=== PATIENT | male | born 1945 | race Caucasian/White ===

== ENCOUNTER 2017-09-02 09:46 | Inpatient (IN) | payer OTHER, MEDICARE ==
[~2017-09-02] VITALS: Ht 185.4 cm; Wt 111.5 kg
[~2017-09-02 09:46] MED LIST: ATEN25 PO; BACL10 PO; CHOL10002 PO; CIPR500 PO; CYAN500 PO; DABI150C PO; DABI75 PO; DILT180 PO; DILT240ER PO; FISH OIL 500 M1 EAC1 PO; FURO20 PO; GABA300 PO; HYDACE10B PO; IRBHYD300 PO; METF500 PO; METO50 PO; METR500 PO; MULTI-DAY PLUS1 EAC1 PO; PIOG15 PO; POTCHL20ER PO; PRAV20 PO; SERT50 PO; TAMS.4ER PO; TEMA7.5 PO; WARF5 PO; WARF7.5 PO
[2017-09-09 04:19] LABS: BASOPHILS PERCENT AUTO 0 % (0-2); EOSINOPHILS PERCENT AUTO 0 % (0-6); Hematocrit 36.4 % (37.0-53.0); Hemoglobin 12.1 g/dL (13.5-17.5); IMMATURE GRAN ABSOLUTE AUTO 0.04 K/mm3 (0.00-0.10); IMMATURE GRAN PERCENT AUTO 0 % (0-1); LYMPHOCYTES ABSOLUTE AUTO 1.69 K/mm3 (0.84-5.20); LYMPHOCYTES PERCENT AUTO 13 % (21-46); MONOCYTES ABSOLUTE AUTO 1.23 K/mm3 (0.16-1.47); MONOCYTES PERCENT AUTO 10 % (4-13); Mean Corpuscular HGB 28.9 pg (26.0-34.0); Mean Corpuscular HGB Conc 33.2 g/dL (31.5-36.5); Mean Corpuscular Volume 87 fL (80-100); Mean Platelet Volume 11.1 fL (9.1-12.4); NEUTROPHILS ABSOLUTE AUTO 9.88 K/mm3 (1.96-9.15); NEUTROPHILS PERCENT AUTO 77 % (41-73); Platelet Count 183 K/mm3 (150-400); RDW Coefficient Variation 14.8 % (11.7-14.2); RDW Standard Deviation 46.8 fL (35.1-46.3); Red Blood Cell Count 4.18 M/mm3 (4.30-5.90); White Blood Cell Count 12.84 K/mm3 (4.00-11.30)
[2017-09-09 06:41] LABS: Chloride, Blood 104 mmol/L (98-108); Potassium, Blood 4.5 mmol/L (3.5-5.5); Sodium, Blood 139 mmol/L (136-145)
[2017-09-09 06:58] LABS: Anion Gap 11 mmol/L (6-16); Blood Urea Nitrogen 17 mg/dL (8-24); Bun/Creatinine Ratio 17.1 (12.0-20.0); CO2, Blood 24 mmol/L (21-32); Calcium, Blood 9.3 mg/dL (8.5-10.1); Creatinine, Blood 0.99 mg/dL (0.60-1.20); Glomerular Filtration Rate >60 (60-); Glucose, Blood 175 mg/dL (70-99)
== END 2017-09-18 11:46 | DRG 470 ==
LOC: SURS 09-08 08:18 → PRE IP 09-08 10:05 → SURS 09-08 13:15
PROVIDERS: Orthopaedic Surgery
PROC: 0SRD0J9 Replacement of Left Knee Joint with Synthetic Substitute, Cemented, Open Approach (ICD-10-PCS; principal; 2017-09-08 10:05)
DX: M17.12 Unilateral primary osteoarthritis, left knee (principal); I48.91 Unspecified atrial fibrillation; E11.9 Type 2 diabetes mellitus without complications; G47.33 Obstructive sleep apnea (adult) (pediatric); E78.00 Pure hypercholesterolemia, unspecified; I10 Essential (primary) hypertension; F32.9 Major depressive disorder, single episode, unspecified; Z87.891 Personal history of nicotine dependence; Z91.81 History of falling; Z96.651 Presence of right artificial knee joint; Z79.01 Long term (current) use of anticoagulants; Z79.891 Long term (current) use of opiate analgesic; Z79.899 Other long term (current) drug therapy; Z79.84 Long term (current) use of oral hypoglycemic drugs
CPT/HCPCS: 36415; 73560-LT; 80048; 82947; 85025; 86850; 86900; 86901; 88300; 94640; 94760; 97110; 97116; 97162; 97165; 97530; 97535; C1776; G8978; G8979; G8987; G8988; J0171; J0690; J0735; J1100; J1885; J2250; J2405; J2795; J7120; Q0163

== ENCOUNTER 2018-10-05 19:57 | Inpatient (IN) | payer OTHER, MEDICARE ==
[~2018-10-05] VITALS: Ht 185.4 cm; Wt 121.3 kg
[~2018-10-05 19:57] MED LIST changes: -HYDACE10B PO; +Norco 10-325 T1 EACH PO
[2018-10-05] MEDS ORDERED: GLIP5 PO (20:30)
[2018-10-05] MEDS ORDERED: NITR100CA PO (20:32)
[2018-10-05 20:34] LABS: BASOPHILS ABSOLUTE AUTO 0.04 K/mm3 (0.00-0.23); BASOPHILS PERCENT AUTO 0 % (0-2); EOSINOPHILS ABSOLUTE AUTO 0.23 K/mm3 (0.00-0.68); EOSINOPHILS PERCENT AUTO 2 % (0-6); Hematocrit 39.9 % (37.0-53.0); Hemoglobin 12.8 g/dL (13.5-17.5); IMMATURE GRAN ABSOLUTE AUTO 0.05 K/mm3 (0.00-0.10); IMMATURE GRAN PERCENT AUTO 0 % (0-1); LYMPHOCYTES ABSOLUTE AUTO 4.53 K/mm3 (0.84-5.20); LYMPHOCYTES PERCENT AUTO 33 % (21-46); MONOCYTES ABSOLUTE AUTO 0.95 K/mm3 (0.16-1.47); MONOCYTES PERCENT AUTO 7 % (4-13); Mean Corpuscular HGB 29.6 pg (26.0-34.0); Mean Corpuscular HGB Conc 32.1 g/dL (31.5-36.5); Mean Corpuscular Volume 92 fL (80-100); Mean Platelet Volume 11.6 fL (9.1-12.4); NEUTROPHILS ABSOLUTE AUTO 8.05 K/mm3 (1.96-9.15); NEUTROPHILS PERCENT AUTO 58 % (41-73); Platelet Count 195 K/mm3 (150-400); RDW Coefficient Variation 13.7 % (11.7-14.2); RDW Standard Deviation 46.7 fL (35.1-46.3); Red Blood Cell Count 4.32 M/mm3 (4.30-5.90); White Blood Cell Count 13.85 K/mm3 (4.00-11.30)
[2018-10-05 20:48] LABS: Alanine Aminotransfer (ALT/SGP 24 U/L (12-78); Albumin, Blood 3.1 g/dL (3.4-5.0); Albumin/Globulin Ratio 0.8 (0.8-1.8); Alk Phos 98 U/L (50-136); Anion Gap 6 mmol/L (6-16); Aspartate Aminotrans (AST/SGOT 21 U/L (12-37); Bilirubin, Total 0.5 mg/dL (0.1-1.0); Blood Urea Nitrogen 14 mg/dL (8-24); Bun/Creatinine Ratio 13.3 (12.0-20.0); CO2, Blood 28 mmol/L (21-32); Calcium, Blood 8.4 mg/dL (8.5-10.1); Chloride, Blood 105 mmol/L (98-108); Creatinine, Blood 1.05 mg/dL (0.60-1.20); Globulin, Blood 3.7 g/dL (2.2-4.0); Glomerular Filtration Rate >60 (60-); Glucose, Blood 179 mg/dL (70-99); Sodium, Blood 139 mmol/L (136-145); Total Protein, Blood 6.8 g/dL (6.4-8.2)
[2018-10-05 23:20] LABS: Troponin I 0.423 ng/mL (0.000-0.040)
[2018-10-06 04:08] LABS: International Normalized Ratio 1.03; Prothrombin Time Results 10.9 Sec (9.7-11.5)
[2018-10-06 07:11] LABS: Hematocrit 40.3 % (37.0-53.0); Hemoglobin 13.2 g/dL (13.5-17.5); Mean Corpuscular HGB 29.6 pg (26.0-34.0); Mean Corpuscular HGB Conc 32.8 g/dL (31.5-36.5); Mean Corpuscular Volume 90 fL (80-100); Mean Platelet Volume 11.6 fL (9.1-12.4); Platelet Count 187 K/mm3 (150-400); RDW Coefficient Variation 13.8 % (11.7-14.2); RDW Standard Deviation 45.3 fL (35.1-46.3); Red Blood Cell Count 4.46 M/mm3 (4.30-5.90); White Blood Cell Count 14.71 K/mm3 (4.00-11.30)
[2018-10-06 07:31] LABS: Alanine Aminotransfer (ALT/SGP 28 U/L (12-78); Albumin, Blood 3.2 g/dL (3.4-5.0); Albumin/Globulin Ratio 0.8 (0.8-1.8); Alk Phos 101 U/L (50-136); Anion Gap 9 mmol/L (6-16); Aspartate Aminotrans (AST/SGOT 66 U/L (12-37); Bilirubin, Total 0.6 mg/dL (0.1-1.0); Blood Urea Nitrogen 14 mg/dL (8-24); Bun/Creatinine Ratio 15.7 (12.0-20.0); CO2, Blood 28 mmol/L (21-32); Calcium, Blood 8.8 mg/dL (8.5-10.1); Chloride, Blood 101 mmol/L (98-108); Creatinine, Blood 0.89 mg/dL (0.60-1.20); Globulin, Blood 3.8 g/dL (2.2-4.0); Glomerular Filtration Rate >60 (60-); Glucose, Blood 153 mg/dL (70-99); Potassium, Blood 3.8 mmol/L (3.5-5.5); Sodium, Blood 138 mmol/L (136-145)
[2018-10-06 07:46] LABS: Troponin I 5.52 ng/mL (0.000-0.040)
[2018-10-06 18:13] LABS: Source, Urine Catheter
[2018-10-06 18:18] LABS: Bilirubin, Urine Neg (Neg); Blood, Urine 5+ (Neg); Glucose Qualitative, Urine Neg (Neg); Ketones, Urine Neg (Neg); Leukocyte Esterase, Urine 3+ (Neg); Nitrite, Urine Neg (Neg); Protein, Urine 3+ (Neg); Urobilinogen, Urine NORM (Normal)
--- NOTE | 2018-10-06 19:18 | NUR ---
END OF SHIFT PT HAS HAD NO CHANGES TO THE ASSSESSMENT, VSS, PLAN RIGHT NOW IS TO MEDICALLY MANAGE THE CHEST PAIN
[2018-10-06 19:44] LABS: Appearance, Urine Bloody (Clear); Color, Urine Red (P-Yellow)
[2018-10-06 19:46] LABS: Bacteria Mod /hpf; Red Blood Cells, Urine TNTC /hpf (0-2); Squamous Epithelial Cells Not Seen /hpf (Few)
--- NOTE | 2018-10-06 23:03 | NUR ---
PM NOTE. ASSUMED CARE OF PT APROX 1900. PT IS A&Ox4 PLEASENT AND COOPERATIVE WITH CARE. PT WAS ADMITTED DUE TO CHEST PAIN WITH ELEVATED TROPONINS. PT IS CURRENTLY ON A HEPARIN GTT AT 15 U/KG/HR DOSING WT 97 KG AND RATE IS 29.1 MLS/HR. TELE INTACT, AFIB IN THE 90'S PER ADVERTISING TRAFFIC MANAGER. PT'S BP 154/105, 1+ EDEMA NOTED TO THE PT'S BLE AND BUE W/TRACE EDEMA TO HIS ABD AREA. L/S CLEAR T/O W/FINE CRACKELS IN THE RIGHT LOWER BASE. PT IS ON RA, RESPERATIONS ARE EVEN AND UNLABORED. BT PRESENT AND HYPERACTIVE, ABD IS SOFT AND NONTENDER TO PALP. PT HAS CHRONIC PICHARDO DUE TO PROSTATE ISSUES, PICHARDO IS PATENT AND DRAINING TO GRAVITY. CALL LIGHT IN REACH, BED IS LOCKED AND LOW WILL CONTINUE TO MONITOR.
--- NOTE | 2018-10-07 05:50 | NUR ---
SHIFT SUMMARY. NO ACUTE CHANGES NOTED THIS SHIFT. PT DENIES ANY CHEST PAIN/PRESSURE, N/V OR SOB. PT'S VS HAVE BEEN STABLE T/O SHIFT. PT HAS BEEN MEDICATED PER EMAR FOR BACK AND GENERALIZED PAIN. PT'S PICHARDO IS PATENT AND DRAINING TO GRAVITY. HEPARIN GTT IS CURRENTLY 15 U/KG/HR WITH A DOSE WT OF 97 KG RUNNING AT 29.1 MLS/HR. INDEPENDENT VERIFY BY SARKIS DAVIS. CALL LIGHT IN REACH, BED IS LOCKED AND LOW WILL CONTINUE TO MONITOR UNTIL REPORT IS GIVEN TO ONCOMING RN.
[2018-10-07 06:09] LABS: Hematocrit 40.2 % (37.0-53.0); Mean Corpuscular HGB 29.7 pg (26.0-34.0); Mean Corpuscular HGB Conc 32.3 g/dL (31.5-36.5); Mean Corpuscular Volume 92 fL (80-100); Mean Platelet Volume 11.1 fL (9.1-12.4); Platelet Count 167 K/mm3 (150-400); RDW Coefficient Variation 13.7 % (11.7-14.2); RDW Standard Deviation 46.5 fL (35.1-46.3); Red Blood Cell Count 4.37 M/mm3 (4.30-5.90); White Blood Cell Count 11.31 K/mm3 (4.00-11.30)
[2018-10-07 06:30] LABS: Anion Gap 8 mmol/L (6-16); Blood Urea Nitrogen 16 mg/dL (8-24); CHOL/HDL RATIO 3.9; CO2, Blood 28 mmol/L (21-32); Calcium, Blood 8.4 mg/dL (8.5-10.1); Chloride, Blood 103 mmol/L (98-108); Cholesterol 135 mg/dL (50-200); Glomerular Filtration Rate >60 (60-); Glucose, Blood 159 mg/dL (70-99); HDL Cholesterol 35 mg/dL (>39); LDL/HDL RATIO 1.7; Low Density Lipoprotein Chol 59 mg/dL (0-110); Magnesium, Blood 2.2 mg/dL (1.6-2.4); Phosphorus, Blood 3.7 mg/dL (2.5-4.9); Potassium, Blood 3.8 mmol/L (3.5-5.5); Sodium, Blood 139 mmol/L (136-145); Triglycerides 205 mg/dL (30-160); Very Low Density Lipoprot Chol 41 mg/dL (6-32)
--- NOTE | 2018-10-07 16:01 | NUR ---
Initial palliative care consult: Cheng is a 73 year old with a-fib, DM, hyperlipidemia, BEBA, chronic indwelling valdez. He states that he has had bladder issues and a catheter for the past 5 months. He also reports that he had received radiation for a lung cancer and that he doesn't require any further treatments for the lung cancer. He has been attempting to go to the [facility] for a urologist to see him. He is currently awaiting a cardiac catheterization, however he reports that the cold storage superintendent didn't give him a time of when that would happen. Cheng lives alone and receives 9 hours/week of caregiver hours that is funded through the [facility]. He is seen through the [facility]. 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 He is looking forward to getting out of the hospital and back into his usual routine. He has no local family. He has a brother in the [place] area and sons in [place]. He denies any current symptoms except that he has a dry itchy rash on his face which he reports he has had for some time. He reports he has taken many different antibiotics over the past few months and nothing seems to have taken care of the UTI that he has. He reports that he is very careful with catheter care at home. He is currently waiting the urine culture results to see what antibiotic he needs to be on to irradicate his UTI. He feels that he has enough help at home if he returns to his baseline prior to discharge. Will await urine culture results and cardiac cath. Will continue to follow for symptom management and [facility].
--- NOTE | 2018-10-07 17:25 | NUR ---
END OF SHIFT; PT REMAINS ON HEPARIN DRIP AT 16UNITS/KG/HR. HE IS ON BEDREST ONLY GETTING UP TO USE BATHROOM. HE HAS PLEASANT AFFECT DURING DAY AND IS COOPERATIVE WITH CARE. PT SAYS THAT HE HAS NOT HAD A BM FOR A FEW DAYS AN WOULD LIKE SOMETHING TO HELP THIS ALONG. TO ORDER BOWEL CARE. HE DENIES ANY CP OR PRESSURE. VITAL SIGNS ARE STABLE CHARTED. HE REMAINS IN AFIB AT 81BEATS PER MINUTE. HE IS AO X 4. UNDERGROUND MINING SECTION FOREMAN MET WITH PATIENT TODAY AND ARE INVOLDVED IN HIS CARE. WILL CONTINUE TOMONITOR THIS PATIENT CLOSELY UNTIL REPORT AND HAND OFF TO NOC SHIFT RN.
--- NOTE | 2018-10-07 19:45 | NUR ---
PM NOTE. ASSUMED CARE OF PT APROX 1900. PT IS A&Ox4 PLEASENT AND COOPERATIVE WITH CARE. PT WAS ADMITTED DUE TO CHEST PAIN WITH ELEVATED TROPONINS. PT IS BEING MEDICALLY MANAGED AT THIS TIME DUE TO CHRONIC PICHARDO, PROVIDER IS WAITING FOR BLOOD CULTURES AND URINE CULTURES TO RETURN. TELE INTACT, AFIB IN THE 70'S-80'S PER SCAFFOLDER. PT'S BP 110/75, TRACE EDEMA NOTED TO THE PT'S BLE AND BUE. L/S CLEAR T/O PT IS ON RA WITH STATS >90%. BT PRESENT AND HYPOACTIVE, ABD IS SOFT AND NONTENDER TO PALP. PT STATES HE FEELS "PLUGGED UP" AND THAT HE NEEEDS TO HAVE A BM. BOWEL CARE STARTED. WILL CONTINUE TO MONITOR.
[2018-10-08 05:31] LABS: Mean Platelet Volume 11.9 fL (9.1-12.4); Platelet Count 170 K/mm3 (150-400)
--- NOTE | 2018-10-08 05:33 | NUR ---
SHIFT SUMMARY. NO ACUTE CHANGES NOTED THIS SHIFT. PT'S VS HAVE BEEN STABLE, PT DENIES ANY CHEST PAIN/PRESSURE, N/V OR SOB. HEPARIN GTT IS AT 17 U/K/HR WITH A RATE OF 33MLS/HR. PICHARDO IS PATENT AND DRAINING TO GRAVITY. PT HAD A SMALL HARD BM THIS SHFIT. CALL LIGHT IN REACH, BED IS LOCKED AND LOW WILL CONTINUE TO MONITOR UNTIL REPORT IS GIVEN TO ONCOMING RN.
--- NOTE | 2018-10-08 05:59 | NUR ---
PT UPDATE... PT WAS UP TO THE BATHROOM, THIS RN NOTICED THE PT'S FEET WERE VERY RED AND HAD 2+ EDEMA. PT ALSO NOTICED THIS AND MENTIONED THEY WERE STARTING TO HURT. PT STATED THAT A HOME HE TAKES LASIX AND K+ PILLS AND WOULD LIKE TO START TAKING THEM AGAIN.
--- NOTE | 2018-10-08 18:16 | NUR ---
END OF SHIFT; PT IS TO HAVE ANGIO IN THE AM WITH . CONSENT IS SIGNED AND WITNESSED. HEPARIN DRIP TO BE STOPPED AT 0500 IN THE AM. PT IS TO BE NPO AFTER MIDNIGHT. WILL CONTINUE TO MONITOR THIS PATIENT UNTIL REPORT AND HANDOFF TO NOC SHIFT RN.
--- NOTE | 2018-10-08 21:55 | NUR ---
ASSUMED CARE OF PATIENT AT APPROXIMATELY 1910 FROM KIARRA Contreras RN. PATIENT ALERT AND ORIENTED X4. PATIENT DENIES PAIN BUT REPORTS NUMBNESS AND TINGLING TO FEET OCCASIONALLY. PATIENT DENIES DIZZINESS OR NAUSEA. REPORTS HAS NOT HAD A BM IN A FEW DAYS; SENNA AND COLACE GIVEN SCHEDULED; PATIENT WILL CALL IF HE NEEDS TO AMBULATE. PATIENT EXPRESSES CONCERN OVER PROCEDURE TOMORROW. AFIB ON TELE W/ PVC'S; OXYGEN SATURATION ABOVE 90% ON ROOM AIR. PATIENT HAS CHRONIC CATH AND REPORTS HE WILL HAVE SUPRAPUBIC CATH PLACED IN FUTURE. HEPARIN INFUSING PER ORDER; WILL STOP AT 0500 FOR ANGIO AT 1000. NPO AT MIDNIGHT. PATIENT SBA W/ WALKER TO BATHROOM; HAS NO AMBULATED SINCE START OF SHIFT. PATIENT CURRENTLY RESTING IN BED; CALL LIGHT IN REACH; BED IN LOWEST POSISTION; BED ALARM ON; WILL CONTINUE TO MONITOR AND ASSESS UNTIL END OF SHIFT.
[2018-10-09 04:26] LABS: International Normalized Ratio 0.97; Prothrombin Time Results 10.3 Sec (9.7-11.5)
--- NOTE | 2018-10-09 06:40 | NUR ---
NO ACUTE CHANGES TO REPORT. PATIENT AMBULATED ONCE TO HAVE A BOWEL MOVEMENT WITH NO RESULTS. HEPARIN GTT TURNED OFF AT 0500; PHARMACIST NOTIFIED. VSS. WILL CONTINUE TO MONITOR AND ASSESS UNTIL END OF SHIFT.
--- NOTE | 2018-10-09 10:07 | NUR ---
HEART CENTER HEART CENTER STAFF TOOK PT TO HEART CENTER VIA BED APPROX 0950. NO S/SX OF ACUTE DISTRESS UPON DEPARTING UNIT.
--- NOTE | 2018-10-09 16:12 | NUR ---
RETURN TO UNIT PT RETURNED FROM UNIT APPROX. 1100 FROM HEART CENTER. PT A&OX4, VITAL SIGNS STABLE. PT HAS RIGHT RADIAL SITE WITH TR BAND IN PLACE WITH 11CC OF AIR IN IT. ARMBOARD ALSO IN PLACE. NO S/SX OF BLEEDING, HEMATOMA.GOOD PULSE AND CIRCULATION IN FINGERS DISTANCE TO SITE. BEGAN MONITORING VITAL SIGNS PER POST ANGIO PROTOCOL. WILL CONTINUE TO MONITOR.
--- NOTE | 2018-10-09 19:12 | NUR ---
SHIFT SUMMARY PT PLEASANT, COOPERATIVE AND USES CALL LIGHT APPROPRIATELY. PT REMAINS A&OX4. VITAL SIGNS REMAIN STABLE. RELEASED AIR OUT OF TR BAND PER PROTOCOL. ALL AIR RELEASED AND TR BAND REMOVED. ARM BOARD REMAINS IN PLACE. NO S/SX OF BLEEDING OR HEMATOMA. PT ABLE TO AMBULATE TO BATHROOM NEEDED. PICHARDO REMAINS IN PLACE, PATENT AND DRAINING. BED IN LOW POSITION, CALL LIGHT IN REACH AND PT DENIES ANY NEEDS AT THIS TIME. WILL CONTINUE TO MONITOR UNTIL HANDOFF TO NIGHTSHIFT RN.
--- NOTE | 2018-10-09 22:27 | NUR ---
ASSUMED CARE OF PATIENT AT APPROXIMATELY 1910 FROM CHARLENE Fallon RN. PATIENT ALERT AND ORIENTED X4. PATIENT DENIES PAIN BUT REPORTS NUMBNESS AND TINGLING TO FEET AND TWO DIGITS ON RIGHT HAND OCCASIONALLY. PATIENT DENIES DIZZINESS OR NAUSEA. PATIENT IS SBA TO ONE ASSIST W/ FWW TO BATHROOM. S/P ANGIO TODAY; TR BAND REMOVED DURING BEDSIDE REPORT BY TRANG RN AND TEGADERM PLACED; PATIENT INSTRUCTED ON POST ANGIO RESTRICTIONS; SMALL AMOUNT OF DRIED BLOOD NOTED TO TEDADERM; DENIES TENDERNESS; SOFT TO TOUCH; NO S/S OF HEMATOMA NOTED. AFIB ON TELE W/ PVC'S; OXYGEN SATURATION ABOVE 90% ON ROOM AIR. PATIENT HAS CHRONIC CATH AND REPORTS HE WILL HAVE SUPRAPUBIC CATH PLACED IN FUTURE. PATIENT HAD BM TODAY. PATIENT CURRENTLY RESTING IN BED; CALL LIGHT IN REACH; BED IN LOWEST POSISTION; BED ALARM ON; WILL CONTINUE TO MONITOR AND ASSESS UNTIL END OF SHIFT.
[2018-10-10 05:24] LABS: Mean Platelet Volume 11.6 fL (9.1-12.4); Platelet Count 180 K/mm3 (150-400)
--- NOTE | 2018-10-10 06:38 | NUR ---
NO ACUTE CHANGES TO REPORT FROM PREVIOUS NURSING NOTE. EKG DONE. DR. KAM IN TO SEE PATIENT THIS MORNING. WILL CONTINUE TO MONITOR AND ASSESS UNTIL END OF SHIFT.
[2018-10-10 10:01] LABS: Anion Gap 7 mmol/L (6-16); Blood Urea Nitrogen 19 mg/dL (8-24); Bun/Creatinine Ratio 22.6 (12.0-20.0); CO2, Blood 26 mmol/L (21-32); Calcium, Blood 8.6 mg/dL (8.5-10.1); Chloride, Blood 105 mmol/L (98-108); Creatinine, Blood 0.84 mg/dL (0.60-1.20); Glomerular Filtration Rate >60 (60-); Glucose, Blood 203 mg/dL (70-99); Potassium, Blood 3.9 mmol/L (3.5-5.5); Sodium, Blood 138 mmol/L (136-145)
[2018-10-10] MEDS ORDERED: ASPI81CH PO (13:09)
[2018-10-10] MEDS ORDERED: DOCU100 PO (13:10)
[2018-10-10] MEDS ORDERED: NITR.4SL SL (13:11)
[2018-10-10] MEDS ORDERED: XARELTO20 MG PO (13:12)
[2018-10-10] MEDS ORDERED: ACIDOPHILUS LA1 EACH PO (13:13)
--- NOTE | 2018-10-10 19:25 | NUR ---
DISCHARGE Pt discharged from unit at 1545. Pt left via taxi. No changes to right transradial site. Telemetry removed. Medication orders sent to [facility]. Pt stated he would be going to the via immediately after discharge to obtain medications.
== END 2018-10-10 15:54 | disposition home or self-care (01) | DRG 282 ==
LOC: ER 19:57 → ERHOLD 22:29 → PCU 10-06 12:59 → ERHOLD 10-06 12:59 → PCU 10-06 15:01
PROVIDERS: Emergency Medicine; Internal Medicine; Internal Medicine Cardiovascular Disease; ADMIT Internal Medicine
PROC: B2111ZZ Fluoroscopy of Multiple Coronary Arteries using Low Osmolar Contrast (ICD-10-PCS; principal; 2018-10-09)
PROC: 4A023N7 Measurement of Cardiac Sampling and Pressure, Left Heart, Percutaneous Approach (ICD-10-PCS; 2018-10-09)
DX: I21.4 Non-ST elevation (NSTEMI) myocardial infarction (principal); M19.90 Unspecified osteoarthritis, unspecified site; E78.5 Hyperlipidemia, unspecified; E11.9 Type 2 diabetes mellitus without complications; Z79.84 Long term (current) use of oral hypoglycemic drugs; G47.33 Obstructive sleep apnea (adult) (pediatric); E66.9 Obesity, unspecified; Z68.34 Body mass index [BMI] 34.0-34.9, adult; Z79.82 Long term (current) use of aspirin; Z79.02 Long term (current) use of antithrombotics/antiplatelets; E78.00 Pure hypercholesterolemia, unspecified; I48.0 Paroxysmal atrial fibrillation; I25.10 Atherosclerotic heart disease of native coronary artery without angina pectoris; Z85.118 Personal history of other malignant neoplasm of bronchus and lung; Z92.3 Personal history of irradiation; J44.9 Chronic obstructive pulmonary disease, unspecified; I71.2 Thoracic aortic aneurysm, without rupture; T83.511D Infection and inflammatory reaction due to indwelling urethral catheter, subsequent encounter; Z87.891 Personal history of nicotine dependence
CPT/HCPCS: 36415; 51702; 71045; 80048; 80053; 80061; 80069; 81001; 82550; 82947; 83036; 83690; 83735; 84484; 85025; 85027; 85049; 85610; 85730; 86850; 86900; 86901; 87040; 87086; 87106; 93005; 93010; 93306; 93458; 96365; 96366; 96375; 99152; 99285-25; C1769; C1894; J1644; J2250; J2405; J3010; J7030; Q9967

== ENCOUNTER 2019-06-03 10:32 | Inpatient (IN) | payer OTHER, MEDICARE ==
[~2019-06-03] VITALS: Ht 182.9 cm; Wt 121.4 kg
[~2019-06-03 10:32] MED LIST changes: +ACIDOPHILUS LA1 EACH PO; +Aspirin EC81 MG PO; +DOCU100 PO; +GLIP5 PO; +NITR.4SL SL; +NITR100CA PO; +XARELTO20 MG PO
[2019-06-03 11:23] LABS: Hematocrit 40.2 % (37.0-53.0); Hemoglobin 13.1 g/dL (13.5-17.5); Mean Corpuscular HGB 28.9 pg (26.0-34.0); Mean Corpuscular HGB Conc 32.6 g/dL (31.5-36.5); Mean Corpuscular Volume 89 fL (80-100); Mean Platelet Volume 11.6 fL (9.1-12.4); Platelet Count 190 K/mm3 (150-400); RDW Coefficient Variation 13.2 % (11.7-14.2); RDW Standard Deviation 42.5 fL (35.1-46.3); Red Blood Cell Count 4.54 M/mm3 (4.30-5.90); White Blood Cell Count 18.23 K/mm3 (4.00-11.30)
[2019-06-03 11:35] LABS: Alanine Aminotransfer (ALT/SGP 18 U/L (12-78); Albumin/Globulin Ratio 0.8 (0.8-1.8); Alk Phos 113 U/L (50-136); Anion Gap 6 mmol/L (6-16); Aspartate Aminotrans (AST/SGOT 19 U/L (12-37); Bilirubin, Total 0.4 mg/dL (0.1-1.0); Blood Urea Nitrogen 18 mg/dL (8-24); Bun/Creatinine Ratio 19.9 (12.0-20.0); CO2, Blood 29 mmol/L (21-32); Calcium, Blood 8.9 mg/dL (8.5-10.1); Chloride, Blood 103 mmol/L (98-108); Globulin, Blood 3.8 g/dL (2.2-4.0); Glomerular Filtration Rate >60 (60-); Glucose, Blood 287 mg/dL (70-99); Potassium, Blood 4.1 mmol/L (3.5-5.5); Sodium, Blood 138 mmol/L (136-145); Total Protein, Blood 6.8 g/dL (6.4-8.2)
[2019-06-03 12:03] LABS: BASOPHILS PERCENT MAN 0 % (0-2); EOSINOPHILS ABSOLUTE MAN 0.36 K/mm3 (0.00-0.68); EOSINOPHILS PERCENT MAN 2 % (0-6); LYMPHOCYTES ABSOLUTE MAN 8.75 K/mm3 (0.84-5.20); LYMPHOCYTES PERCENT MAN 48 % (21-46); MONOCYTES ABSOLUTE MAN 1.27 K/mm3 (0.16-1.47); MONOCYTES PERCENT MAN 7 % (4-13); NEUTROPHILS ABSOLUTE MAN 7.83 K/mm3 (1.96-9.15); SEG NEUTROPHILS PERCENT MAN 43 % (41-73); TOTAL CELLS COUNTED 100
[2019-06-03 12:07] LABS: Source, Urine Voided
[2019-06-03 12:12] LABS: Bilirubin, Urine Neg (Neg); Blood, Urine 4+ (Neg); Glucose Qualitative, Urine 4+ (Neg); Ketones, Urine 1+ (Neg); Leukocyte Esterase, Urine 3+ (Neg); Nitrite, Urine Pos (Neg); Protein, Urine 2+ (Neg); Urobilinogen, Urine 2+ (Normal); pH, Urine 6.5 (5.0-8.0)
[2019-06-03 12:25] LABS: Appearance, Urine Cloudy (Clear); Color, Urine Yellow (P-Yellow)
[2019-06-03 12:39] LABS: Red Blood Cells, Urine TNTC /hpf (0-2); White Blood Cells, Urine TNTC /hpf (0-5)
[2019-06-03 12:40] LABS: Bacteria Many /hpf; Squamous Epithelial Cells Few /hpf (Few)
[2019-06-03] MEDS ORDERED: ALBU90OI INH (13:46)
[2019-06-03] MEDS ORDERED: Triple Antibio1 EACH TOP ×2 (13:47→13:48)
[2019-06-03] MEDS ORDERED: BETA.05TCA TOP (13:48)
[2019-06-03] MEDS ORDERED: LANOXIN125 MCG PO (13:49)
[2019-06-03] MEDS ORDERED: THERA-D2000 UNIT PO (13:49)
[2019-06-03] MEDS ORDERED: DOCU100 PO (13:49)
[2019-06-03] MEDS ORDERED: Cymbalta20 MG PO (13:50)
[2019-06-03] MEDS ORDERED: FURO20 PO (13:51)
[2019-06-03] MEDS ORDERED: LIDO700A20 TOP (13:52)
[2019-06-03] MEDS ORDERED: NIZORAL A-D125 ML TOP (13:52)
[2019-06-03] MEDS ORDERED: LIDO5TO TOP (13:53)
[2019-06-03] MEDS ORDERED: TOPROL XL200 MG PO (13:53)
[2019-06-03] MEDS ORDERED: LISI20 PO (13:53)
[2019-06-03] MEDS ORDERED: NITR.4SL SL (13:54)
[2019-06-03] MEDS ORDERED: OMEPRAZOLE20 MG PO (13:54)
[2019-06-03] MEDS ORDERED: THERA1 EACH PO (13:54)
[2019-06-03] MEDS ORDERED: POTA10T PO (13:55)
[2019-06-03] MEDS ORDERED: XARELTO15 MG PO (13:55)
[2019-06-03] MEDS ORDERED: SENN187 PO (13:56)
[2019-06-03 15:31] LABS: Digoxin (Lanoxin) 0.89 ug/mL (0.80-2.00)
--- NOTE | 2019-06-03 18:06 | NUR ---
PT SETTLED TO ROOM ADMIT DONE EXCEPT HISTORY. DENIES PAIN. FOLLOWS COMMANDS. PRESENTS A/O. WATCHING FOOTBALL. SUPRA PUBIC CATH NOT CHANGED PER NOTE BY DR. LEARY. NO OTHER CONCERNS AT THIS TIME. BED IN LOW POSITOIN, CALL LITE IN REACH, BED ALARM ON FOR SAFETY
[2019-06-04 05:14] LABS: BASOPHILS ABSOLUTE AUTO 0.06 K/mm3 (0.00-0.23); BASOPHILS PERCENT AUTO 0 % (0-2); EOSINOPHILS ABSOLUTE AUTO 0.25 K/mm3 (0.00-0.68); EOSINOPHILS PERCENT AUTO 2 % (0-6); Hematocrit 40.9 % (37.0-53.0); Hemoglobin 13.1 g/dL (13.5-17.5); Mean Corpuscular HGB 29.4 pg (26.0-34.0); Mean Platelet Volume 11.2 fL (9.1-12.4); Platelet Count 166 K/mm3 (150-400); RDW Coefficient Variation 13.2 % (11.7-14.2); RDW Standard Deviation 44.3 fL (35.1-46.3); Red Blood Cell Count 4.45 M/mm3 (4.30-5.90); White Blood Cell Count 15.54 K/mm3 (4.00-11.30)
[2019-06-04 05:20] LABS: IMMATURE GRAN ABSOLUTE AUTO 0.07 K/mm3 (0.00-0.10); IMMATURE GRAN PERCENT AUTO 1 % (0-1); LYMPHOCYTES ABSOLUTE AUTO 7.86 K/mm3 (0.84-5.20); LYMPHOCYTES PERCENT AUTO 51 % (21-46); MONOCYTES ABSOLUTE AUTO 1.04 K/mm3 (0.16-1.47); MONOCYTES PERCENT AUTO 7 % (4-13); Mean Corpuscular Volume 92 fL (80-100); NEUTROPHILS ABSOLUTE AUTO 6.26 K/mm3 (1.96-9.15); NEUTROPHILS PERCENT AUTO 40 % (41-73)
--- NOTE | 2019-06-04 05:24 | NUR ---
SHIFT SUMMARY INTERMITTENT CONFUSION THROUGHOUT THE NIGHT. LS CLEAR, DENIES SOB. DENIES NAUSEA. PAIN RATED 6/10 IN BACK, CHRONIC PAIN, TYLENOL GIVEN @ 0515. TELE REPORTS AFIB WITH HR IN THE 60'S. CATHETER DRAINING CLEAR YELLOW. L HAND IV IS SL. CT WAS NEGATIVE. TEDS ON. VSS ON RA. UNSURE OF DC PLAN AT THIS TIME.
[2019-06-04 05:26] LABS: International Normalized Ratio 1.08; Prothrombin Time Results 11.4 Sec (9.7-11.5)
[2019-06-04 05:45] LABS: Magnesium, Blood 1.9 mg/dL (1.6-2.4)
[2019-06-04 05:53] LABS: Alanine Aminotransfer (ALT/SGP 18 U/L (12-78); Albumin, Blood 2.8 g/dL (3.4-5.0); Albumin/Globulin Ratio 0.7 (0.8-1.8); Alk Phos 105 U/L (50-136); Anion Gap 6 mmol/L (6-16); Aspartate Aminotrans (AST/SGOT 16 U/L (12-37); Bilirubin, Total 0.4 mg/dL (0.1-1.0); Blood Urea Nitrogen 16 mg/dL (8-24); Bun/Creatinine Ratio 16.5 (12.0-20.0); CO2, Blood 28 mmol/L (21-32); Calcium, Blood 8.9 mg/dL (8.5-10.1); Chloride, Blood 103 mmol/L (98-108); Creatinine, Blood 0.97 mg/dL (0.60-1.20); Globulin, Blood 3.8 g/dL (2.2-4.0); Glomerular Filtration Rate >60 (60-); Glucose, Blood 223 mg/dL (70-99); Potassium, Blood 3.9 mmol/L (3.5-5.5); Sodium, Blood 137 mmol/L (136-145); Total Protein, Blood 6.6 g/dL (6.4-8.2)
--- NOTE | 2019-06-04 09:00 | NUR ---
PT PLEASANT COOP A/O. SOME CONFUSION. DENIES PIAN. CONCERNS ABOUT HIS DREAMS AT NIGHT. WONDERS IF THIS WHY ADMITTED TO HOSP. ADVISED HERE FOR UTI. H/R IRREG, NO MURMER NOTED. PER TELE: AFIB AT 70. LUNGS CLEAR, RESP EASY, UNLABORED. ON R.A. BT X4 LAST BM YEST. VOIDS SUPRAPUBIC CATH. CLOUDY, YELLOW FLUID IN BAG. PT IS 1 SSST TO BATHROOM. BED I NLOW POSITION, CALL LITE IN REACH, CALLS APPROP. BED ALARM ON FOR SAFETY
--- NOTE | 2019-06-04 18:31 | NUR ---
PT PLEASANT TODAY. OCCATIONAL OUT OF PLACE STATEMENTS TODAY. DID PLACE ON GOWN/GLOVE SPLASH PRECAUTIONS. MRSA URINE. ADJUSTED MEDICATIONS. NO OTHER CONCERNS AT THIS TIME .BED IN LOW POSITION, CALL LITE IN REACH, CALLS APPROP. BED ALARM ON FOR SAFETY
[2019-06-05 04:50] LABS: BASOPHILS ABSOLUTE AUTO 0.05 K/mm3 (0.00-0.23); BASOPHILS PERCENT AUTO 0 % (0-2); EOSINOPHILS ABSOLUTE AUTO 0.26 K/mm3 (0.00-0.68); EOSINOPHILS PERCENT AUTO 2 % (0-6); Hematocrit 37.8 % (37.0-53.0); Hemoglobin 12.2 g/dL (13.5-17.5); IMMATURE GRAN ABSOLUTE AUTO 0.05 K/mm3 (0.00-0.10); IMMATURE GRAN PERCENT AUTO 0 % (0-1); LYMPHOCYTES ABSOLUTE AUTO 6.05 K/mm3 (0.84-5.20); LYMPHOCYTES PERCENT AUTO 42 % (21-46); MONOCYTES ABSOLUTE AUTO 1.21 K/mm3 (0.16-1.47); MONOCYTES PERCENT AUTO 9 % (4-13); Mean Corpuscular HGB 29.3 pg (26.0-34.0); Mean Corpuscular HGB Conc 32.3 g/dL (31.5-36.5); Mean Corpuscular Volume 91 fL (80-100); Mean Platelet Volume 11.4 fL (9.1-12.4); NEUTROPHILS ABSOLUTE AUTO 6.68 K/mm3 (1.96-9.15); NEUTROPHILS PERCENT AUTO 47 % (41-73); Platelet Count 166 K/mm3 (150-400); RDW Coefficient Variation 13.1 % (11.7-14.2); RDW Standard Deviation 43.4 fL (35.1-46.3); Red Blood Cell Count 4.16 M/mm3 (4.30-5.90)
[2019-06-05 05:12] LABS: Anion Gap 4 mmol/L (6-16); Blood Urea Nitrogen 19 mg/dL (8-24); Bun/Creatinine Ratio 17.8 (12.0-20.0); CO2, Blood 30 mmol/L (21-32); Calcium, Blood 8.5 mg/dL (8.5-10.1); Chloride, Blood 103 mmol/L (98-108); Creatinine, Blood 1.07 mg/dL (0.60-1.20); Glomerular Filtration Rate >60 (60-); Glucose, Blood 331 mg/dL (70-99); Sodium, Blood 137 mmol/L (136-145)
--- NOTE | 2019-06-05 05:32 | NUR ---
SHIFT SUMMARY AOX4. LS CLEAR, DENIES SOB. NO C/O NAUSEA. PAIN RATED 6/10 IN LOWER BACK. TYLENOL GIVEN @ 2029. NO RELIEF, CHRONIC BACK PAIN. TEDS ON. SUPRAPUBIC CATH DRAINING CLEAR YELLOW. CONT PULSE OX. PT IS ON RA. TELE SHOWS AFIB WITH PVC'S. L HAND IV IS SL. MOLES ON BACK AND SCARS ON KNEES FROM PREVIOUS TKA. PT IN CONTACT PRECAUTIONS FOR MRSA IN URINE. VSS. UNSURE OF DC PLAN. [facility] PT.
[2019-06-05 16:44] LABS: Vancomycin, Trough 17.2 ug/mL (5.0-10.0)
--- NOTE | 2019-06-05 17:17 | NUR ---
SHIFT SUMMARY: PT IS A/O X 4 THIS SHIFT HE IS PLEASANT AND COOPERATIVE WITH CARE. SUPRAPUBIC PICHARDO IS PATENT AND THE INSERTION SITE WAS CLEANSED AND A SPLIT GAUZE PLACED PER ORDERS FROM DR RAMIREZ. EDUCATION WAS COMPLETED WITH PT ON HOW TO CARE FOR THE SITE WHEN HE RETURNS HOME. PT HAS SLEPT MOST OF THE DAY AND DECLINED GETTING UP FOR A SHOWER STATING HE WAS TOO COLD. PT USES CALL LIGHT FOR EHLP WHEN NEEDED.
[2019-06-06 05:37] LABS: BASOPHILS ABSOLUTE AUTO 0.06 K/mm3 (0.00-0.23); BASOPHILS PERCENT AUTO 1 % (0-2); EOSINOPHILS ABSOLUTE AUTO 0.22 K/mm3 (0.00-0.68); EOSINOPHILS PERCENT AUTO 2 % (0-6); Hematocrit 38.7 % (37.0-53.0); Hemoglobin 12.6 g/dL (13.5-17.5); IMMATURE GRAN ABSOLUTE AUTO 0.07 K/mm3 (0.00-0.10); IMMATURE GRAN PERCENT AUTO 1 % (0-1); LYMPHOCYTES ABSOLUTE AUTO 5.21 K/mm3 (0.84-5.20); LYMPHOCYTES PERCENT AUTO 41 % (21-46); MONOCYTES ABSOLUTE AUTO 0.81 K/mm3 (0.16-1.47); MONOCYTES PERCENT AUTO 6 % (4-13); Mean Corpuscular HGB 28.9 pg (26.0-34.0); Mean Corpuscular HGB Conc 32.6 g/dL (31.5-36.5); Mean Corpuscular Volume 89 fL (80-100); Mean Platelet Volume 11.9 fL (9.1-12.4); NEUTROPHILS ABSOLUTE AUTO 6.26 K/mm3 (1.96-9.15); NEUTROPHILS PERCENT AUTO 50 % (41-73); Platelet Count 167 K/mm3 (150-400); RDW Coefficient Variation 13.1 % (11.7-14.2); RDW Standard Deviation 42.4 fL (35.1-46.3); Red Blood Cell Count 4.36 M/mm3 (4.30-5.90); White Blood Cell Count 12.63 K/mm3 (4.00-11.30)
[2019-06-06 05:59] LABS: Anion Gap 4 mmol/L (6-16); Blood Urea Nitrogen 18 mg/dL (8-24); Bun/Creatinine Ratio 18.8 (12.0-20.0); CO2, Blood 30 mmol/L (21-32); Calcium, Blood 8.4 mg/dL (8.5-10.1); Chloride, Blood 102 mmol/L (98-108); Creatinine, Blood 0.96 mg/dL (0.60-1.20); Glomerular Filtration Rate >60 (60-); Glucose, Blood 297 mg/dL (70-99); Potassium, Blood 3.8 mmol/L (3.5-5.5); Sodium, Blood 136 mmol/L (136-145)
--- NOTE | 2019-06-06 06:24 | NUR ---
SHIFT SUMMARY NO ASSESSMENT CHANGES. TYLENOL @ 0020. DRESSING OVER SUPRAPUBIC CATH INSERTION SITE C/D/I. VSS ON RA.
[2019-06-06] MEDS ORDERED: FURO20 PO (11:35)
[2019-06-06] MEDS ORDERED: OMEPRAZOLE20 MG PO (11:36)
[2019-06-06] MEDS ORDERED: BACI500TO TOP (11:37)
[2019-06-06] MEDS ORDERED: BASAGLAR K100 UNIT/1 SC (11:38)
[2019-06-06] MEDS ORDERED: Humalog100 UNIT/1 SC (11:39)
[2019-06-06] MEDS ORDERED: Vsl#3 Capsule1 EACH PO (11:40)
[2019-06-06] MEDS ORDERED: Pravachol40 MG PO (11:40)
[2019-06-06] MEDS ORDERED: CIPR500 PO (11:41)
[2019-06-06] MEDS ORDERED: POTA10T PO (11:41)
--- NOTE | 2019-06-06 14:09 | NUR ---
PT DCD HOME WITH FRIENDS. ALL RX AND INSTRUCTIONS REVIEWED WITH PT. [facility] F/U WAS SCHEDULED BY CASE MANAGEMENT AND PT STATES HE WILL BE ABLE TO ATTEND HIS HOSPITAL F/U. IV DCD WITH NO ISSUES. RX FAXED TO [facility] PER PT REQUEST. PT HAS A WALLET IN THE SECURITY OFFICE SAFE, SECURITY WAS NOTIFIED OF PT DC AND PT IS STOPPING BY THE SECURITY OFFICE ON HIS WAY OUT WITH THE RECEIPT. PT TOOK ALL PERSONAL BELONGINGS. PT STABLE UPON DC.
== END 2019-06-06 14:17 | disposition home or self-care (01) | DRG 698 ==
LOC: ER 10:32 → MEDS 14:26
PROVIDERS: Emergency Medicine; Internal Medicine; Nurse Practitioner Acute Care; ADMIT Hospitalist
DX: T83.511A Infection and inflammatory reaction due to indwelling urethral catheter, initial encounter (principal); G92 Toxic encephalopathy; C91.10 Chronic lymphocytic leukemia of B-cell type not having achieved remission; N39.0 Urinary tract infection, site not specified; B95.62 Methicillin resistant Staphylococcus aureus infection as the cause of diseases classified elsewhere; E11.9 Type 2 diabetes mellitus without complications; I48.2 Chronic atrial fibrillation; I11.0 Hypertensive heart disease with heart failure; E66.01 Morbid (severe) obesity due to excess calories; I25.10 Atherosclerotic heart disease of native coronary artery without angina pectoris; G47.33 Obstructive sleep apnea (adult) (pediatric); N40.0 Benign prostatic hyperplasia without lower urinary tract symptoms; Z68.36 Body mass index [BMI] 36.0-36.9, adult; I25.2 Old myocardial infarction; Z88.5 Allergy status to narcotic agent; Z88.8 Allergy status to other drugs, medicaments and biological substances; Z79.84 Long term (current) use of oral hypoglycemic drugs; Z79.82 Long term (current) use of aspirin; Z79.899 Other long term (current) drug therapy; Z87.891 Personal history of nicotine dependence
CPT/HCPCS: 36415; 70450; 71046; 80048; 80053; 80162; 80202; 81001; 82947; 83036; 83735; 83880; 84484; 85025; 85610; 87040; 87077; 87086; 87147; 87186; 93005; 93010; 94762; 96365; 97110; 97116; 97161; 99285-25; A9270; J0696; J3370; J7030; J7050

== ENCOUNTER 2019-07-23 14:48 | Emergency (ER) | payer OTHER, MEDICARE ==
[~2019-07-23] VITALS: Ht 182.9 cm; Wt 125.6 kg
[~2019-07-23 14:48] MED LIST changes: +ALBU90OI INH; +BASAGLAR K100 UNIT/1 SC; +BETA.05TCA TOP; +Cymbalta20 MG PO; +Hair, Skin & N1 EACH PO; +LANOXIN125 MCG PO; +LIDO5TO TOP; +LIDO700A20 TOP; +LISI20 PO; +NEOPOLBACB BOTHEYES; +NIZORAL A-D125 ML TOP; +NOVOLOG FL100 UNIT/1 SC; +OMEPRAZOLE20 MG PO; +POTA10T PO; +Pravachol40 MG PO; +SENN187 PO; +THERA-D2000 UNIT PO; +TOPROL XL200 MG PO; +Triple Antibio1 EACH TOP; +Vsl#3 Capsule1 EACH PO
[2019-07-23 15:47] LABS: Hematocrit 43.4 % (37.0-53.0); Hemoglobin 13.7 g/dL (13.5-17.5); Mean Corpuscular HGB 28.8 pg (26.0-34.0); Mean Corpuscular HGB Conc 31.6 g/dL (31.5-36.5); Mean Corpuscular Volume 91 fL (80-100); Mean Platelet Volume 11.5 fL (9.1-12.4); Platelet Count 246 K/mm3 (150-400); RDW Coefficient Variation 13.8 % (11.7-14.2); RDW Standard Deviation 46.3 fL (35.1-46.3); Red Blood Cell Count 4.75 M/mm3 (4.30-5.90); White Blood Cell Count 24.06 K/mm3 (4.00-11.30)
[2019-07-23 16:04] LABS: Alanine Aminotransfer (ALT/SGP 14 U/L (12-78); Albumin, Blood 3.2 g/dL (3.4-5.0); Albumin/Globulin Ratio 0.8 (0.8-1.8); Alk Phos 108 U/L (50-136); Anion Gap 6 mmol/L (6-16); Aspartate Aminotrans (AST/SGOT 11 U/L (12-37); Bilirubin, Total 0.5 mg/dL (0.1-1.0); Blood Urea Nitrogen 14 mg/dL (8-24); Bun/Creatinine Ratio 14.1 (12.0-20.0); CO2, Blood 28 mmol/L (21-32); Calcium, Blood 8.8 mg/dL (8.5-10.1); Chloride, Blood 110 mmol/L (98-108); Creatinine, Blood 0.99 mg/dL (0.60-1.20); Globulin, Blood 4.1 g/dL (2.2-4.0); Glomerular Filtration Rate >60 (60-); Glucose, Blood 123 mg/dL (70-99); Potassium, Blood 4.1 mmol/L (3.5-5.5); Sodium, Blood 144 mmol/L (136-145); Total Protein, Blood 7.3 g/dL (6.4-8.2)
[2019-07-23 16:46] LABS: BASOPHILS PERCENT MAN 0 % (0-2); EOSINOPHILS ABSOLUTE MAN 0.24 K/mm3 (0.00-0.68); EOSINOPHILS PERCENT MAN 1 % (0-6); LYMPHOCYTES ABSOLUTE MAN 12.99 K/mm3 (0.84-5.20); LYMPHOCYTES PERCENT MAN 54 % (21-46); MONOCYTES PERCENT MAN 5 % (4-13); NEUTROPHILS ABSOLUTE MAN 9.62 K/mm3 (1.96-9.15); SEG NEUTROPHILS PERCENT MAN 40 % (41-73); TOTAL CELLS COUNTED 100
[2019-07-23 17:11] LABS: Source, Urine Catheter
[2019-07-23 17:14] LABS: Appearance, Urine Cloudy (Clear); Blood, Urine 3+ (Neg); Color, Urine Yellow (P-Yellow); Glucose Qualitative, Urine 1+ (Neg); Ketones, Urine 1+ (Neg); Leukocyte Esterase, Urine 3+ (Neg); Nitrite, Urine Pos (Neg); Protein, Urine 3+ (Neg); Specific Gravity, Urine 1.025 (1.003-1.022); Urobilinogen, Urine 2+ (Normal)
[2019-07-23 17:34] LABS: Bilirubin, Urine 1+ (Neg)
[2019-07-23 17:36] LABS: Red Blood Cells, Urine 50-100 /hpf (0-2); White Blood Cells, Urine TNTC /hpf (0-5)
[2019-07-23 17:37] LABS: Bacteria Many /hpf; Squamous Epithelial Cells Few /hpf (Few)
[2019-07-23] MEDS ORDERED: Bactrim Ds Tab1 EACH PO (17:42)
[2019-07-23] MEDS ORDERED: Keflex500 MG PO (17:42)
== END 2019-07-23 18:00 | disposition home or self-care (01) ==
LOC: ER 14:48
PROVIDERS: Physician Assistant
DX: T83.83XA Hemorrhage due to genitourinary prosthetic devices, implants and grafts, initial encounter (principal); N49.8 Inflammatory disorders of other specified male genital organs; D72.829 Elevated white blood cell count, unspecified; Z87.891 Personal history of nicotine dependence; Z88.8 Allergy status to other drugs, medicaments and biological substances; Z88.5 Allergy status to narcotic agent; Z79.899 Other long term (current) drug therapy; Z79.82 Long term (current) use of aspirin; Z79.4 Long term (current) use of insulin; Z79.01 Long term (current) use of anticoagulants
CPT/HCPCS: 36415; 80053; 81001; 85025; 87077; 87086; 87147; 87186; 99283; A9270-GY

== ENCOUNTER 2019-09-20 00:47 | Inpatient (IN) | payer OTHER, MEDICARE ==
[~2019-09-20] VITALS: Ht 182.9 cm; Wt 119.8 kg
[~2019-09-20 00:47] MED LIST changes: +Bactrim Ds Tab1 EACH PO; +Keflex500 MG PO
[2019-09-20 01:43] LABS: BASOPHILS ABSOLUTE AUTO 0.06 K/mm3 (0.00-0.23); BASOPHILS PERCENT AUTO 0 % (0-2); EOSINOPHILS ABSOLUTE AUTO 0.13 K/mm3 (0.00-0.68); EOSINOPHILS PERCENT AUTO 1 % (0-6); Hematocrit 37.6 % (37.0-53.0); IMMATURE GRAN ABSOLUTE AUTO 0.13 K/mm3 (0.00-0.10); IMMATURE GRAN PERCENT AUTO 1 % (0-1); LYMPHOCYTES ABSOLUTE AUTO 12.36 K/mm3 (0.84-5.20); LYMPHOCYTES PERCENT AUTO 48 % (21-46); MONOCYTES ABSOLUTE AUTO 1.61 K/mm3 (0.16-1.47); MONOCYTES PERCENT AUTO 6 % (4-13); Mean Corpuscular HGB 28.8 pg (26.0-34.0); Mean Corpuscular HGB Conc 31.9 g/dL (31.5-36.5); Mean Corpuscular Volume 90 fL (80-100); Mean Platelet Volume 11.7 fL (9.1-12.4); NEUTROPHILS ABSOLUTE AUTO 11.37 K/mm3 (1.96-9.15); NEUTROPHILS PERCENT AUTO 44 % (41-73); Platelet Count 180 K/mm3 (150-400); RDW Coefficient Variation 13.7 % (11.7-14.2); RDW Standard Deviation 45.2 fL (35.1-46.3); Red Blood Cell Count 4.17 M/mm3 (4.30-5.90); White Blood Cell Count 25.66 K/mm3 (4.00-11.30)
[2019-09-20 01:56] LABS: Alanine Aminotransfer (ALT/SGP 15 U/L (12-78); Albumin, Blood 3.1 g/dL (3.4-5.0); Albumin/Globulin Ratio 0.8 (0.8-1.8); Alk Phos 79 U/L (50-136); Anion Gap 5 mmol/L (6-16); Aspartate Aminotrans (AST/SGOT 12 U/L (12-37); Bilirubin, Total 0.7 mg/dL (0.1-1.0); Blood Urea Nitrogen 16 mg/dL (8-24); Bun/Creatinine Ratio 19.2 (12.0-20.0); CO2, Blood 26 mmol/L (21-32); Calcium, Blood 8.5 mg/dL (8.5-10.1); Chloride, Blood 108 mmol/L (98-108); Creatinine, Blood 0.83 mg/dL (0.60-1.20); Globulin, Blood 3.8 g/dL (2.2-4.0); Glomerular Filtration Rate >60 (60-); Glucose, Blood 136 mg/dL (70-99); Potassium, Blood 3.9 mmol/L (3.5-5.5); Sodium, Blood 139 mmol/L (136-145); Total Protein, Blood 6.9 g/dL (6.4-8.2)
[2019-09-20 02:00] LABS: Source, Urine Catheter
[2019-09-20 02:04] LABS: Appearance, Urine Cloudy (Clear); Bilirubin, Urine Neg (Neg); Blood, Urine 5+ (Neg); Color, Urine Amber (P-Yellow); Glucose Qualitative, Urine 4+ (Neg); Ketones, Urine 1+ (Neg); Leukocyte Esterase, Urine 3+ (Neg); Nitrite, Urine Neg (Neg); Protein, Urine 3+ (Neg); Urobilinogen, Urine NORM (Normal)
[2019-09-20 02:11] LABS: Bacteria Many /hpf; Mucus Light (0-Heavy); Red Blood Cells, Urine TNTC /hpf (0-2); Squamous Epithelial Cells Not Seen /hpf (Few); Uric Acid Crystals Many /hpf; White Blood Cells, Urine 25-50 /hpf (0-5)
[2019-09-20] MEDS ORDERED: METF500 PO (02:51)
[2019-09-20 05:30] LABS: Hematocrit 38.4 % (37.0-53.0); Hemoglobin 12.2 g/dL (13.5-17.5); Mean Corpuscular HGB Conc 31.8 g/dL (31.5-36.5); Mean Corpuscular Volume 91 fL (80-100); Mean Platelet Volume 11.2 fL (9.1-12.4); Platelet Count 172 K/mm3 (150-400); RDW Coefficient Variation 13.9 % (11.7-14.2); RDW Standard Deviation 46.3 fL (35.1-46.3); Red Blood Cell Count 4.21 M/mm3 (4.30-5.90); White Blood Cell Count 25.35 K/mm3 (4.00-11.30)
[2019-09-20 05:50] LABS: Alanine Aminotransfer (ALT/SGP 16 U/L (12-78); Albumin, Blood 3.1 g/dL (3.4-5.0); Albumin/Globulin Ratio 0.8 (0.8-1.8); Alk Phos 79 U/L (50-136); Anion Gap 4 mmol/L (6-16); Aspartate Aminotrans (AST/SGOT 11 U/L (12-37); Bilirubin, Total 0.7 mg/dL (0.1-1.0); Blood Urea Nitrogen 15 mg/dL (8-24); Bun/Creatinine Ratio 16.9 (12.0-20.0); CO2, Blood 29 mmol/L (21-32); Calcium, Blood 8.8 mg/dL (8.5-10.1); Chloride, Blood 105 mmol/L (98-108); Creatinine, Blood 0.89 mg/dL (0.60-1.20); Globulin, Blood 3.9 g/dL (2.2-4.0); Glomerular Filtration Rate >60 (60-); Glucose, Blood 139 mg/dL (70-99); Sodium, Blood 138 mmol/L (136-145)
[2019-09-20 10:53] LABS: Influenza A Negative (NEGATIVE); Influenza B Negative (NEGATIVE)
[2019-09-20] MEDS ORDERED: ATOR40TA PO (13:08)
[2019-09-20] MEDS ORDERED: XARELTO15 MG PO (13:27)
--- NOTE | 2019-09-20 15:01 | NUR ---
PT ADMIT PT ADMITED FROM ER, TRANSPORTED BY [facility]. ADMIT HX DONE. PT HAD REDNESS AND CLOTS DRAINGING FROM SUPER PUBIC CATH SITE.
--- NOTE | 2019-09-20 16:59 | NUR ---
PT AXO TRANSFERED FROM ER. PT HAS BLEEDING AROUND CATH SITE, PT STATES THAT "SUPER PUBIC CATH WAS CHANGED YESTERDAY IN DR. GONZALEZ'S OFFICE". PT HAS GENERALIZED WEAKNESS, AMBULATED TO WITH FWW AND NURSE STANDBY. PT HAS AN ABRASION ON LEFT FLANK, BUT DENIES PAIN. PT HAS A DRESSING AROUND SUPER PUBIC CATH SITE. PT HAS A BED ALARM ON AND CALL LIGHT WITH IN REACH WILL COUNTINUE TO MONITOR AND REPORT TO ONCOMING NOC RN.
[2019-09-21 03:12] LABS: Vancomycin, Trough 13.3 ug/mL (5.0-10.0)
[2019-09-21 03:59] LABS: Adenovirus Not Detected (NOT DETECT); Bordetella pertussis Not Detected (NOT DETECT); Chlamydophila pneumoniae Not Detected (NOT DETECT); Coronavirus 229E Not Detected (NOT DETECT); Coronavirus HKU1 Not Detected (NOT DETECT); Coronavirus NL63 Not Detected (NOT DETECT); Coronavirus OC43 Not Detected (NOT DETECT); Human Metapneumovirus Not Detected (NOT DETECT); Human Rhinovirus/Enterovirus Not Detected (NOT DETECT); Influenza A Not Detected (NOT DETECT); Influenza A/2009-H1 Not Detected (NOT DETECT); Influenza A/H1 Not Detected (NOT DETECT); Influenza A/H3 Not Detected (NOT DETECT); Influenza B Not Detected (NOT DETECT); Mycoplasma pneumoniae Not Detected (NOT DETECT); Parainfluenza Virus 1 Not Detected (NOT DETECT); Parainfluenza Virus 2 Not Detected (NOT DETECT); Parainfluenza Virus 3 Not Detected (NOT DETECT); Parainfluenza Virus 4 Not Detected (NOT DETECT); Respiratory Syncytial Virus Not Detected (NOT DETECT)
--- NOTE | 2019-09-21 05:50 | NUR ---
SHIFT SUMMARY ADMITTED FOR SEPSIS. FULL CODE. CONTACT FOR MRSA IN URINE. TELEMETRY IS MONITORING: AFIB @ 110 BPM. RUNS HYPERTENSIVE AND TACHYCARDIC AT BASELINE. SUPRAPUBIC CATHETER REPLACED TWO DAYS AGO, MILD BLOOD OOZING FROM INSERTION SITE. AC CHEMSTICKS. PLAN IS FOR IV ANTIBIOTICS. HX: DM2, AFIB, CAD, APNEA (NONCOMPLIANT W/CPAP), HTN, BPH.
[2019-09-21 10:00] LABS: Hematocrit 37.2 % (37.0-53.0); Hemoglobin 11.9 g/dL (13.5-17.5); Mean Corpuscular HGB 28.9 pg (26.0-34.0); Mean Corpuscular Volume 90 fL (80-100); Mean Platelet Volume 11.2 fL (9.1-12.4); Platelet Count 162 K/mm3 (150-400); RDW Coefficient Variation 13.7 % (11.7-14.2); RDW Standard Deviation 45.3 fL (35.1-46.3); Red Blood Cell Count 4.12 M/mm3 (4.30-5.90); White Blood Cell Count 20.02 K/mm3 (4.00-11.30)
--- NOTE | 2019-09-21 18:11 | NUR ---
SHIFT SUMMARY PT AXO, PLEASANT AND COOPERATIVE WITH CARE. IV PATENT AND INFUSING PER EMAR. AT 1610 PT COMPLAINED OF WHEEZING AND "NOT FEELING GOOD" DR DAY NOTIFIED, BREATHING TREATMENT ORDERED AND LASIX GIVEN PER EMAR. VS STABLE THOUGH HR NOTED. SUPRAPUBIC CATH CHANGED THIS SHIFT BY SERENA COFFMAN RN FROM [facility]. BED IN LOW POSITION, CALL LIGHT WITHIN REACH.
--- NOTE | 2019-09-22 04:55 | NUR ---
SHIFT SUMMARY ADMITTED FOR SEPSIS - SUSPECTED CAUSE IS UTI FROM SUPRAPUBIC CATHETER. FULL CODE. SUPRAPUBIC CATHETER CHANGED 09/21/2019. PLAN IS IV ANTIBIOTICS. TELEMETRY IS MONITORING: AFIB @ 102 BPM. BP'S CONTINUE TO RUN HYPERTENSIVE SINCE ADMIT. RA, A&O X4, 1 ASSIST W/FWW, ADA DIET, LOW SLIDING SCALE HUMALOG, ACHS CHEMSTICKS. HX: DM2, AFIB, CAD, APNEA (NONCOMPLIANT W/CPAP), HTN, BPH. CONTACT PRECAUTIONS FOR MRSA IN URINE.
[2019-09-22 05:05] LABS: Hematocrit 37.9 % (37.0-53.0); Mean Corpuscular HGB 28.5 pg (26.0-34.0); Mean Corpuscular HGB Conc 31.7 g/dL (31.5-36.5); Mean Corpuscular Volume 90 fL (80-100); Mean Platelet Volume 11.5 fL (9.1-12.4); Platelet Count 186 K/mm3 (150-400); RDW Coefficient Variation 13.6 % (11.7-14.2); RDW Standard Deviation 44.6 fL (35.1-46.3); Red Blood Cell Count 4.21 M/mm3 (4.30-5.90); White Blood Cell Count 20.88 K/mm3 (4.00-11.30)
[2019-09-22 05:38] LABS: Anion Gap 6 mmol/L (6-16); Blood Urea Nitrogen 13 mg/dL (8-24); Bun/Creatinine Ratio 15.2 (12.0-20.0); CO2, Blood 26 mmol/L (21-32); Calcium, Blood 8.6 mg/dL (8.5-10.1); Chloride, Blood 108 mmol/L (98-108); Creatinine, Blood 0.86 mg/dL (0.60-1.20); Glomerular Filtration Rate >60 (60-); Glucose, Blood 112 mg/dL (70-99); Potassium, Blood 3.6 mmol/L (3.5-5.5); Sodium, Blood 140 mmol/L (136-145)
[2019-09-22 15:40] LABS: Vancomycin, Trough 17.2 ug/mL (5.0-10.0)
--- NOTE | 2019-09-22 18:01 | NUR ---
PT AOX4 AND COOPERATIVE OF CARE. PT DOING WELL RESTING IN BED. CLEANED SUPRAPUBIC AREA AND PUT NEW DRAIN SPONGE AROUND AREA. SKIN PINK AND CLEAN WITH BLOOD CLOT NOTED BY TUBING.URINE FLOWING WELL AT THIS TIME. PT CALLS APPROPRIATELY AND REPORTED NO PAIN. WILL CONTINUE TO MONITOR.
--- NOTE | 2019-09-23 03:34 | NUR ---
09/23/19 RN CLEANSED AND CHANGED SUPRA-PUBLIC CATH INSERTION SITE DRESSING ON ABDOMEN. SMALL AMOUNT OF OLD BLOOD.
[2019-09-23 05:27] LABS: BASOPHILS ABSOLUTE AUTO 0.05 K/mm3 (0.00-0.23); BASOPHILS PERCENT AUTO 0 % (0-2); EOSINOPHILS PERCENT AUTO 1 % (0-6); Hematocrit 37.3 % (37.0-53.0); Hemoglobin 11.9 g/dL (13.5-17.5); IMMATURE GRAN ABSOLUTE AUTO 0.05 K/mm3 (0.00-0.10); IMMATURE GRAN PERCENT AUTO 0 % (0-1); LYMPHOCYTES ABSOLUTE AUTO 11.69 K/mm3 (0.84-5.20); LYMPHOCYTES PERCENT AUTO 61 % (21-46); MONOCYTES ABSOLUTE AUTO 1.18 K/mm3 (0.16-1.47); MONOCYTES PERCENT AUTO 6 % (4-13); Mean Corpuscular HGB 28.5 pg (26.0-34.0); Mean Corpuscular HGB Conc 31.9 g/dL (31.5-36.5); Mean Corpuscular Volume 89 fL (80-100); Mean Platelet Volume 11.3 fL (9.1-12.4); NEUTROPHILS ABSOLUTE AUTO 6.04 K/mm3 (1.96-9.15); NEUTROPHILS PERCENT AUTO 31 % (41-73); Platelet Count 201 K/mm3 (150-400); RDW Coefficient Variation 13.6 % (11.7-14.2); RDW Standard Deviation 44.4 fL (35.1-46.3); Red Blood Cell Count 4.18 M/mm3 (4.30-5.90); White Blood Cell Count 19.21 K/mm3 (4.00-11.30)
[2019-09-23 05:53] LABS: Anion Gap 4 mmol/L (6-16); Blood Urea Nitrogen 16 mg/dL (8-24); Bun/Creatinine Ratio 18.5 (12.0-20.0); CO2, Blood 28 mmol/L (21-32); Calcium, Blood 8.5 mg/dL (8.5-10.1); Chloride, Blood 107 mmol/L (98-108); Creatinine, Blood 0.87 mg/dL (0.60-1.20); Glomerular Filtration Rate >60 (60-); Glucose, Blood 112 mg/dL (70-99); Potassium, Blood 3.5 mmol/L (3.5-5.5); Sodium, Blood 139 mmol/L (136-145)
--- NOTE | 2019-09-23 07:46 | NUR ---
09/23/19 0615 PT SLEPT ON AND OFF LAST NIGHT. C/O "EYES HURT". BP WAS UP AT THAT TIME. SEE MAR FOR BP AND PAIN MEDS GIVEN. TAKING ORAL INTAKE WELL. UNEVENTFUL NIGHT.
[2019-09-23] MEDS ORDERED: HUMALOG KW200 UNIT/1 (09:02)
[2019-09-23] MEDS ORDERED: ONDA4ODT MM (09:04)
[2019-09-23] MEDS ORDERED: ACET325 PO (09:04)
[2019-09-23] MEDS ORDERED: Florastor250 MG PO (09:04)
[2019-09-23] MEDS ORDERED: FLUC200 PO (09:05)
--- NOTE | 2019-09-23 15:43 | NUR ---
PT AOX4 AND COOPERATIVE OF CARE. PT DISCHARGED AND WAS TRANSPORTED HOME VIA [facility] WHEELCHAIR. NO DISTRESS NOTED PT ABLE TO AMBULATE WITH STANDBY ASSIST JUST TO MOVE IV OUT OF THE WAY. PT STATES HE WAS FEELING STRONGER ON HIS LEGS TODAY. ALL PAPERWORK REVIEWED AND EDUCATIONAL MATERIAL SENT WITH PT. [facility]. NO DISTRESS NOTED. SUPRAPUBIC DRAIN GAUZED CHANGED AND AREA CLEANED THIS AM. CLOT STILL INTACT AROUND TUBING NO INCREASE IN REDNESS NOTED.
== END 2019-09-23 15:39 | disposition home health service (06) | DRG 698 ==
LOC: ER 00:47 → ERHOLD 03:52 → MEDS 03:52 → ENPENDDIS 09-23 08:30 → MEDS 09-23 15:39
PROVIDERS: Emergency Medicine; Family Medicine; Internal Medicine; ADMIT Internal Medicine
DX: T83.518A Infection and inflammatory reaction due to other urinary catheter, initial encounter (principal); A41.02 Sepsis due to Methicillin resistant Staphylococcus aureus; N39.0 Urinary tract infection, site not specified; I48.91 Unspecified atrial fibrillation; I25.10 Atherosclerotic heart disease of native coronary artery without angina pectoris; I10 Essential (primary) hypertension; Z85.118 Personal history of other malignant neoplasm of bronchus and lung; E11.9 Type 2 diabetes mellitus without complications; G47.30 Sleep apnea, unspecified; N40.1 Benign prostatic hyperplasia with lower urinary tract symptoms; E66.01 Morbid (severe) obesity due to excess calories
CPT/HCPCS: 0099U; 36415; 71045; 80048; 80053; 80202; 81001; 82947; 84484; 85025; 85027; 87070; 87086; 87106; 87205; 87804; 93005; 93010; 94640; 94760; 96365; 96366; 96372-59; 96375; 99285-25; A9270; J0360; J1450; J1650; J1940; J1956; J3010; J3370; J7030; J7050

== ENCOUNTER 2019-10-01 21:14 | Emergency (ER) | payer OTHER, MEDICARE ==
[~2019-10-01] VITALS: Ht 185.4 cm; Wt 120.2 kg
[~2019-10-01 21:14] MED LIST changes: +ACET325 PO; +ATOR40TA PO; +FLUC200 PO; +Florastor250 MG PO; +HUMALOG KW200 UNIT/1; +ONDA4ODT MM; +XARELTO15 MG PO
== END 2019-10-01 22:34 | disposition left against medical advice (07) ==
LOC: ER 21:14
DX: R04.0 Epistaxis (principal); Z53.20 Procedure and treatment not carried out because of patient's decision for unspecified reasons
CPT/HCPCS: 99282

== ENCOUNTER 2019-10-08 11:53 | Emergency (ER) | payer OTHER, MEDICARE ==
[~2019-10-08] VITALS: Ht 182.9 cm; Wt 120.2 kg
[2019-10-08 13:50] LABS: Hematocrit 39.7 % (37.0-53.0); Hemoglobin 12.4 g/dL (13.5-17.5); Mean Corpuscular HGB 28.2 pg (26.0-34.0); Mean Corpuscular HGB Conc 31.2 g/dL (31.5-36.5); Mean Corpuscular Volume 90 fL (80-100); Mean Platelet Volume 10.8 fL (9.1-12.4); Platelet Count 307 K/mm3 (150-400); RDW Coefficient Variation 13.5 % (11.7-14.2); RDW Standard Deviation 44.5 fL (35.1-46.3); White Blood Cell Count 28.81 K/mm3 (4.00-11.30)
[2019-10-08 14:19] LABS: Alanine Aminotransfer (ALT/SGP 15 U/L (12-78); Albumin, Blood 3.2 g/dL (3.4-5.0); Albumin/Globulin Ratio 0.8 (0.8-1.8); Alk Phos 102 U/L (50-136); Anion Gap 6 mmol/L (6-16); Aspartate Aminotrans (AST/SGOT 14 U/L (12-37); Bilirubin, Total 0.5 mg/dL (0.1-1.0); Blood Urea Nitrogen 17 mg/dL (8-24); Bun/Creatinine Ratio 19.5 (12.0-20.0); CO2, Blood 27 mmol/L (21-32); Calcium, Blood 8.9 mg/dL (8.5-10.1); Chloride, Blood 107 mmol/L (98-108); Creatinine, Blood 0.87 mg/dL (0.60-1.20); Globulin, Blood 4.1 g/dL (2.2-4.0); Glomerular Filtration Rate >60 (60-); Glucose, Blood 111 mg/dL (70-99); Potassium, Blood 4.1 mmol/L (3.5-5.5); Sodium, Blood 140 mmol/L (136-145); Total Protein, Blood 7.3 g/dL (6.4-8.2)
[2019-10-08 16:05] LABS: BASOPHILS PERCENT MAN 0 % (0-2); EOSINOPHILS ABSOLUTE MAN 0.28 K/mm3 (0.00-0.68); EOSINOPHILS PERCENT MAN 1 % (0-6); LYMPHOCYTES ABSOLUTE MAN 18.72 K/mm3 (0.84-5.20); LYMPHOCYTES PERCENT MAN 65 % (21-46); MONOCYTES ABSOLUTE MAN 1.72 K/mm3 (0.16-1.47); MONOCYTES PERCENT MAN 6 % (4-13); NEUTROPHILS ABSOLUTE MAN 8.06 K/mm3 (1.96-9.15); SEG NEUTROPHILS PERCENT MAN 28 % (41-73); TOTAL CELLS COUNTED 100
== END 2019-10-08 16:35 | disposition home or self-care (01) ==
LOC: ER 11:53
PROVIDERS: Physician Assistant
DX: I48.91 Unspecified atrial fibrillation (principal); D72.829 Elevated white blood cell count, unspecified; I10 Essential (primary) hypertension; Z88.8 Allergy status to other drugs, medicaments and biological substances; Z88.1 Allergy status to other antibiotic agents; Z88.5 Allergy status to narcotic agent; Z88.2 Allergy status to sulfonamides; Z79.899 Other long term (current) drug therapy; Z79.82 Long term (current) use of aspirin; Z79.4 Long term (current) use of insulin; Z79.84 Long term (current) use of oral hypoglycemic drugs; Z87.891 Personal history of nicotine dependence
CPT/HCPCS: 36415; 80053; 85025; 93005; 93010; 99283-25

== ENCOUNTER 2019-10-15 04:13 | Emergency (ER) | payer OTHER, MEDICARE ==
[~2019-10-15] VITALS: Ht 182.9 cm; Wt 117.0 kg
[2019-10-15 06:21] LABS: Anion Gap 5 mmol/L (6-16); Blood Urea Nitrogen 15 mg/dL (8-24); Bun/Creatinine Ratio 16.4 (12.0-20.0); CO2, Blood 28 mmol/L (21-32); Calcium, Blood 8.6 mg/dL (8.5-10.1); Chloride, Blood 109 mmol/L (98-108); Creatinine, Blood 0.92 mg/dL (0.60-1.20); Glomerular Filtration Rate >60 (60-); Glucose, Blood 84 mg/dL (70-99); Potassium, Blood 3.8 mmol/L (3.5-5.5); Sodium, Blood 142 mmol/L (136-145)
== END 2019-10-15 06:40 | disposition home or self-care (01) ==
LOC: ER 04:13
PROVIDERS: Emergency Medicine
DX: T83.098A Other mechanical complication of other urinary catheter, initial encounter (principal); Z88.8 Allergy status to other drugs, medicaments and biological substances; Z88.2 Allergy status to sulfonamides; Z88.5 Allergy status to narcotic agent; Z79.899 Other long term (current) drug therapy; Z79.82 Long term (current) use of aspirin; Z79.51 Long term (current) use of inhaled steroids; Z79.4 Long term (current) use of insulin; I48.91 Unspecified atrial fibrillation; I25.10 Atherosclerotic heart disease of native coronary artery without angina pectoris; E11.9 Type 2 diabetes mellitus without complications; I10 Essential (primary) hypertension; E78.5 Hyperlipidemia, unspecified; N40.0 Benign prostatic hyperplasia without lower urinary tract symptoms; Z87.891 Personal history of nicotine dependence
CPT/HCPCS: 36415; 51705; 51798; 80048; 99283-25; C2627

== ENCOUNTER 2019-11-08 10:41 | Observation (INO) | payer OTHER, MEDICARE ==
[~2019-11-08] VITALS: Ht 177.8 cm; Wt 124.4 kg
[~2019-11-08 10:41] MED LIST changes: -HUMALOG KW200 UNIT/1; -LISI20 PO; +NOVOLOG100 UNIT/1 SC; +ZESTRIL40 M1 PO
[2019-11-08 11:13] LABS: Hematocrit 36.3 % (37.0-53.0); Hemoglobin 11.1 g/dL (13.5-17.5); Mean Corpuscular HGB 27.7 pg (26.0-34.0); Mean Corpuscular HGB Conc 30.6 g/dL (31.5-36.5); Mean Corpuscular Volume 91 fL (80-100); Mean Platelet Volume 11.7 fL (9.1-12.4); Platelet Count 239 K/mm3 (150-400); RDW Coefficient Variation 14.6 % (11.7-14.2); RDW Standard Deviation 47.5 fL (35.1-46.3); Red Blood Cell Count 4.01 M/mm3 (4.30-5.90); White Blood Cell Count 25.03 K/mm3 (4.00-11.30)
[2019-11-08 11:21] LABS: Albumin, Blood 3.2 g/dL (3.4-5.0); Albumin/Globulin Ratio 0.9 (0.8-1.8); Bilirubin, Total 0.4 mg/dL (0.1-1.0); Calcium, Blood 8.9 mg/dL (8.5-10.1); Creatinine, Blood 1.41 mg/dL (0.60-1.20); Globulin, Blood 3.7 g/dL (2.2-4.0); Potassium, Blood 4.3 mmol/L (3.5-5.5); Total Protein, Blood 6.9 g/dL (6.4-8.2)
[2019-11-08 11:52] LABS: BASOPHILS PERCENT MAN 0 % (0-2); EOSINOPHILS ABSOLUTE MAN 0.25 K/mm3 (0.00-0.68); EOSINOPHILS PERCENT MAN 1 % (0-6); LYMPHOCYTES ABSOLUTE MAN 15.51 K/mm3 (0.84-5.20); LYMPHOCYTES PERCENT MAN 62 % (21-46); MONOCYTES ABSOLUTE MAN 1.75 K/mm3 (0.16-1.47); MONOCYTES PERCENT MAN 7 % (4-13); SEG NEUTROPHILS PERCENT MAN 30 % (41-73); TOTAL CELLS COUNTED 100
[2019-11-08 12:23] LABS: Source, Urine Catheter
[2019-11-08 12:27] LABS: Blood, Urine 5+ (Neg); Glucose Qualitative, Urine Neg (Neg); Ketones, Urine 1+ (Neg); Leukocyte Esterase, Urine 2+ (Neg); Nitrite, Urine Neg (Neg); Protein, Urine 3+ (Neg); Specific Gravity, Urine 1.025 (1.003-1.022); Urobilinogen, Urine NORM (Normal)
[2019-11-08 12:35] LABS: Appearance, Urine Turbid (Clear); Bilirubin, Urine 1+ (Neg); Color, Urine Brown (P-Yellow)
[2019-11-08 12:39] LABS: Red Blood Cells, Urine TNTC /hpf (0-2)
[2019-11-08 12:40] LABS: Amorphous Mod (0-Heavy); Bacteria Many /hpf; Squamous Epithelial Cells Few /hpf (Few)
[2019-11-08] MEDS ORDERED: NITR100CA PO (16:10)
[2019-11-08 22:23] LABS: Adenovirus Not Detected (NOT DETECT); Bordetella pertussis Not Detected (NOT DETECT); Chlamydophila pneumoniae Not Detected (NOT DETECT); Coronavirus 229E Not Detected (NOT DETECT); Coronavirus HKU1 Not Detected (NOT DETECT); Coronavirus NL63 Not Detected (NOT DETECT); Coronavirus OC43 Not Detected (NOT DETECT); Human Metapneumovirus Not Detected (NOT DETECT); Human Rhinovirus/Enterovirus Not Detected (NOT DETECT); Influenza A/2009-H1 Not Detected (NOT DETECT); Influenza A/H1 Not Detected (NOT DETECT); Influenza A/H3 Not Detected (NOT DETECT); Influenza B Not Detected (NOT DETECT); Mycoplasma pneumoniae Not Detected (NOT DETECT); Parainfluenza Virus 1 Not Detected (NOT DETECT); Parainfluenza Virus 2 Not Detected (NOT DETECT); Parainfluenza Virus 3 Not Detected (NOT DETECT); Parainfluenza Virus 4 Not Detected (NOT DETECT); Respiratory Syncytial Virus Not Detected (NOT DETECT)
--- NOTE | 2019-11-09 03:01 | NUR ---
SHIFT SUMMARY ASSUMED CARE OF PT AT 1900. PT IS A/O X3, AND DENIES N/T IN EXTREMITIES. PT IS CONFUSED AT TIMES AND IS ANGRY BECUASE HE FEELS HE IS NOT GETTING THE PROPER CARE HERE BECAUSE HIS KIDNEYS ARE STILL NOT WORKING. THIS NURSE WAS NOT ABLE TO PROPERLY ASSESS THE PT BECAUSE HE WAS UPSET WHEN HIS DID NOT RECEIVE HIS INSULIN THIS PM DUE TO LOW BLOOD SUGARS. HOSPITALIST NOTIFIED OF LOW BLOOD SUGARS AND STATED TO USE NURSING JUDGEMENT ON WHETHER TO HOLD MEDICATION. PT DOES NOT UNDERSTAND REASONING FOR HOLDING MEDICATION EVEN AFTER SEVERAL ATTEMPTS. PT THEN BECAME ANGRY AND STATED "YOU DON'T KNOW WHAT YOU ARE DOING, AND NEITHER DOES THE DOCTOR". LATER IN THE NIGHT THE AIR CARGO SPECIALIST SUPERVISOR FOUND THE PATIENT TRYING TO GET OUT OF BED BECAUSE HE WANTED TO LEAVE, PT WAS ALSO HAVING VISUAL HALLUCINATION THAT THERE WERE CATS IN HIS ROOM AND HE WAS SEEING SHAPES AND COLORS, THE PT STATED THAT HE HAS SEEN THEM FOR THE PAST MONTH, PT IS AN UNRELIABLE HISTORIAN. PT REORIENTED BUT THEN THE PT GOT FUSTRATED AGAIN AND STATED TO THIS NURSE "YOU ARE STUPID AND DONT KNOW ANYTHING BECAUSE YOU HAVE TO TOLD TO SOMEONE HIGHER UP TO ASK FOR ANYTHING". THIS NURSE TOLD THE PT THIS WAS NOT APPROPIATE AND THIS NURSE WOULD COME BACK WHEN THE PT WANTED TO TALK MORE REASONABLY. PT HAS BEEN SLEEPING SINCE. CALL LIGHT IN REACH, BED IN LOWEST POSTION, WILL CONTINUE TO MONITOR UNTIL DAYSHIFT NURSE ARRIVES.
[2019-11-09 04:51] LABS: BASOPHILS ABSOLUTE AUTO 0.05 K/mm3 (0.00-0.23); BASOPHILS PERCENT AUTO 0 % (0-2); EOSINOPHILS ABSOLUTE AUTO 0.25 K/mm3 (0.00-0.68); EOSINOPHILS PERCENT AUTO 1 % (0-6); Hematocrit 34.8 % (37.0-53.0); Hemoglobin 10.8 g/dL (13.5-17.5); Mean Corpuscular HGB 28.1 pg (26.0-34.0); Mean Corpuscular Volume 90 fL (80-100); Mean Platelet Volume 11.8 fL (9.1-12.4); Platelet Count 213 K/mm3 (150-400); RDW Coefficient Variation 14.8 % (11.7-14.2); RDW Standard Deviation 47.9 fL (35.1-46.3); Red Blood Cell Count 3.85 M/mm3 (4.30-5.90); White Blood Cell Count 18.89 K/mm3 (4.00-11.30)
[2019-11-09 05:15] LABS: IMMATURE GRAN ABSOLUTE AUTO 0.05 K/mm3 (0.00-0.10); IMMATURE GRAN PERCENT AUTO 0 % (0-1); LYMPHOCYTES ABSOLUTE AUTO 11.11 K/mm3 (0.84-5.20); LYMPHOCYTES PERCENT AUTO 59 % (21-46); MONOCYTES ABSOLUTE AUTO 1.09 K/mm3 (0.16-1.47); MONOCYTES PERCENT AUTO 6 % (4-13); NEUTROPHILS ABSOLUTE AUTO 6.34 K/mm3 (1.96-9.15); NEUTROPHILS PERCENT AUTO 34 % (41-73)
[2019-11-09 05:17] LABS: Alanine Aminotransfer (ALT/SGP 12 U/L (12-78); Albumin, Blood 2.9 g/dL (3.4-5.0); Albumin/Globulin Ratio 0.9 (0.8-1.8); Alk Phos 88 U/L (50-136); Anion Gap 3 mmol/L (6-16); Aspartate Aminotrans (AST/SGOT 14 U/L (12-37); Bilirubin, Total 0.4 mg/dL (0.1-1.0); Blood Urea Nitrogen 26 mg/dL (8-24); Bun/Creatinine Ratio 26.2 (12.0-20.0); CO2, Blood 30 mmol/L (21-32); Calcium, Blood 8.7 mg/dL (8.5-10.1); Chloride, Blood 110 mmol/L (98-108); Creatinine, Blood 0.99 mg/dL (0.60-1.20); Globulin, Blood 3.4 g/dL (2.2-4.0); Glomerular Filtration Rate >60 (60-); Glucose, Blood 123 mg/dL (70-99); Potassium, Blood 3.9 mmol/L (3.5-5.5); Sodium, Blood 143 mmol/L (136-145); Total Protein, Blood 6.3 g/dL (6.4-8.2)
[2019-11-09 06:51] LABS: BASOPHILS PERCENT MAN 0 % (0-2); EOSINOPHILS ABSOLUTE MAN 0.37 K/mm3 (0.00-0.68); EOSINOPHILS PERCENT MAN 2 % (0-6); LYMPHOCYTES ABSOLUTE MAN 10.95 K/mm3 (0.84-5.20); LYMPHOCYTES PERCENT MAN 58 % (21-46); MONOCYTES ABSOLUTE MAN 0.37 K/mm3 (0.16-1.47); MONOCYTES PERCENT MAN 2 % (4-13); NEUTROPHILS ABSOLUTE MAN 4.91 K/mm3 (1.96-9.15); SEG NEUTROPHILS PERCENT MAN 26 % (41-73); TOTAL CELLS COUNTED 100
[2019-11-09 06:52] LABS: OTHER CELL PERCENT MAN 12 % (0-0)
--- NOTE | 2019-11-09 09:30 | NUR ---
PT REPORTS FEELING VERY ANXIOUS AND HAVING A HARD TIME BREATHING. LUNGS CLEAR AND VS STABLE. ENCOURAGE DEEP BREATHING. P.T. IN TO SEE PT AND PT REPORTED TO HIM THAT HE WANTED TO SEE HIS [place] MENTAL HEALTH COUNSELOR. SPOKE WITH MD AND ORDERS PLACED FOR PSYCH CONSULT PRIOR TO DISCHARGE. DOES SKIP AROUND IN THE CONVERSATION MAKING IT DIFFICULT TO FOLLOW. CALLED AT ONE POINT AND SAID HE COULD TAKE A CAB RIDE HOME. EXPLAINED TO PT HE IS STAYING FOR THE DAY AND DISCHARGING TOMORROW.
--- NOTE | 2019-11-09 19:30 | NUR ---
SHIFT SUMMARY PT HAS BEEN IN AND OUT OF ORIENTATION TODAY. APPEARED TO BE MORE COMFORTABLE AFTER TRAZODONE GIVEN THIS AFTERNOON. HAD CALLED THE [facility] AND SPOKE WITH SOMEONE HE IS FAMILIAR BY THE NAME OF PRESLEY. PRESLEY REPORTED HE IS DEFINITELY MORE CONFUSED THAN HIS BASELINE. REMINDED PT HE ISN'T GOING HOME TODAY AND POSSIBLY HE WILL BE ABLE TO GO TO [facility] AT DC TOMORROW. REPORTS HE DOESN'T REMEMBER ANYTHING FROM THIS MORNING. DURING SHIFT REPORT PT STATED HE WAS BEGINNING TO FEEL ANXIOUS AGAIN.
--- NOTE | 2019-11-10 04:24 | NUR ---
SHIFT SUMMARY ASSUMED CARE OF PT AT 1900. PT IS ALERT AND MORE ORIENTED THAN LAST NIGHT. HEART SOUNDS IRREGULAR, TELE SHOWS AFIB @ 90. LUNG SOUNDS CLEAR, PT DENIES CP/SOB AT THIS TIME. PT WAS SLIGHTLY ANXIOUS AT THE BEGINNING OF THE SHIFT BUT PT SLEPT T/O THE NIGHT AFTER RECEIVING NIGHTLY MEDICATIONS AND PRN ANXIETY MEDICATIONS. CATHETER DRAINING TO GRAVITY. CALL LIGHT IN REACH, BED IN LOWEST POSTION, WILL CONTINUE TO MONITOR UNTIL DAYSHIFT NURSE ARRIVES.
[2019-11-10 05:40] LABS: Hematocrit 36.3 % (37.0-53.0); Hemoglobin 11.2 g/dL (13.5-17.5); Mean Corpuscular HGB 27.6 pg (26.0-34.0); Mean Corpuscular HGB Conc 30.9 g/dL (31.5-36.5); Mean Corpuscular Volume 89 fL (80-100); Mean Platelet Volume 11.7 fL (9.1-12.4); Platelet Count 204 K/mm3 (150-400); RDW Coefficient Variation 14.6 % (11.7-14.2); RDW Standard Deviation 47.2 fL (35.1-46.3); Red Blood Cell Count 4.06 M/mm3 (4.30-5.90); White Blood Cell Count 18.62 K/mm3 (4.00-11.30)
[2019-11-10 06:09] LABS: Anion Gap 4 mmol/L (6-16); Blood Urea Nitrogen 17 mg/dL (8-24); Bun/Creatinine Ratio 18.9 (12.0-20.0); CO2, Blood 30 mmol/L (21-32); Calcium, Blood 9.2 mg/dL (8.5-10.1); Chloride, Blood 106 mmol/L (98-108); Glomerular Filtration Rate >60 (60-); Glucose, Blood 110 mg/dL (70-99); Potassium, Blood 3.5 mmol/L (3.5-5.5); Sodium, Blood 140 mmol/L (136-145)
[2019-11-10 06:16] LABS: BASOPHILS PERCENT MAN 0 % (0-2); EOSINOPHILS ABSOLUTE MAN 0.74 K/mm3 (0.00-0.68); EOSINOPHILS PERCENT MAN 4 % (0-6); LYMPHOCYTES ABSOLUTE MAN 13.22 K/mm3 (0.84-5.20); LYMPHOCYTES PERCENT MAN 71 % (21-46); MONOCYTES ABSOLUTE MAN 0.37 K/mm3 (0.16-1.47); MONOCYTES PERCENT MAN 2 % (4-13); NEUTROPHILS ABSOLUTE MAN 4.28 K/mm3 (1.96-9.15); SEG NEUTROPHILS PERCENT MAN 23 % (41-73); TOTAL CELLS COUNTED 100
[2019-11-10] MEDS ORDERED: TRAZ50 PO (14:02)
--- NOTE | 2019-11-10 16:30 | NUR ---
DISCHARGE INSTRUCTIONS COMPLETED AND DISCUSSED WITH PT EXPRESSING UNDERSTANDING. SCRIPT FAXED TO [facility]. SPOKE WITH PTS CAREGIVER ABOUT SURGERY ON November AND SHE, SHAR, REPORTS SHE IS PLANNING ON TAKING PT TO [facility] FOR SURGERY. TO [facility] VIA W/C.
== END 2019-11-10 16:41 | disposition home health service (06) ==
LOC: ER 10:41 → MEDS 10:42 → ERHOLD 10:42 → MEDS 10:43 → ERHOLD 15:33 → ER 15:33 → MEDS 15:33 → ERHOLD 18:35 → MEDS 18:35
PROVIDERS: Emergency Medicine; Nurse Practitioner Acute Care; ADMIT Internal Medicine
DX: G92 Toxic encephalopathy (principal); I71.4 Abdominal aortic aneurysm, without rupture; C91.10 Chronic lymphocytic leukemia of B-cell type not having achieved remission; N17.9 Acute kidney failure, unspecified; I48.20 Chronic atrial fibrillation, unspecified; I25.10 Atherosclerotic heart disease of native coronary artery without angina pectoris; E11.9 Type 2 diabetes mellitus without complications; Z66 Do not resuscitate; I11.0 Hypertensive heart disease with heart failure; I50.32 Chronic diastolic (congestive) heart failure; E86.0 Dehydration; E78.5 Hyperlipidemia, unspecified; F43.10 Post-traumatic stress disorder, unspecified; F41.9 Anxiety disorder, unspecified; G47.33 Obstructive sleep apnea (adult) (pediatric); N40.1 Benign prostatic hyperplasia with lower urinary tract symptoms; R33.8 Other retention of urine; K21.9 Gastro-esophageal reflux disease without esophagitis; E66.01 Morbid (severe) obesity due to excess calories; Z68.35 Body mass index [BMI] 35.0-35.9, adult; Z93.6 Other artificial openings of urinary tract status; Z88.1 Allergy status to other antibiotic agents; Z88.2 Allergy status to sulfonamides; Z88.5 Allergy status to narcotic agent; Z88.8 Allergy status to other drugs, medicaments and biological substances; Z79.01 Long term (current) use of anticoagulants; Z79.4 Long term (current) use of insulin; Z79.82 Long term (current) use of aspirin; Z79.899 Other long term (current) drug therapy; Z87.891 Personal history of nicotine dependence
CPT/HCPCS: 0099U; 36415; 71046; 74176; 80048; 80053; 81001; 82550; 82947; 83605; 83735; 83880; 84100; 85025; 87077; 87086; 87186; 93005; 93010; 96361; 96365; 96366; 97110; 97116; 97162; 97166; 97535; 99285-25; A9270-GY; J0696; J1630; J7030; J7120

== ENCOUNTER 2019-11-12 07:46 | Emergency (ER) | payer OTHER, MEDICARE ==
[~2019-11-12] VITALS: Ht 182.9 cm; Wt 118.8 kg
[~2019-11-12 07:46] MED LIST changes: +TRAZ50 PO
== END 2019-11-12 11:54 | disposition home or self-care (01) ==
LOC: ER 07:46
DX: F41.9 Anxiety disorder, unspecified (principal); I10 Essential (primary) hypertension; Z88.8 Allergy status to other drugs, medicaments and biological substances; Z88.2 Allergy status to sulfonamides; Z88.5 Allergy status to narcotic agent; Z88.1 Allergy status to other antibiotic agents; Z79.899 Other long term (current) drug therapy; Z79.82 Long term (current) use of aspirin; Z79.4 Long term (current) use of insulin; I48.91 Unspecified atrial fibrillation; E11.9 Type 2 diabetes mellitus without complications; I25.10 Atherosclerotic heart disease of native coronary artery without angina pectoris; G47.30 Sleep apnea, unspecified; E78.5 Hyperlipidemia, unspecified; Z87.891 Personal history of nicotine dependence
CPT/HCPCS: 82947; 93005; 93010; 99284-25

== ENCOUNTER 2019-11-13 01:18 | Observation (INO) | payer OTHER, MEDICARE ==
[~2019-11-13] VITALS: Ht 182.9 cm; Wt 124.8 kg
[2019-11-13 03:03] LABS: Alanine Aminotransfer (ALT/SGP 15 U/L (12-78); Albumin, Blood 3.2 g/dL (3.4-5.0); Albumin/Globulin Ratio 0.8 (0.8-1.8); Alk Phos 93 U/L (50-136); Anion Gap 6 mmol/L (6-16); Aspartate Aminotrans (AST/SGOT 16 U/L (12-37); Bilirubin, Total 0.4 mg/dL (0.1-1.0); Blood Urea Nitrogen 20 mg/dL (8-24); Bun/Creatinine Ratio 21.5 (12.0-20.0); CO2, Blood 28 mmol/L (21-32); Calcium, Blood 8.4 mg/dL (8.5-10.1); Chloride, Blood 107 mmol/L (98-108); Creatinine, Blood 0.93 mg/dL (0.60-1.20); Globulin, Blood 3.9 g/dL (2.2-4.0); Glomerular Filtration Rate >60 (60-); Glucose, Blood 119 mg/dL (70-99); Potassium, Blood 3.9 mmol/L (3.5-5.5); Sodium, Blood 141 mmol/L (136-145); Total Protein, Blood 7.1 g/dL (6.4-8.2)
[2019-11-13 03:05] LABS: BASOPHILS ABSOLUTE AUTO 0.08 K/mm3 (0.00-0.23); BASOPHILS PERCENT AUTO 0 % (0-2); EOSINOPHILS ABSOLUTE AUTO 0.27 K/mm3 (0.00-0.68); EOSINOPHILS PERCENT AUTO 1 % (0-6); Hematocrit 36.2 % (37.0-53.0); Hemoglobin 10.9 g/dL (13.5-17.5); Mean Corpuscular HGB 27.3 pg (26.0-34.0); Mean Corpuscular HGB Conc 30.1 g/dL (31.5-36.5); Mean Corpuscular Volume 91 fL (80-100); Mean Platelet Volume 11.6 fL (9.1-12.4); NRBC ABSOLUTE 0.02 K/mm3 (0.00-0.02); NRBC Auto 0.1 /100 WBC (0.0-0.2); Platelet Count 219 K/mm3 (150-400); RDW Coefficient Variation 14.6 % (11.7-14.2); RDW Standard Deviation 47.5 fL (35.1-46.3); White Blood Cell Count 26.09 K/mm3 (4.00-11.30)
[2019-11-13 03:08] LABS: IMMATURE GRAN PERCENT AUTO 0 % (0-1); LYMPHOCYTES ABSOLUTE AUTO 16.26 K/mm3 (0.84-5.20); LYMPHOCYTES PERCENT AUTO 62 % (21-46); MONOCYTES ABSOLUTE AUTO 2.05 K/mm3 (0.16-1.47); MONOCYTES PERCENT AUTO 8 % (4-13); NEUTROPHILS ABSOLUTE AUTO 7.33 K/mm3 (1.96-9.15); NEUTROPHILS PERCENT AUTO 28 % (41-73)
[2019-11-13 07:05] LABS: International Normalized Ratio 1.44; Prothrombin Time Results 15.1 Sec (9.7-11.5)
--- NOTE | 2019-11-13 11:02 | NUR ---
AM NOTE... PT IS A/O, PLEASANT AND COOPERATIVE. HE DENIES DISTRESS OR PAIN CURRENTLY. PT HEMOPTYSIS HAS STOPPED AND NONE OPSERVED WHILE ON THE FLOOR FROM ED. PT HAS O2 AT 2L AND MILD EXERTIONAL SOB. PT HAS NS AT 75 ML, IS MILDLY CONSTIPATED WITH LARGE FORMED STOOL. IV SITE RAC.
--- NOTE | 2019-11-13 14:20 | NUR ---
PT IS NAPPING/SLEEPING AND IS EASILY AROUSED AND A/O. UO CONT PER SUPRAPUBIC DRAIN AND NS AT 75. O2 UNCHANGED. 02 REMAINS 2L. NO FURTHER HYMOPTYSIS.
--- NOTE | 2019-11-13 16:12 | NUR ---
1600 PT RETURNED TO BED AND SIPPING H20, THEN BEGAN HAVING HYMOPTISIS WITH OLD CLOTS NOTED. POSSIBLE SOME NEW BLEEDING BUT WILL EVALUATE. PT IS ABLE TO COUGH UP WELL AND CLEAR AIRWAY. VSS, SATS NOTED.
--- NOTE | 2019-11-13 18:10 | NUR ---
PT IS SETTING UP AT SIDE OF BED TO EAT. HEMOPTIYSIS HAS STOPPED PT HAS COUGHED UP SOME CLEAR SPUTUM AFTER EARLIER EPISODES CHARTED. PAS ON. PT IS TAKING PO WELL. VSS. URINE OUT PER SUPRAPUBIC CATH NOTED AND YELLOW TO DARK YELLOW. NS REMAINS 75.
[2019-11-14 04:46] LABS: Hematocrit 34.8 % (37.0-53.0); Hemoglobin 10.7 g/dL (13.5-17.5); Mean Corpuscular HGB 27.6 pg (26.0-34.0); Mean Corpuscular HGB Conc 30.7 g/dL (31.5-36.5); Mean Corpuscular Volume 90 fL (80-100); Mean Platelet Volume 11.2 fL (9.1-12.4); Platelet Count 208 K/mm3 (150-400); RDW Coefficient Variation 14.6 % (11.7-14.2); RDW Standard Deviation 47.5 fL (35.1-46.3); Red Blood Cell Count 3.88 M/mm3 (4.30-5.90); White Blood Cell Count 20.49 K/mm3 (4.00-11.30)
[2019-11-14 05:11] LABS: Alanine Aminotransfer (ALT/SGP 14 U/L (12-78); Albumin, Blood 3.1 g/dL (3.4-5.0); Albumin/Globulin Ratio 0.8 (0.8-1.8); Alk Phos 89 U/L (50-136); Anion Gap 3 mmol/L (6-16); Aspartate Aminotrans (AST/SGOT 13 U/L (12-37); Bilirubin, Total 0.8 mg/dL (0.1-1.0); Blood Urea Nitrogen 13 mg/dL (8-24); CO2, Blood 30 mmol/L (21-32); Calcium, Blood 8.8 mg/dL (8.5-10.1); Chloride, Blood 108 mmol/L (98-108); Creatinine, Blood 0.93 mg/dL (0.60-1.20); Globulin, Blood 3.8 g/dL (2.2-4.0); Glomerular Filtration Rate >60 (60-); Glucose, Blood 72 mg/dL (70-99); Potassium, Blood 3.8 mmol/L (3.5-5.5); Sodium, Blood 141 mmol/L (136-145); Total Protein, Blood 6.9 g/dL (6.4-8.2)
--- NOTE | 2019-11-14 06:17 | NUR ---
END OF SHIFT SUMMARY NO ACUTE CHANGES THIS SHIFT. VSS. NO NEW BLOD SPUTUM HAS BEEN XCRETED. LUNG SOUNDS DIM AND SOMEWHAT WHEEZY AT TIMES. PT HAS EXPERIENCED ANXIETY AT TIMES REGARDING BEING SICK, RN TO ROOM TO COMFORT PT AND RELIEVE FEARS. P IS VERY COOEPRATIVE AND NPLEASANT. SUPRAPUBIC CATH IN PLACE, PATENT. PT HAS TO BE REMINDED TO USE CALL LIGHT HE CALLS OUT TO STAFF OFTEN. OTHERWIS HAS BEEN RESTING IN ROM T/O THE SHIFT.
--- NOTE | 2019-11-14 08:30 | NUR ---
ASSUMPTION OF CARE RECEIVED PT AAOX4 RESTING COMFORTABLY IN BED. NO S/S OF DISTRESS. VSS. PT DENIES ANY C/O CHEST PAIN/PRESSURE OR SOB. NO EPISODES OF HEMOPTYSIS SINCE YESTERDAY. PLAN TO CONTINUE W/ CURRENT MEDS & IV ABX FOR PNA. CONTACT ISOLATION PRECAUTIONS IN PLACE FOR MRSA URINE. BED LOCKED & IN LOWEST POSITION, CALL ANDREWS W/ IN REACH. WILL CONTINUE TO MONITOR.
--- NOTE | 2019-11-14 11:32 | NUR ---
Spiritual care visit conducted. Patient is sitting up in bed but resting. Patient immediately shares about his medical issues/history, his family, his 6 yrs in the [place] and his friend/family support system. Patient tells me that he is scheduled for surgery at [facility] tomorrow at 7am and that he is nervous about the transportation issues and the surgery itself. I listen empathically, normalize patient's experience, explore patient's belief system and provide companionship and prayer. Patient responds well and shows signs of reduced stress. I will continue to remain available to patient and family.
[2019-11-14] MEDS ORDERED: GUAI600T33 PO (15:51)
[2019-11-14] MEDS ORDERED: DEXT30SU PO (15:51)
[2019-11-14] MEDS ORDERED: AZIT500 PO (15:52)
--- NOTE | 2019-11-14 16:15 | NUR ---
DISCHARGE SUMMARY NO ACUTE CHANGES THROUGHOUT SHIFT. VSS. PT DENIED ANY C/O CHEST PAIN/PRESSURE OR SOB. NO EPISODES OF HEMOPTYSIS THIS SHIFT. DISCHARGE EDUCATION COMPLETED W/ PT. DISCUSSED MED REC & FOLLOW UP INSTRUCTIONS. PT VERBALIZED UNDERSTANDING & STATED HE WOULD FOLLOW UP INSTRUCTED & TAKE MEDS PRESCRIBED. PT TO PICKUP NEW PRESCRIPTIONS AT HIS HOME PHARMACY; RX CALLED IN TO [facility] IN [place]. IV REMOVED. PT DISCHARGED HOME. TRANSPORTED OFF UNIT VIA WHEELCHAIR IN STABLE CONDITION W/ SUPRAPUBIC CATH IN PLACE. ALL PAPERWORK & BELONGINGS SENT W/ PT.
== END 2019-11-14 16:18 | disposition home or self-care (01) ==
LOC: ER 01:18 → PCU 01:19
PROVIDERS: Emergency Medicine; ADMIT Internal Medicine
DX: J18.9 Pneumonia, unspecified organism (principal); I71.4 Abdominal aortic aneurysm, without rupture; N17.9 Acute kidney failure, unspecified; I48.91 Unspecified atrial fibrillation; I25.10 Atherosclerotic heart disease of native coronary artery without angina pectoris; E11.9 Type 2 diabetes mellitus without complications; D72.829 Elevated white blood cell count, unspecified; N40.0 Benign prostatic hyperplasia without lower urinary tract symptoms; Z96.0 Presence of urogenital implants; Z88.2 Allergy status to sulfonamides; Z88.5 Allergy status to narcotic agent; J43.9 Emphysema, unspecified; Z88.1 Allergy status to other antibiotic agents; Z88.8 Allergy status to other drugs, medicaments and biological substances; Z79.4 Long term (current) use of insulin; Z79.899 Other long term (current) drug therapy; E66.9 Obesity, unspecified; I11.0 Hypertensive heart disease with heart failure; I50.32 Chronic diastolic (congestive) heart failure; Z79.82 Long term (current) use of aspirin; Z79.84 Long term (current) use of oral hypoglycemic drugs; Z79.01 Long term (current) use of anticoagulants; Z87.891 Personal history of nicotine dependence; Z68.35 Body mass index [BMI] 35.0-35.9, adult; J90 Pleural effusion, not elsewhere classified
CPT/HCPCS: 36415; 71045; 71260; 80053; 82947; 83605; 85025; 85027; 85610; 86850; 86900; 86901; 93005; 93010; 94640; 94760; A9270-GY; J0456; J0696; J7030; J7050; Q9967

== ENCOUNTER 2020-01-25 21:00 | Emergency (ER) | payer OTHER, MEDICARE ==
[~2020-01-25] VITALS: Ht 185.4 cm; Wt 118.8 kg
[~2020-01-25 21:00] MED LIST changes: +AZIT500 PO; +DEXT30SU PO; +GUAI600T33 PO
[2020-01-25 21:37] LABS: BASOPHILS ABSOLUTE AUTO 0.07 K/mm3 (0.00-0.23); BASOPHILS PERCENT AUTO 0 % (0-2); EOSINOPHILS ABSOLUTE AUTO 0.28 K/mm3 (0.00-0.68); EOSINOPHILS PERCENT AUTO 1 % (0-6); Hematocrit 43.6 % (37.0-53.0); Hemoglobin 13.4 g/dL (13.5-17.5); IMMATURE GRAN ABSOLUTE AUTO 0.08 K/mm3 (0.00-0.10); IMMATURE GRAN PERCENT AUTO 0 % (0-1); LYMPHOCYTES ABSOLUTE AUTO 13.84 K/mm3 (0.84-5.20); LYMPHOCYTES PERCENT AUTO 56 % (21-46); MONOCYTES ABSOLUTE AUTO 2.24 K/mm3 (0.16-1.47); MONOCYTES PERCENT AUTO 9 % (4-13); Mean Corpuscular HGB Conc 30.7 g/dL (31.5-36.5); Mean Corpuscular Volume 85 fL (80-100); NEUTROPHILS ABSOLUTE AUTO 8.15 K/mm3 (1.96-9.15); NEUTROPHILS PERCENT AUTO 33 % (41-73); Platelet Count 217 K/mm3 (150-400); RDW Coefficient Variation 14.6 % (11.7-14.2); RDW Standard Deviation 45.6 fL (35.1-46.3); Red Blood Cell Count 5.16 M/mm3 (4.30-5.90); White Blood Cell Count 24.66 K/mm3 (4.00-11.30)
[2020-01-25 21:55] LABS: BASOPHILS PERCENT MAN 0 % (0-2); EOSINOPHILS PERCENT MAN 0 % (0-6); LYMPHOCYTES ABSOLUTE MAN 11.83 K/mm3 (0.84-5.20); LYMPHOCYTES PERCENT MAN 48 % (21-46); MONOCYTES ABSOLUTE MAN 0.49 K/mm3 (0.16-1.47); MONOCYTES PERCENT MAN 2 % (4-13); NEUTROPHILS ABSOLUTE MAN 8.87 K/mm3 (1.96-9.15); OTHER CELL PERCENT MAN 14 % (0-0); SEG NEUTROPHILS PERCENT MAN 36 % (41-73); TOTAL CELLS COUNTED 100
[2020-01-25 21:59] LABS: Alanine Aminotransfer (ALT/SGP 14 U/L (12-78); Albumin, Blood 3.5 g/dL (3.4-5.0); Albumin/Globulin Ratio 0.8 (0.8-1.8); Alk Phos 121 U/L (50-136); Anion Gap 8 mmol/L (6-16); Aspartate Aminotrans (AST/SGOT 14 U/L (12-37); Bilirubin, Total 0.2 mg/dL (0.1-1.0); Blood Urea Nitrogen 17 mg/dL (8-24); Bun/Creatinine Ratio 16.7 (12.0-20.0); CO2, Blood 26 mmol/L (21-32); Calcium, Blood 8.7 mg/dL (8.5-10.1); Chloride, Blood 104 mmol/L (98-108); Creatinine, Blood 1.02 mg/dL (0.60-1.20); Globulin, Blood 4.4 g/dL (2.2-4.0); Glomerular Filtration Rate >60 (60-); Glucose, Blood 162 mg/dL (70-99); Potassium, Blood 3.8 mmol/L (3.5-5.5); Sodium, Blood 138 mmol/L (136-145); Total Protein, Blood 7.9 g/dL (6.4-8.2); Troponin I <0.015 ng/mL (0.000-0.040)
[2020-01-25] MEDS ORDERED: [UNRECOGNIZED DRUG - OTHER] PO (22:22)
[2020-01-25 22:23] LABS: Source, Urine Catheter
[2020-01-25] MEDS ORDERED: LANOXIN125 MCG PO (22:23)
[2020-01-25 22:25] LABS: Appearance, Urine Turbid (Clear); Bilirubin, Urine Neg (Neg); Blood, Urine 5+ (Neg); Color, Urine Red (P-Yellow); Glucose Qualitative, Urine Neg (Neg); Ketones, Urine Neg (Neg); Leukocyte Esterase, Urine 2+ (Neg); Nitrite, Urine Neg (Neg); Protein, Urine 3+ (Neg); Urobilinogen, Urine NORM (Normal)
[2020-01-25 22:31] LABS: Bacteria Mod /hpf; Red Blood Cells, Urine TNTC /hpf (0-2); Squamous Epithelial Cells Not Seen /hpf (Few)
[2020-01-25] MEDS ORDERED: Cipro500 MG PO (23:53)
== END 2020-01-26 01:35 | disposition home or self-care (01) ==
LOC: ER 21:00
PROVIDERS: Physician Assistant
DX: N39.0 Urinary tract infection, site not specified (principal); R31.9 Hematuria, unspecified; Z88.5 Allergy status to narcotic agent; Z88.2 Allergy status to sulfonamides; Z88.8 Allergy status to other drugs, medicaments and biological substances; Z79.82 Long term (current) use of aspirin; Z79.899 Other long term (current) drug therapy; Z79.4 Long term (current) use of insulin; Z79.2 Long term (current) use of antibiotics; Z87.891 Personal history of nicotine dependence
CPT/HCPCS: 36415; 51700; 71046; 80053; 81001; 84484; 85025; 93005; 93010; 96365-59; 99284-25; J0744

== ENCOUNTER 2020-07-18 14:23 | Emergency (ER) | payer OTHER, MEDICARE ==
[~2020-07-18] VITALS: Ht 162.6 cm; Wt 112.0 kg
[~2020-07-18 14:23] MED LIST changes: +CEPH500 PO; +Cipro500 MG PO; +DOXY100 PO; +Desowen60 GM TOP; +HYDR1TAB94 PO; +Ketoconazole120 ML TOP; +METF500C PO; +NEOPOLBACB TOP; +NOVOLOG FL100 UNIT/3 SC; +OMEP20ER PO; +Prednisone20 MG PO; +Prinivil10 MG PO; +Vitamin D2000 UNIT PO; +[UNRECOGNIZED DRUG - OTHER] PO
[2020-07-18 15:12] LABS: Hematocrit 41.5 % (37.0-53.0); Hemoglobin 13.1 g/dL (13.5-17.5); Mean Corpuscular HGB 27.6 pg (26.0-34.0); Mean Corpuscular HGB Conc 31.6 g/dL (31.5-36.5); Mean Corpuscular Volume 88 fL (80-100); Mean Platelet Volume 11.3 fL (9.1-12.4); Platelet Count 188 K/mm3 (150-400); RDW Coefficient Variation 14.3 % (11.7-14.2); RDW Standard Deviation 45.7 fL (35.1-46.3); Red Blood Cell Count 4.74 M/mm3 (4.30-5.90); White Blood Cell Count 40.65 K/mm3 (4.00-11.30)
[2020-07-18 15:43] LABS: Anion Gap 4 mmol/L (6-16); Blood Urea Nitrogen 18 mg/dL (8-24); Bun/Creatinine Ratio 16.8 (12.0-20.0); CO2, Blood 30 mmol/L (21-32); Calcium, Blood 9.4 mg/dL (8.5-10.1); Chloride, Blood 110 mmol/L (98-108); Creatinine, Blood 1.07 mg/dL (0.60-1.20); Glomerular Filtration Rate >60 (60-); Glucose, Blood 185 mg/dL (70-99); Potassium, Blood 4.6 mmol/L (3.5-5.5); Sodium, Blood 144 mmol/L (136-145); Troponin I <0.015 ng/mL (0.000-0.040)
[2020-07-18 16:15] LABS: BASOPHILS PERCENT MAN 0 % (0-2); EOSINOPHILS ABSOLUTE MAN 1.21 K/mm3 (0.00-0.68); EOSINOPHILS PERCENT MAN 3 % (0-6); LYMPHOCYTES ABSOLUTE MAN 30.89 K/mm3 (0.84-5.20); LYMPHOCYTES PERCENT MAN 76 % (21-46); MONOCYTES ABSOLUTE MAN 0.81 K/mm3 (0.16-1.47); MONOCYTES PERCENT MAN 2 % (4-13); NEUTROPHILS ABSOLUTE MAN 7.72 K/mm3 (1.96-9.15); SEG NEUTROPHILS PERCENT MAN 19 % (41-73); TOTAL CELLS COUNTED 100
[2020-07-18 17:50] LABS: Albumin, Blood 3.5 g/dL (3.4-5.0); Albumin/Globulin Ratio 0.9 (0.8-1.8); Bilirubin, Direct 0.1 mg/dL (0.0-0.3); Bilirubin, Indirect 0.5 mg/dL (0.1-0.7); Bilirubin, Total 0.6 mg/dL (0.1-1.0); Globulin, Blood 3.8 g/dL (2.2-4.0); Total Protein, Blood 7.3 g/dL (6.4-8.2)
== END 2020-07-18 19:41 | disposition home or self-care (01) ==
LOC: ER 14:23
PROVIDERS: Physician Assistant
DX: R07.9 Chest pain, unspecified (principal); Z79.4 Long term (current) use of insulin; Z79.01 Long term (current) use of anticoagulants; Z79.899 Other long term (current) drug therapy
CPT/HCPCS: 36415; 51102; 71046; 74019; 80048; 80076; 84484; 85025; 93005; 93010; 99285-25

== ENCOUNTER 2020-08-14 16:37 | Observation (INO) | payer OTHER, MEDICARE ==
[~2020-08-14] VITALS: Ht 185.4 cm; Wt 105.0 kg
[2020-08-14 17:54] LABS: Source, Urine Catheter
[2020-08-14 17:56] LABS: Hematocrit 40.2 % (37.0-53.0); Hemoglobin 12.5 g/dL (13.5-17.5); Mean Corpuscular HGB 27.5 pg (26.0-34.0); Mean Corpuscular HGB Conc 31.1 g/dL (31.5-36.5); Mean Corpuscular Volume 89 fL (80-100); Mean Platelet Volume 11.2 fL (9.1-12.4); NRBC ABSOLUTE 0.03 K/mm3 (0.00-0.02); NRBC Auto 0.1 /100 WBC (0.0-0.2); Platelet Count 168 K/mm3 (150-400); RDW Coefficient Variation 14.7 % (11.7-14.2); RDW Standard Deviation 47.8 fL (35.1-46.3); Red Blood Cell Count 4.54 M/mm3 (4.30-5.90); White Blood Cell Count 48.27 K/mm3 (4.00-11.30)
[2020-08-14 18:02] LABS: Appearance, Urine Hazy (Clear); Blood, Urine 2+ (Neg); Color, Urine Amber (P-Yellow); Glucose Qualitative, Urine Neg (Neg); Ketones, Urine 1+ (Neg); Leukocyte Esterase, Urine 2+ (Neg); Nitrite, Urine Pos (Neg); Protein, Urine 4+ (Neg); Specific Gravity, Urine 1.025 (1.003-1.022); Urobilinogen, Urine 1+ (Normal)
[2020-08-14 18:17] LABS: Alanine Aminotransfer (ALT/SGP 14 U/L (12-78); Albumin, Blood 3.3 g/dL (3.4-5.0); Albumin/Globulin Ratio 0.9 (0.8-1.8); Alk Phos 116 U/L (50-136); Anion Gap 9 mmol/L (6-16); Aspartate Aminotrans (AST/SGOT 11 U/L (12-37); Bilirubin, Total 0.4 mg/dL (0.1-1.0); Blood Urea Nitrogen 19 mg/dL (8-24); Bun/Creatinine Ratio 17.3 (12.0-20.0); CO2, Blood 25 mmol/L (21-32); Calcium, Blood 8.9 mg/dL (8.5-10.1); Chloride, Blood 106 mmol/L (98-108); Globulin, Blood 3.6 g/dL (2.2-4.0); Glomerular Filtration Rate >60 (60-); Glucose, Blood 176 mg/dL (70-99); Potassium, Blood 3.6 mmol/L (3.5-5.5); Sodium, Blood 140 mmol/L (136-145); Total Protein, Blood 6.9 g/dL (6.4-8.2)
[2020-08-14 18:25] LABS: Bilirubin, Urine 2+ (Neg)
[2020-08-14 18:27] LABS: Bacteria Few /hpf; Red Blood Cells, Urine 0-2 /hpf (0-2); Squamous Epithelial Cells Not Seen /hpf (Few)
[2020-08-14 19:17] LABS: BASOPHILS PERCENT MAN 0 % (0-2); EOSINOPHILS PERCENT MAN 0 % (0-6); LYMPHOCYTES ABSOLUTE MAN 36.68 K/mm3 (0.84-5.20); LYMPHOCYTES PERCENT MAN 76 % (21-46); MONOCYTES ABSOLUTE MAN 0.48 K/mm3 (0.16-1.47); MONOCYTES PERCENT MAN 1 % (4-13); SEG NEUTROPHILS PERCENT MAN 23 % (41-73); TOTAL CELLS COUNTED 100
[2020-08-14 21:20] LABS: Influenza A, PCR Negative (NEGATIVE); Influenza B, PCR Negative (NEGATIVE); Resp Syncytial Virus, PCR Negative (NEGATIVE); SARS-Cov-2 (COVID-19) PCR, MMC Negative (NEGATIVE)
--- NOTE | 2020-08-15 00:30 | NUR ---
REPORT RECEIVED FROM SUSAN OBREGON. PT TRANSPORTED TO MEDICAL FLOOR VIA GURNEY, TRANSFERRED TO BED. NO S/S ACUTE DISTRESS NOTED. DENIES SOB, DYSPNEA. VS OBTAINED, ORIENTED TO ROOM AND UNIT. DENIES N/V, PAIN AT THIS TIME. CALL LIGHT, POSSESSIONS IN REACH, BED IN LOW POSITION WITH ALARMS ON. TM.
[2020-08-15 01:36] LABS: BASOPHILS ABSOLUTE AUTO 0.07 K/mm3 (0.00-0.23); BASOPHILS PERCENT AUTO 0 % (0-2); EOSINOPHILS ABSOLUTE AUTO 0.14 K/mm3 (0.00-0.68); EOSINOPHILS PERCENT AUTO 0 % (0-6); Hematocrit 37.7 % (37.0-53.0); Hemoglobin 11.7 g/dL (13.5-17.5); IMMATURE GRAN PERCENT AUTO 0 % (0-1); Mean Corpuscular HGB 27.5 pg (26.0-34.0); Mean Corpuscular Volume 89 fL (80-100); Mean Platelet Volume 11.1 fL (9.1-12.4); NEUTROPHILS ABSOLUTE AUTO 6.75 K/mm3 (1.96-9.15); NEUTROPHILS PERCENT AUTO 19 % (41-73); Platelet Count 159 K/mm3 (150-400); RDW Coefficient Variation 14.8 % (11.7-14.2); Red Blood Cell Count 4.26 M/mm3 (4.30-5.90)
[2020-08-15 01:37] LABS: LYMPHOCYTES ABSOLUTE AUTO 26.53 K/mm3 (0.84-5.20); LYMPHOCYTES PERCENT AUTO 75 % (21-46); MONOCYTES ABSOLUTE AUTO 1.71 K/mm3 (0.16-1.47); MONOCYTES PERCENT AUTO 5 % (4-13)
[2020-08-15 01:51] LABS: Anion Gap 4 mmol/L (6-16); Blood Urea Nitrogen 18 mg/dL (8-24); CO2, Blood 31 mmol/L (21-32); Calcium, Blood 8.7 mg/dL (8.5-10.1); Chloride, Blood 109 mmol/L (98-108); Glomerular Filtration Rate >60 (60-); Glucose, Blood 154 mg/dL (70-99); Sodium, Blood 144 mmol/L (136-145)
--- NOTE | 2020-08-15 02:00 | NUR ---
CLARIFIED PT'S IVF ORDERS WITH DR. DAY. NEW ORDERS RECEIVED. CONTINUE TO MONITOR.
[2020-08-15] MEDS ORDERED: AMLO5 PO (05:39)
[2020-08-15] MEDS ORDERED: NEOPOLBACB TOP (05:40)
[2020-08-15] MEDS ORDERED: CYCL10 PO (05:41)
[2020-08-15] MEDS ORDERED: Desowen60 GM TOP (05:42)
[2020-08-15] MEDS ORDERED: HYDROCODONE-AC1 EA10 PO (05:44)
[2020-08-15] MEDS ORDERED: LIDO700A20 TOP (05:46)
[2020-08-15] MEDS ORDERED: TRIA15CR3 TOP (05:48)
[2020-08-15] MEDS ORDERED: ZINC OXIDE57 GM TOP (05:49)
--- NOTE | 2020-08-15 07:46 | NUR ---
SHIFT SUMMARY PT RESTING, NO S/S ACUTE DISTRESS NOTED, RESPS E/U. DENIES SOB, O2 SATS STABLE ON RA. VS REVIEWED, WNL. NO BM'S THIS SHIFT, AWAITING STOOL SAMPLE. S/P CATH PATENT AND DRAINING KENZIE YELLOW URINE, TUBING FREE OF KINKS. PT TOLERATED ADA DIET WELL, NO EPISODES OF EMESIS, DENIES N/V/D AT THIS TIME. DENIES NEEDS. CALL LIGHT, POSSESSIONS IN REACH, BED IN LOW POSITION WITH ALARMS ON. REPORT GIVEN TO [facility].
--- NOTE | 2020-08-15 18:35 | NUR ---
SHIFT SUMMARY PT IS AO TO SELF, PERSON, AND PLACE. PT EXHIBITS ALTERED MENTAL STATUS WITH HALLUCINATIONS AT TIMES. PHYSICIAN AWARE OF PT'S MENTAL STATE PER AM ROUNDING. PT DENIES PAIN, N/V, SOB. PT HAS NOT ATTEMPTED TO AMBULATE MUCH THIS SHIFT. GI PANEL UNABLE TO BE OBTAINED DUE TO PT HAVING NO BM'S THIS SHIFT. PT HAD GOOD APPETITE THIS SHIFT. PT IS IN BED, CALL LIGHT IN REACH, BED IN LOW POSITION.
--- NOTE | 2020-08-15 20:52 | NUR ---
75 Y/O MALE RESTING COMFORTABLY; ALERT AND ORIENTED X 2, ABLE TO FOLLOW SIMPLE VERBAL COMMANDS; THIS NURSE APPLIED DRAIN SPONGE TO SUPRAPUBIC CATHETER INSERTION SITE (SITE SLIGHT RED AT INSERTION SITE WITH BAG SECURED LEFT THIGH); BED ALARM APPLIED FOR SAFETY.
--- NOTE | 2020-08-16 04:26 | NUR ---
SHIFT SUMMARY: 75 Y/O MALE RESTED COMFORTABLY ALL SHIFT; DENIES PAIN OR NAUSEA; SUPRAPUBIC CATHETER INSERTION SITE SLIGTHLY RED WITH CLEAR YELLOW FLUID NOTED; NO CBG; ALERT AND ORIENTED X 2, ABLE TO FOLLOW SIMPLE VERBAL COMMANDS; BED ALARM APPLIED FOR SAFETY, BED LOW POSITION WITH CALL LIGHT AT SIDE.
[2020-08-16 05:03] LABS: Hematocrit 36.3 % (37.0-53.0); Hemoglobin 11.2 g/dL (13.5-17.5); Mean Corpuscular HGB 27.3 pg (26.0-34.0); Mean Corpuscular HGB Conc 30.9 g/dL (31.5-36.5); Mean Corpuscular Volume 88 fL (80-100); Mean Platelet Volume 11.2 fL (9.1-12.4); Platelet Count 148 K/mm3 (150-400); RDW Coefficient Variation 14.9 % (11.7-14.2); RDW Standard Deviation 47.2 fL (35.1-46.3); Red Blood Cell Count 4.11 M/mm3 (4.30-5.90); White Blood Cell Count 29.03 K/mm3 (4.00-11.30)
[2020-08-16 05:34] LABS: Anion Gap 4 mmol/L (6-16); Blood Urea Nitrogen 15 mg/dL (8-24); Bun/Creatinine Ratio 15.1 (12.0-20.0); CO2, Blood 32 mmol/L (21-32); Calcium, Blood 8.6 mg/dL (8.5-10.1); Chloride, Blood 108 mmol/L (98-108); Creatinine, Blood 0.99 mg/dL (0.60-1.20); Glomerular Filtration Rate >60 (60-); Glucose, Blood 146 mg/dL (70-99); Potassium, Blood 3.6 mmol/L (3.5-5.5); Sodium, Blood 144 mmol/L (136-145)
[2020-08-16 05:55] LABS: BASOPHILS ABSOLUTE MAN 0.29 K/mm3 (0.00-0.23); BASOPHILS PERCENT MAN 1 % (0-2); EOSINOPHILS PERCENT MAN 0 % (0-6); LYMPHOCYTES PERCENT MAN 72 % (21-46); MONOCYTES ABSOLUTE MAN 1.45 K/mm3 (0.16-1.47); MONOCYTES PERCENT MAN 5 % (4-13); NEUTROPHILS ABSOLUTE MAN 6.38 K/mm3 (1.96-9.15); SEG NEUTROPHILS PERCENT MAN 22 % (41-73); TOTAL CELLS COUNTED 100
[2020-08-16] MEDS ORDERED: Prinivil10 MG PO (15:23)
[2020-08-16] MEDS ORDERED: VISBIOME PROBIOTIC PO (15:24)
--- NOTE | 2020-08-16 16:56 | NUR ---
PT DISCHARGED FROM THE UNIT. IV REMOVED. MEDICATIONS FAXED. FOLLOW UP APTS REVIEWED. PT LEFT WITH FRIEND VIA WHEEL CHAIR AT [id number]
== END 2020-08-16 16:55 | disposition home or self-care (01) ==
LOC: ER 16:37 → MEDS 16:39 → ER 08-15 00:17 → MEDS 08-15 00:17
PROVIDERS: Emergency Medicine; Internal Medicine; Nurse Practitioner Acute Care; ADMIT Internal Medicine
DX: K52.9 Noninfective gastroenteritis and colitis, unspecified (principal); G92 Toxic encephalopathy; E87.2 Acidosis; T38.3X5A Adverse effect of insulin and oral hypoglycemic [antidiabetic] drugs, initial encounter; I71.4 Abdominal aortic aneurysm, without rupture; I48.20 Chronic atrial fibrillation, unspecified; I25.10 Atherosclerotic heart disease of native coronary artery without angina pectoris; E11.9 Type 2 diabetes mellitus without complications; G47.33 Obstructive sleep apnea (adult) (pediatric); N40.0 Benign prostatic hyperplasia without lower urinary tract symptoms; E78.5 Hyperlipidemia, unspecified; I11.0 Hypertensive heart disease with heart failure; I50.32 Chronic diastolic (congestive) heart failure; K21.9 Gastro-esophageal reflux disease without esophagitis; C91.10 Chronic lymphocytic leukemia of B-cell type not having achieved remission; E66.01 Morbid (severe) obesity due to excess calories; Z68.32 Body mass index [BMI] 32.0-32.9, adult; Z87.891 Personal history of nicotine dependence; Z96.652 Presence of left artificial knee joint; Z66 Do not resuscitate; Z88.5 Allergy status to narcotic agent; Z88.6 Allergy status to analgesic agent; Z79.4 Long term (current) use of insulin; Z79.01 Long term (current) use of anticoagulants; Z79.899 Other long term (current) drug therapy; Z20.828 Contact with and (suspected) exposure to other viral communicable diseases
CPT/HCPCS: 0241U; 36415; 71045; 74177; 80048; 80053; 81001; 82947; 83605; 83690; 83880; 84145; 85025; 87040; 87077; 87086; 87186; 93005; 93010; 94762; 96365-59; 96367; 96375; 99285-25; A9270; A9270-GY; G0378; J0696; J2405; Q9967

== ENCOUNTER 2020-09-15 10:32 | Emergency (ER) | payer OTHER, MEDICARE ==
[~2020-09-15] VITALS: Ht 185.4 cm; Wt 112.0 kg
[~2020-09-15 10:32] MED LIST changes: +AMLO5 PO; +CYCL10 PO; +HYDROCODONE-AC1 EA10 PO; +TRIA15CR3 TOP; +VISBIOME PROBIOTIC PO; +ZINC OXIDE57 GM TOP
[2020-09-15] MEDS ORDERED: Adult Glycerin1 EACH PR (11:09)
[2020-09-15] MEDS ORDERED: BISA5EC PO (11:09)
== END 2020-09-15 11:19 | disposition home or self-care (01) ==
LOC: ER 10:32
DX: K59.00 Constipation, unspecified (principal); I48.20 Chronic atrial fibrillation, unspecified; I25.10 Atherosclerotic heart disease of native coronary artery without angina pectoris; E11.9 Type 2 diabetes mellitus without complications; I11.0 Hypertensive heart disease with heart failure; I50.32 Chronic diastolic (congestive) heart failure; E78.5 Hyperlipidemia, unspecified; K21.9 Gastro-esophageal reflux disease without esophagitis; Z79.899 Other long term (current) drug therapy; Z79.01 Long term (current) use of anticoagulants; Z79.4 Long term (current) use of insulin; Z87.891 Personal history of nicotine dependence
CPT/HCPCS: 99282

== ENCOUNTER 2020-11-30 13:02 | Emergency (ER) | payer OTHER, MEDICARE ==
[~2020-11-30] VITALS: Ht 182.9 cm; Wt 107.5 kg
[~2020-11-30 13:02] MED LIST changes: +Adult Glycerin1 EACH PR; +BISA5EC PO
[2020-11-30 13:45] LABS: Hematocrit 44.2 % (37.0-53.0); Hemoglobin 14.2 g/dL (13.5-17.5); Mean Corpuscular HGB 28.9 pg (26.0-34.0); Mean Corpuscular HGB Conc 32.1 g/dL (31.5-36.5); Mean Corpuscular Volume 90 fL (80-100); Mean Platelet Volume 11.3 fL (9.1-12.4); Platelet Count 227 K/mm3 (150-400); RDW Coefficient Variation 14.4 % (11.7-14.2); RDW Standard Deviation 46.3 fL (35.1-46.3); Red Blood Cell Count 4.92 M/mm3 (4.30-5.90)
[2020-11-30 13:50] LABS: White Blood Cell Count 100.06 K/mm3 (4.00-11.30)
[2020-11-30 14:09] LABS: Alanine Aminotransfer (ALT/SGP 24 U/L (12-78); Albumin, Blood 3.6 g/dL (3.4-5.0); Albumin/Globulin Ratio 0.9 (0.8-1.8); Alk Phos 146 U/L (50-136); Anion Gap 6 mmol/L (6-16); Aspartate Aminotrans (AST/SGOT 19 U/L (12-37); Bilirubin, Total 0.8 mg/dL (0.1-1.0); Blood Urea Nitrogen 16 mg/dL (8-24); CO2, Blood 27 mmol/L (21-32); Calcium, Blood 9.4 mg/dL (8.5-10.1); Chloride, Blood 106 mmol/L (98-108); Creatinine, Blood 1.23 mg/dL (0.60-1.20); Globulin, Blood 4.2 g/dL (2.2-4.0); Glomerular Filtration Rate >60 (60-); Glucose, Blood 127 mg/dL (70-99); Potassium, Blood 4.5 mmol/L (3.5-5.5); Sodium, Blood 139 mmol/L (136-145); Total Protein, Blood 7.8 g/dL (6.4-8.2)
[2020-11-30 14:41] LABS: BASOPHILS PERCENT MAN 0 % (0-2); EOSINOPHILS PERCENT MAN 0 % (0-6); LYMPHOCYTES ABSOLUTE MAN 81.04 K/mm3 (0.84-5.20); LYMPHOCYTES PERCENT MAN 81 % (21-46); MONOCYTES PERCENT MAN 5 % (4-13); SEG NEUTROPHILS PERCENT MAN 14 % (41-73); TOTAL CELLS COUNTED 100
[2020-11-30 15:48] LABS: Source, Urine Clean Catch
[2020-11-30 16:03] LABS: Appearance, Urine Hazy (Clear); Blood, Urine 4+ (Neg); Color, Urine Yellow (P-Yellow); Glucose Qualitative, Urine Neg (Neg); Ketones, Urine 1+ (Neg); Leukocyte Esterase, Urine 3+ (Neg); Nitrite, Urine Pos (Neg); Protein, Urine 3+ (Neg); Urobilinogen, Urine 1+ (Normal)
[2020-11-30 16:13] LABS: Bilirubin, Urine 1+ (Neg)
[2020-11-30 16:16] LABS: Bacteria Many /hpf
[2020-11-30 16:18] LABS: White Blood Cells, Urine 25-50 /hpf (0-5)
[2020-11-30 16:20] LABS: Amorphous Mod (0-Heavy); Squamous Epithelial Cells Few /hpf (Few)
== END 2020-11-30 17:49 | disposition home or self-care (01) ==
LOC: ER 13:02
PROVIDERS: Emergency Medicine
DX: I95.9 Hypotension, unspecified (principal); C91.10 Chronic lymphocytic leukemia of B-cell type not having achieved remission; R10.9 Unspecified abdominal pain; E11.9 Type 2 diabetes mellitus without complications; E78.5 Hyperlipidemia, unspecified; I11.0 Hypertensive heart disease with heart failure; K21.9 Gastro-esophageal reflux disease without esophagitis; I50.32 Chronic diastolic (congestive) heart failure; Z79.4 Long term (current) use of insulin; Z88.5 Allergy status to narcotic agent; Z79.01 Long term (current) use of anticoagulants; Z79.899 Other long term (current) drug therapy; Z87.891 Personal history of nicotine dependence
CPT/HCPCS: 36415; 80053; 81001; 83605; 85025; 87077; 87086; 87186; 93005; 93010; 96360; 99285-25; J7120

== ENCOUNTER 2021-07-14 01:20 | Inpatient (IN) | payer OTHER, MEDICARE ==
[~2021-07-14] VITALS: Ht 182.9 cm; Wt 105.5 kg
[2021-07-14 01:23] LABS: Hematocrit 34.3 % (37.0-53.0); Hemoglobin 10.2 g/dL (13.5-17.5); Mean Corpuscular HGB 27.9 pg (26.0-34.0); Mean Corpuscular HGB Conc 29.7 g/dL (31.5-36.5); Mean Corpuscular Volume 94 fL (80-100); Mean Platelet Volume 11.7 fL (9.1-12.4); Platelet Count 151 K/mm3 (150-400); RDW Coefficient Variation 15.8 % (11.7-14.2); RDW Standard Deviation 53.7 fL (35.1-46.3); Red Blood Cell Count 3.66 M/mm3 (4.30-5.90)
[2021-07-14 01:24] LABS: White Blood Cell Count 91.73 K/mm3 (4.00-11.30)
[2021-07-14 01:41] LABS: Albumin, Blood 2.8 g/dL (3.4-5.0); Albumin/Globulin Ratio 0.8 (0.8-1.8); Alk Phos 105 U/L (50-136); Anion Gap 4 mmol/L (6-16); Aspartate Aminotrans (AST/SGOT 17 U/L (12-37); Bilirubin, Total 0.4 mg/dL (0.1-1.0); Blood Urea Nitrogen 19 mg/dL (8-24); Bun/Creatinine Ratio 21.6 (12.0-20.0); CO2, Blood 28 mmol/L (21-32); Calcium, Blood 8.9 mg/dL (8.5-10.1); Chloride, Blood 111 mmol/L (98-108); Creatinine, Blood 0.88 mg/dL (0.60-1.20); Globulin, Blood 3.7 g/dL (2.2-4.0); Glomerular Filtration Rate >60 (60-); Glucose, Blood 176 mg/dL (70-99); Potassium, Blood 4.5 mmol/L (3.5-5.5); Sodium, Blood 143 mmol/L (136-145); Total Protein, Blood 6.5 g/dL (6.4-8.2)
[2021-07-14 01:42] LABS: Alanine Aminotransfer (ALT/SGP 16 U/L (12-78); Troponin I <0.015 ng/mL (0.000-0.040)
[2021-07-14 02:33] LABS: BASOPHILS PERCENT MAN 0 % (0-2); EOSINOPHILS PERCENT MAN 0 % (0-6); LYMPHOCYTES ABSOLUTE MAN 83.47 K/mm3 (0.84-5.20); LYMPHOCYTES PERCENT MAN 91 % (21-46); MONOCYTES ABSOLUTE MAN 1.83 K/mm3 (0.16-1.47); MONOCYTES PERCENT MAN 2 % (4-13); NEUTROPHILS ABSOLUTE MAN 6.42 K/mm3 (1.96-9.15); SEG NEUTROPHILS PERCENT MAN 7 % (41-73); TOTAL CELLS COUNTED 100
[2021-07-14 03:57] LABS: SARS-Cov-2 (COVID-19) PCR, MMC NEGATIVE (NEGATIVE)
--- NOTE | 2021-07-14 17:57 | NUR ---
PT ADMITTED THIS AFTERNOON FROM ED,PT AAOX4,STANDBY ASSIST WITH WALKER TO BATROOM.PT ON ROOM AIR,TELE IN PLACE RUNNING AFIB AT 75 PER AMMUNITION STOREKEEPER. PT IS VERY PLEASANT,COORPERATIVE WITH ALL STAFF. PT DENIES CHEST PAIN,N/V,SOB AT THIS TIME.PT LUNGS DIM AT BASE,PT HAVE REDNESS ON COCCYX AREA. PT HAVE CHRONIC INDWELLING CATHETER IN PLAVE, DRAINAGE TO GRAVITY,NORMAL COLOR URINE.PT IN BED,BED IN LOW POSITION,CALL LIGHT IN PLACE WILL CONTINUE TO MONITOR.
--- NOTE | 2021-07-14 21:38 | NUR ---
BG 151 BG 151, PT HAS 40 UNITS OF SEMGLEE ORDERED FOR THE NIGHT. PT WAS JUST ADMITTED AND HAS NOT RECEIVED 40 UNITS THIS ADMISSION. NOTHING TO REFERENCE TO DETERMINE IF HE WOULD TOLERATE 40 UNITS OF LANTUS. PT BG IN THE MID TO LOW 100'S. DR. BENITEZ CALLED AND NOTIFIED AND TO CLARIFY ORDER. SHE WOULD LIKE TO DO 15 UNITS SEMGLEE TONIGHT INSTEAD OF 40.
--- NOTE | 2021-07-15 04:07 | NUR ---
SHIFT SUMMARY NO ACUTE CHANGES TO REPORT OVERNIGHT, PT HAS RESTED T/O THE SHIFT AND HAS DENIED NEEDS. PLESANT AND COOPERATIVE WITH CARE. VITALS RIKI STABLE. BED IN LOWEST POSITION, CALL LIGHT WITHIN REACH.
[2021-07-15 04:28] LABS: EOSINOPHILS ABSOLUTE AUTO 0.18 K/mm3 (0.00-0.68); EOSINOPHILS PERCENT AUTO 0 % (0-6); Hematocrit 33.2 % (37.0-53.0); Hemoglobin 9.9 g/dL (13.5-17.5); Mean Corpuscular HGB 27.7 pg (26.0-34.0); Mean Corpuscular HGB Conc 29.8 g/dL (31.5-36.5); Mean Corpuscular Volume 93 fL (80-100); Platelet Count 135 K/mm3 (150-400); RDW Coefficient Variation 15.7 % (11.7-14.2); RDW Standard Deviation 52.5 fL (35.1-46.3); Red Blood Cell Count 3.57 M/mm3 (4.30-5.90)
[2021-07-15 04:52] LABS: Anion Gap 3 mmol/L (6-16); Blood Urea Nitrogen 15 mg/dL (8-24); CO2, Blood 28 mmol/L (21-32); Calcium, Blood 8.8 mg/dL (8.5-10.1); Chloride, Blood 111 mmol/L (98-108); Creatinine, Blood 0.83 mg/dL (0.60-1.20); Glomerular Filtration Rate >60 (60-); Glucose, Blood 120 mg/dL (70-99); Sodium, Blood 142 mmol/L (136-145)
[2021-07-15 05:21] LABS: BASOPHILS ABSOLUTE AUTO 0.12 K/mm3 (0.00-0.23); BASOPHILS PERCENT AUTO 0 % (0-2); IMMATURE GRAN ABSOLUTE AUTO 0.18 K/mm3 (0.00-0.10); IMMATURE GRAN PERCENT AUTO 0 % (0-1); LYMPHOCYTES ABSOLUTE AUTO 71.98 K/mm3 (0.84-5.20); LYMPHOCYTES PERCENT AUTO 89 % (21-46); MONOCYTES ABSOLUTE AUTO 2.98 K/mm3 (0.16-1.47); MONOCYTES PERCENT AUTO 4 % (4-13); NEUTROPHILS ABSOLUTE AUTO 5.55 K/mm3 (1.96-9.15); NEUTROPHILS PERCENT AUTO 7 % (41-73); White Blood Cell Count 80.99 K/mm3 (4.00-11.30)
--- NOTE | 2021-07-15 18:38 | NUR ---
PT ALERT ORIENTED X 4,PT C/O PAIN MEDICATED WITH TYLENOL THIS AM,DENIES N/V, SOB.PT IN BED,TELE IN PLACE HAD COUPLE LOW 40S AND HIGH 50S TODAY BUT NOW IS AFIB AT 62,PT ON ROOM AIR,CONTINOUS PULSE OXIMETRY SATTING IN 90S.DR TEO WEISS FOR A POSSIBLE THORA ON THU.PT SUPRA INDWELLING CATHETER IN PLACE DRAINAGE TO GRAVITY. MEPILEX ON COCCYX AREA.PT ONE ASSIST WITH WALKER TO BATROOM.PT IN BED,BED IN LOW POSITION,CALL LIGHT IN PLACE WILL CONTINUE TO MONITOR.
[2021-07-16 04:50] LABS: EOSINOPHILS ABSOLUTE AUTO 0.18 K/mm3 (0.00-0.68); EOSINOPHILS PERCENT AUTO 0 % (0-6); Hematocrit 33.5 % (37.0-53.0); Hemoglobin 9.9 g/dL (13.5-17.5); Mean Corpuscular HGB 27.6 pg (26.0-34.0); Mean Corpuscular HGB Conc 29.6 g/dL (31.5-36.5); Mean Corpuscular Volume 93 fL (80-100); Mean Platelet Volume 12.3 fL (9.1-12.4); Platelet Count 153 K/mm3 (150-400); RDW Coefficient Variation 15.9 % (11.7-14.2); RDW Standard Deviation 53.6 fL (35.1-46.3); Red Blood Cell Count 3.59 M/mm3 (4.30-5.90)
[2021-07-16 05:04] LABS: International Normalized Ratio 1.14; Prothrombin Time Results 11.9 Sec (9.7-11.5)
[2021-07-16 05:09] LABS: BASOPHILS ABSOLUTE AUTO 0.12 K/mm3 (0.00-0.23); BASOPHILS PERCENT AUTO 0 % (0-2); IMMATURE GRAN PERCENT AUTO 0 % (0-1); LYMPHOCYTES PERCENT AUTO 89 % (21-46); MONOCYTES ABSOLUTE AUTO 3.12 K/mm3 (0.16-1.47); MONOCYTES PERCENT AUTO 4 % (4-13); NEUTROPHILS ABSOLUTE AUTO 5.89 K/mm3 (1.96-9.15); NEUTROPHILS PERCENT AUTO 7 % (41-73)
[2021-07-16 05:10] LABS: White Blood Cell Count 85.61 K/mm3 (4.00-11.30)
--- NOTE | 2021-07-16 05:15 | NUR ---
SHIFT SUMMARY PATIENT ALERT AND ORIENTED. HAD NO COMPLAINTS OF PAIN OR SHORTNESS OF BREATH. NO ACUTE ISSUES NOTED OVERNIGHT. BED IN LOWEST POSITION WITH WHEELS LOCKED AND ALARM ON. CALL LIGHT WITHIN REACH. REPORT GIVEN TO ONCOMING RN.
[2021-07-16 05:16] LABS: Anion Gap 6 mmol/L (6-16); Blood Urea Nitrogen 17 mg/dL (8-24); Bun/Creatinine Ratio 17.5 (12.0-20.0); CO2, Blood 25 mmol/L (21-32); Calcium, Blood 9.3 mg/dL (8.5-10.1); Chloride, Blood 109 mmol/L (98-108); Creatinine, Blood 0.97 mg/dL (0.60-1.20); Glomerular Filtration Rate >60 (60-); Glucose, Blood 101 mg/dL (70-99); Potassium, Blood 4.2 mmol/L (3.5-5.5); Sodium, Blood 140 mmol/L (136-145)
--- NOTE | 2021-07-16 18:52 | NUR ---
PT AAOX4,PT DENIES PAIN,SOB.PT NAUSEATED THIS AFTERNOON,DRINK A LITTLE BILLY MIST THEN STATED LATER FEEL BETTER.PT SUPRA.PICHARDO INTACT,DRAINAGE TO GRAVITY.MEPILEX ON COCCYX AREA,PT HAD A COUPLE BM TODAY,PT ONE ASSIST WITH WALKER TO BSC.PT IN BED,BED IN LOW POSITION,CALL LIGHT IN REACH WILL CONTINUE TO MONITOR.
--- NOTE | 2021-07-17 03:54 | NUR ---
PT RESTING IN BED AAO. DENIES PAIN OR SOB. A-FIB WITH BBB, HR 60. SAT 94% ON CONT PULSE OX. SUPRAPUBIC CATH DRAINING CLEAR YELLOW URINE. VSS. ATTENDS IN PLACE. NO ACUTE CHANGES IN STATUS DURING SHIFT.
[2021-07-17 05:49] LABS: Total Protein, Blood 6.2 g/dL (6.4-8.2)
[2021-07-17] MEDS ORDERED: MIRALAX17 GM PO (13:57)
[2021-07-17] MEDS ORDERED: XARELTO20 MG PO (13:58)
[2021-07-17] MEDS ORDERED: AMOCLA875 PO (13:58)
[2021-07-17 15:45] LABS: Automated BF RBC Count 0.209 M/mm3 (0-0); Automated BF WBC Count 5.831 K/mm3 (0-999); Body Fluid WBC Count 5831 /mm3 (0-999); RBC Count, Body Fluid 209000 /mm3 (0-0)
[2021-07-17 15:55] LABS: Glucose, Body Fluid 160 mg/dL; Lactate Dehydrogenase, Body Fl 159 U/L; Protein, Body Fluid 2.8 g/dL
[2021-07-17 17:18] LABS: Total Cell Count, Body Fluid 100
[2021-07-17 17:19] LABS: Appearance, Body Fluid Cloudy (Clear); Color, Body Fluid Red (None-Yellow)
--- NOTE | 2021-07-17 19:08 | NUR ---
PT HAD A THORA THIS AFTERNOON,740ML REMOVED PT TOLERATED WELL.PT DISCHAGED HOME,PT STATED DOESN'T FEEL COMFORTABLE TO HOME THIS AFERTNOON,RN CALLED THE MD AND MD AGREED FOR PT TO STAY THE NIGHT AND LEAVE UN THE MORNING.PT ASSESSMENT REMAINS UNCHANGED.PT ON TELE AFIB AT 70.PT PICHARDO DRAINAGE TO GRAVITY.PT AAOX4,DENIES PAIN,N/V,SOB AT THIS TIME.PT IN BED,BED IN LOW POSITION,CALL [facility] IN REACH WILL CONTINUE TO MONITOR.
--- NOTE | 2021-07-18 04:04 | NUR ---
RECEIVED PT IN BED AAO. ANXIOUS AT TIMES. AFIB ON TELE. HR 74. DENIES CHEST PAIN. RESP UNLABORED. SATS 94 ON ROOM AIR. VSS. NO DRAINAGE NOTED AT PROCEDURE SITE. C/O OF PAIN TO LEFT SIDE. DR. BENITEZ MADE AWARE. ULTRAM GIVEN. PICHARDO PATENT DRAINING CLEAR YELLOW URINE. CALL LIGHT WITHIN REACH. CONTINUE TO MONITOR.
--- NOTE | 2021-07-18 11:49 | NUR ---
SPOKE WITH DR HOWARD REGARDING DISCHARGE. RT COMPLETED HOME 02 EVAL AND REPORTS NO HOME 02 NEEDED, THERAPY RECOMMENDING HH WHICH PT ALREADY ESTABLISHED WITH [facility]. FAMILY AT BEDSIDE TO TAKE PT HOME, THEY REPORT PT HAS A WALKER AT HOME ALREADY. DISCHARGE PAPERWORK TO BE COMPLETED BY BEDSIDE RN.
[2021-07-18] MEDS ORDERED: TRAM50 PO (11:56)
--- NOTE | 2021-07-18 12:07 | NUR ---
PT AAOX4,PT ASSESSMENT REMAINS UNCHANGED,PT HAS NO ACUTE EVENTS T/O SHIFT.PT DISCHARGE HOME PT TAKE ALL BELONGINGS PT ALSO TAKE THE ALCALABRUTINIB (THE HOME MEDS FOR LYMPHOMA) AND GIVE THE BOTTLE TO SYLVIE SAVAGE PT CAREGIVER.PT VERBALIZED UNDERSTANDING OF THE DISCHARGE SUMMARY AND PT LEAVE MEDICAL FLOOR VIA WHEELCHAIR
== END 2021-07-18 12:10 | disposition home health service (06) | DRG 186 ==
LOC: ER 01:20 → ERHOLD 05:18 → MEDS 05:18 → ENPENDDIS 07-17 16:54 → MEDS 07-18 12:10
PROVIDERS: Internal Medicine; Internal Medicine Critical Care Medicine; Student in an Organized Health Care Education/Training Program; ADMIT Family Medicine
PROC: 0W9B3ZZ Drainage of Left Pleural Cavity, Percutaneous Approach (ICD-10-PCS; principal; 2021-07-17)
DX: J90 Pleural effusion, not elsewhere classified (principal); J18.9 Pneumonia, unspecified organism; I48.20 Chronic atrial fibrillation, unspecified; I50.32 Chronic diastolic (congestive) heart failure; C91.10 Chronic lymphocytic leukemia of B-cell type not having achieved remission; D84.821 Immunodeficiency due to drugs; Z20.822 Contact with and (suspected) exposure to COVID-19; I25.10 Atherosclerotic heart disease of native coronary artery without angina pectoris; E11.9 Type 2 diabetes mellitus without complications; G47.33 Obstructive sleep apnea (adult) (pediatric); N40.0 Benign prostatic hyperplasia without lower urinary tract symptoms; R26.9 Unspecified abnormalities of gait and mobility; D63.8 Anemia in other chronic diseases classified elsewhere; E78.5 Hyperlipidemia, unspecified; I11.0 Hypertensive heart disease with heart failure; K21.9 Gastro-esophageal reflux disease without esophagitis; Z96.652 Presence of left artificial knee joint; Z79.01 Long term (current) use of anticoagulants; Z88.5 Allergy status to narcotic agent; Z28.21 Immunization not carried out because of patient refusal; Z88.6 Allergy status to analgesic agent; Z79.899 Other long term (current) drug therapy; Z92.21 Personal history of antineoplastic chemotherapy; Z93.50 Unspecified cystostomy status; Z98.890 Other specified postprocedural states; Z87.891 Personal history of nicotine dependence; Z85.118 Personal history of other malignant neoplasm of bronchus and lung
CPT/HCPCS: 32555; 36415; 71045; 71046; 71260; 80048; 80053; 82945; 82947; 83615; 84145; 84155; 84157; 84484; 85025; 85610; 85730; 87070; 87205; 88108; 88305; 89051; 93005; 93010; 94640; 94660; 94760; 94761; 94762; 97110; 97162; 99282; A9270; J0456; J0696; J1815; J7050; Q9967; U0004

== ENCOUNTER 2021-07-19 10:39 | Emergency (ER) | payer OTHER ==
[~2021-07-19] VITALS: Ht 182.9 cm; Wt 105.0 kg
[~2021-07-19 10:39] MED LIST changes: +AMOCLA875 PO; +MIRALAX17 GM PO; +TRAM50 PO
[2021-07-19 11:14] LABS: EOSINOPHILS ABSOLUTE AUTO 0.38 K/mm3 (0.00-0.68); EOSINOPHILS PERCENT AUTO 0 % (0-6); Hematocrit 37.4 % (37.0-53.0); Hemoglobin 10.9 g/dL (13.5-17.5); Mean Corpuscular HGB 27.7 pg (26.0-34.0); Mean Corpuscular HGB Conc 29.1 g/dL (31.5-36.5); Mean Corpuscular Volume 95 fL (80-100); Mean Platelet Volume 12.4 fL (9.1-12.4); Platelet Count 182 K/mm3 (150-400); RDW Coefficient Variation 15.5 % (11.7-14.2); RDW Standard Deviation 53.1 fL (35.1-46.3); Red Blood Cell Count 3.94 M/mm3 (4.30-5.90)
[2021-07-19 11:30] LABS: Anion Gap 3 mmol/L (6-16); Blood Urea Nitrogen 19 mg/dL (8-24); Bun/Creatinine Ratio 17.4 (12.0-20.0); CO2, Blood 28 mmol/L (21-32); Calcium, Blood 8.9 mg/dL (8.5-10.1); Chloride, Blood 109 mmol/L (98-108); Creatinine, Blood 1.09 mg/dL (0.60-1.20); Glomerular Filtration Rate >60 (60-); Glucose, Blood 94 mg/dL (70-99); Potassium, Blood 4.5 mmol/L (3.5-5.5); Sodium, Blood 140 mmol/L (136-145)
[2021-07-19 12:04] LABS: BASOPHILS ABSOLUTE AUTO 0.12 K/mm3 (0.00-0.23); BASOPHILS PERCENT AUTO 0 % (0-2); IMMATURE GRAN PERCENT AUTO 0 % (0-1); LYMPHOCYTES ABSOLUTE AUTO 95.98 K/mm3 (0.84-5.20); LYMPHOCYTES PERCENT AUTO 91 % (21-46); MONOCYTES ABSOLUTE AUTO 2.55 K/mm3 (0.16-1.47); MONOCYTES PERCENT AUTO 2 % (4-13); NEUTROPHILS ABSOLUTE AUTO 6.73 K/mm3 (1.96-9.15); NEUTROPHILS PERCENT AUTO 6 % (41-73)
[2021-07-19 12:06] LABS: White Blood Cell Count 106.06 K/mm3 (4.00-11.30)
[2021-07-19 12:38] LABS: BASOPHILS PERCENT MAN 0 % (0-2); EOSINOPHILS ABSOLUTE MAN 1.06 K/mm3 (0.00-0.68); EOSINOPHILS PERCENT MAN 1 % (0-6); LYMPHOCYTES ABSOLUTE MAN 98.63 K/mm3 (0.84-5.20); LYMPHOCYTES PERCENT MAN 93 % (21-46); MONOCYTES PERCENT MAN 0 % (4-13); NEUTROPHILS ABSOLUTE MAN 6.36 K/mm3 (1.96-9.15); SEG NEUTROPHILS PERCENT MAN 6 % (41-73); TOTAL CELLS COUNTED 100
== END 2021-07-19 14:44 | disposition home or self-care (01) ==
LOC: ER 10:39
PROVIDERS: Emergency Medicine
DX: R04.2 Hemoptysis (principal); Z79.4 Long term (current) use of insulin; I48.20 Chronic atrial fibrillation, unspecified; I25.10 Atherosclerotic heart disease of native coronary artery without angina pectoris; E11.9 Type 2 diabetes mellitus without complications; I11.0 Hypertensive heart disease with heart failure; I50.32 Chronic diastolic (congestive) heart failure; K21.9 Gastro-esophageal reflux disease without esophagitis; Z88.6 Allergy status to analgesic agent; Z79.899 Other long term (current) drug therapy; J90 Pleural effusion, not elsewhere classified
CPT/HCPCS: 36415; 71046; 80048; 85025; 99284-25; J7120

== ENCOUNTER 2021-10-01 02:25 | Emergency (ER) | payer OTHER ==
[~2021-10-01] VITALS: Ht 185.4 cm; Wt 99.8 kg
[2021-10-01] MEDS ORDERED: Hydroxyzine HCl25 MG PO (02:40)
[2021-10-01] MEDS ORDERED: GABA300 PO (02:40)
[2021-10-01] MEDS ORDERED: CYCL10 PO (02:41)
[2021-10-01 04:19] LABS: EOSINOPHILS ABSOLUTE AUTO 0.17 K/mm3 (0.00-0.68); EOSINOPHILS PERCENT AUTO 0 % (0-6); Hematocrit 31.3 % (37.0-53.0); Hemoglobin 8.8 g/dL (13.5-17.5); IMMATURE GRAN ABSOLUTE AUTO 0.39 K/mm3 (0.00-0.10); IMMATURE GRAN PERCENT AUTO 0 % (0-1); Mean Corpuscular HGB 24.8 pg (26.0-34.0); Mean Corpuscular HGB Conc 28.1 g/dL (31.5-36.5); Mean Corpuscular Volume 88 fL (80-100); Mean Platelet Volume 9.8 fL (9.1-12.4); NEUTROPHILS ABSOLUTE AUTO 10.45 K/mm3 (1.96-9.15); NEUTROPHILS PERCENT AUTO 11 % (41-73); Platelet Count 404 K/mm3 (150-400); RDW Coefficient Variation 16.4 % (11.7-14.2); RDW Standard Deviation 51.4 fL (35.1-46.3); Red Blood Cell Count 3.55 M/mm3 (4.30-5.90)
[2021-10-01 04:27] LABS: BASOPHILS PERCENT AUTO 0 % (0-2); LYMPHOCYTES ABSOLUTE AUTO 82.27 K/mm3 (0.84-5.20); LYMPHOCYTES PERCENT AUTO 86 % (21-46); MONOCYTES ABSOLUTE AUTO 2.45 K/mm3 (0.16-1.47); MONOCYTES PERCENT AUTO 3 % (4-13); White Blood Cell Count 95.83 K/mm3 (4.00-11.30)
== END 2021-10-01 05:00 | disposition home or self-care (01) ==
LOC: ER 02:25
PROVIDERS: Emergency Medicine
DX: R04.0 Epistaxis (principal); I25.10 Atherosclerotic heart disease of native coronary artery without angina pectoris; G47.33 Obstructive sleep apnea (adult) (pediatric); K21.9 Gastro-esophageal reflux disease without esophagitis; E78.5 Hyperlipidemia, unspecified; I11.0 Hypertensive heart disease with heart failure; I50.9 Heart failure, unspecified; E11.9 Type 2 diabetes mellitus without complications; I48.20 Chronic atrial fibrillation, unspecified; Z87.891 Personal history of nicotine dependence; Z85.118 Personal history of other malignant neoplasm of bronchus and lung; Z88.5 Allergy status to narcotic agent; Z88.6 Allergy status to analgesic agent; Z79.4 Long term (current) use of insulin; Z79.899 Other long term (current) drug therapy
CPT/HCPCS: 71045; 85025; 99284-25

== ENCOUNTER 2021-12-09 13:51 | Inpatient (IN) | payer OTHER ==
[~2021-12-09] VITALS: Ht 188 cm; Wt 105.3 kg
[~2021-12-09 13:51] MED LIST changes: +Hydroxyzine HCl25 MG PO
[2021-12-09 15:02] LABS: Source, Urine Foley catheter
[2021-12-09 15:08] LABS: Hematocrit 40.5 % (37.0-53.0); Hemoglobin 11.1 g/dL (13.5-17.5); Mean Corpuscular HGB 26.6 pg (26.0-34.0); Mean Corpuscular HGB Conc 27.4 g/dL (31.5-36.5); Mean Corpuscular Volume 97 fL (80-100); Platelet Count 153 K/mm3 (150-400); RDW Coefficient Variation 20.3 % (11.7-14.2); RDW Standard Deviation 71.5 fL (35.1-46.3); Red Blood Cell Count 4.17 M/mm3 (4.30-5.90)
[2021-12-09 15:10] LABS: Appearance, Urine Cloudy (Clear); Bilirubin, Urine Neg (Neg); Blood, Urine 4+ (Neg); Color, Urine Yellow (P-Yellow); Glucose Qualitative, Urine Neg (Neg); Ketones, Urine Neg (Neg); Leukocyte Esterase, Urine 3+ (Neg); Nitrite, Urine Neg (Neg); Protein, Urine 3+ (Neg); Urobilinogen, Urine NORM (Normal)
[2021-12-09 15:24] LABS: White Blood Cells, Urine 50-100 /hpf (0-5)
[2021-12-09 15:25] LABS: Bacteria Many /hpf; Squamous Epithelial Cells Not Seen /hpf (Few)
[2021-12-09 15:34] LABS: Alanine Aminotransfer (ALT/SGP 10 U/L (12-78); Albumin, Blood 2.8 g/dL (3.4-5.0); Albumin/Globulin Ratio 0.7 (0.8-1.8); Alk Phos 118 U/L (50-136); Anion Gap 1 mmol/L (6-16); Aspartate Aminotrans (AST/SGOT 12 U/L (12-37); Bilirubin, Total 0.5 mg/dL (0.1-1.0); Blood Urea Nitrogen 13 mg/dL (8-24); Bun/Creatinine Ratio 15.9 (12.0-20.0); CO2, Blood 32 mmol/L (21-32); Chloride, Blood 110 mmol/L (98-108); Creatinine, Blood 0.82 mg/dL (0.60-1.20); Glomerular Filtration Rate >60 (60-); Glucose, Blood 144 mg/dL (70-99); Potassium, Blood 4.3 mmol/L (3.5-5.5); Sodium, Blood 143 mmol/L (136-145); Total Protein, Blood 6.8 g/dL (6.4-8.2)
[2021-12-09 15:49] LABS: White Blood Cell Count 89.46 K/mm3 (4.00-11.30)
[2021-12-09 16:37] LABS: BASOPHILS PERCENT MAN 0 % (0-2); EOSINOPHILS PERCENT MAN 0 % (0-6); LYMPHOCYTES % ATYPICAL MANUAL 63 % (0-0); LYMPHOCYTES ABSOLUTE MAN 77.83 K/mm3 (0.84-5.20); LYMPHOCYTES PERCENT MAN 24 % (21-46); MONOCYTES ABSOLUTE MAN 1.78 K/mm3 (0.16-1.47); MONOCYTES PERCENT MAN 2 % (4-13); NEUTROPHILS ABSOLUTE MAN 9.84 K/mm3 (1.96-9.15); SEG NEUTROPHILS PERCENT MAN 11 % (41-73); TOTAL CELLS COUNTED 100
[2021-12-09 18:04] LABS: Hematocrit 35.9 % (37.0-53.0); Mean Corpuscular HGB Conc 27.9 g/dL (31.5-36.5); Mean Corpuscular Volume 97 fL (80-100); Mean Platelet Volume 12.1 fL (9.1-12.4); Platelet Count 130 K/mm3 (150-400); RDW Coefficient Variation 20.3 % (11.7-14.2); RDW Standard Deviation 72.3 fL (35.1-46.3); Red Blood Cell Count 3.71 M/mm3 (4.30-5.90)
[2021-12-09 18:13] LABS: White Blood Cell Count 60.71 K/mm3 (4.00-11.30)
[2021-12-09 18:21] LABS: Alanine Aminotransfer (ALT/SGP 11 U/L (12-78); Albumin, Blood 2.6 g/dL (3.4-5.0); Albumin/Globulin Ratio 0.8 (0.8-1.8); Alk Phos 97 U/L (50-136); Anion Gap Unable to Calculate mmol/L (6-16); Aspartate Aminotrans (AST/SGOT 8 U/L (12-37); Bilirubin, Total 0.4 mg/dL (0.1-1.0); Blood Urea Nitrogen 14 mg/dL (8-24); Bun/Creatinine Ratio 15.9 (12.0-20.0); CO2, Blood 33 mmol/L (21-32); Calcium, Blood 8.6 mg/dL (8.5-10.1); Chloride, Blood 113 mmol/L (98-108); Creatinine, Blood 0.88 mg/dL (0.60-1.20); Globulin, Blood 3.1 g/dL (2.2-4.0); Glomerular Filtration Rate >60 (60-); Glucose, Blood 133 mg/dL (70-99); Potassium, Blood 4.8 mmol/L (3.5-5.5); Sodium, Blood 144 mmol/L (136-145); Total Protein, Blood 5.7 g/dL (6.4-8.2)
[2021-12-09 19:02] LABS: Influenza A, PCR NEGATIVE (NEGATIVE); Influenza B, PCR NEGATIVE (NEGATIVE); Resp Syncytial Virus, PCR NEGATIVE (NEGATIVE); SARS-Cov-2 (COVID-19) PCR, MMC NEGATIVE (NEGATIVE)
[2021-12-09 19:13] LABS: BASOPHILS PERCENT MAN 1 % (0-2); EOSINOPHILS PERCENT MAN 0 % (0-6); LYMPHOCYTES % ATYPICAL MANUAL 49 % (0-0); LYMPHOCYTES ABSOLUTE MAN 50.99 K/mm3 (0.84-5.20); LYMPHOCYTES PERCENT MAN 35 % (21-46); MONOCYTES ABSOLUTE MAN 1.21 K/mm3 (0.16-1.47); MONOCYTES PERCENT MAN 2 % (4-13); NEUTROPHILS ABSOLUTE MAN 7.89 K/mm3 (1.96-9.15); SEG NEUTROPHILS PERCENT MAN 13 % (41-73); TOTAL CELLS COUNTED 100
[2021-12-10 04:21] LABS: Anion Gap 3 mmol/L (6-16); Blood Urea Nitrogen 13 mg/dL (8-24); Bun/Creatinine Ratio 15.4 (12.0-20.0); CO2, Blood 29 mmol/L (21-32); Calcium, Blood 8.3 mg/dL (8.5-10.1); Chloride, Blood 113 mmol/L (98-108); Creatinine, Blood 0.85 mg/dL (0.60-1.20); Glomerular Filtration Rate >60 (60-); Glucose, Blood 126 mg/dL (70-99); Potassium, Blood 4.6 mmol/L (3.5-5.5); Sodium, Blood 145 mmol/L (136-145)
[2021-12-10 06:09] LABS: Hematocrit 36.8 % (37.0-53.0); Hemoglobin 10.1 g/dL (13.5-17.5); Mean Corpuscular HGB 26.9 pg (26.0-34.0); Mean Corpuscular HGB Conc 27.4 g/dL (31.5-36.5); Mean Corpuscular Volume 98 fL (80-100); Platelet Count 115 K/mm3 (150-400); RDW Coefficient Variation 20.3 % (11.7-14.2); RDW Standard Deviation 72.2 fL (35.1-46.3); Red Blood Cell Count 3.76 M/mm3 (4.30-5.90)
--- NOTE | 2021-12-10 06:29 | NUR ---
ADMIT NOTE AND SHIFT SUMMARY PT ARRIVED TO PCU FROM ED VIA ED STRETCHER AT APPROX 0025. PT WAS SLID BY 4 STAFF FROM ED STRETCHER TO PCU BED. PT ALERT, ORIENTED TO SELF, FOLLOWS DIRECTIONS. FORGETFUL. SP02>92% ON 2L. PT C/O OF SOB X1 THIS SHIFT, PRN BREATHING TX GIVEN X1. TELEMETRY SHOWS AFIB, 50'S-60'S AVG. BP STABLE. SUPRAPUBIC CATHETER, NOT REPLACED IN ER, DRAINING DARK URINE TO GRAVITY. CATHETER CARE DONE. ONE SMALL BM THIS SHIFT IN ATTENDS. CLEAN ATTENDS IN PLACE. PT C/O OF NEEDING TO GO MORE, BUT REFUSED BEDPAN. ABX INFUSED PER EMAR. PT DID NOT SLEEP DURING NIGHT. ORIENTED TO ROOM, CALL LIGHT, BUT DOES NOT USE CALL LIGHT, CALLS OUT.
[2021-12-10 06:31] LABS: White Blood Cell Count 71.26 K/mm3 (4.00-11.30)
[2021-12-10 07:18] LABS: BASOPHILS PERCENT MAN 0 % (0-2); EOSINOPHILS PERCENT MAN 0 % (0-6); LYMPHOCYTES ABSOLUTE MAN 65.55 K/mm3 (0.84-5.20); LYMPHOCYTES PERCENT MAN 92 % (21-46); MONOCYTES PERCENT MAN 0 % (4-13); SEG NEUTROPHILS PERCENT MAN 8 % (41-73); TOTAL CELLS COUNTED 100
[2021-12-10 10:42] LABS: Percent Saturation 18.9 % (20.0-50.0)
--- NOTE | 2021-12-10 18:28 | NUR ---
ASSUMED CARE OF PT AT 0700 FROM UNA DAVIS. PT MET WITH PALLIATIVE CARE AND CARE MANAGEMENT TODAY TO DISCUSS ADVANCED CARE PLANNING, SEE NOTES FROM EACH DISIPLINE. PHYSICAL THERAPY WORKED WITH PT, PT WAS ABLE TO STAND AT THE SIDE OF THE BED BRIEFLY WITH THE HELP OF 2 STAFF. SUPRAPUBIC CATHETER AND DRAINAGE BAG CHANGED. PT HAD EPISODE OF SOB X 1, ALLEVIATED WITH A BREATHING TX. PT HAD PERIODS OF CONFUSION NOTED T/O THE DAY, EASILY REDIRECTABLE, PLEASANT AND COOPERATIVE. PT RESTING COMFORATBLY AT THIS TIME, WILL CONTINUE TO MONITOR AND GIVE REPORT TO ONCOMING NOC SHIFT RN.
[2021-12-11 04:12] LABS: Hematocrit 35.5 % (37.0-53.0); Hemoglobin 10.1 g/dL (13.5-17.5); Mean Corpuscular HGB 27.1 pg (26.0-34.0); Mean Corpuscular HGB Conc 28.5 g/dL (31.5-36.5); Mean Corpuscular Volume 95 fL (80-100); Mean Platelet Volume 11.2 fL (9.1-12.4); Platelet Count 109 K/mm3 (150-400); RDW Coefficient Variation 19.8 % (11.7-14.2); Red Blood Cell Count 3.73 M/mm3 (4.30-5.90)
[2021-12-11 04:23] LABS: White Blood Cell Count 58.29 K/mm3 (4.00-11.30)
[2021-12-11 04:29] LABS: Albumin, Blood 2.6 g/dL (3.4-5.0); Anion Gap 2 mmol/L (6-16); Blood Urea Nitrogen 9 mg/dL (8-24); Bun/Creatinine Ratio 10.6 (12.0-20.0); CO2, Blood 30 mmol/L (21-32); Calcium, Blood 8.3 mg/dL (8.5-10.1); Chloride, Blood 112 mmol/L (98-108); Creatinine, Blood 0.85 mg/dL (0.60-1.20); Glomerular Filtration Rate >60 (60-); Glucose, Blood 155 mg/dL (70-99); Phosphorus, Blood 1.5 mg/dL (2.5-4.9); Potassium, Blood 4.1 mmol/L (3.5-5.5); Sodium, Blood 144 mmol/L (136-145)
--- NOTE | 2021-12-11 05:40 | NUR ---
SHIFT SUMMARY NO ACUTE CHANGES THIS SHIFT. SEE SHIFT ASSESSMENT. PT ALERT, PLEASANTLY CONFUSED. ONE BM THIS SHIFT USING BED KOEHLER. SMALL, SOFT. SUPRAPUBIC CATHETER DRAINING YELLOW URINE TO GRAVITY. PT STATED HE WAS IN PAIN BUT DENIED PAIN MEDICATION. ABX INFUSED THIS SHIFT. PT SLEPT MOST OF NIGHT. CALL LIGHT IN REACH.
--- NOTE | 2021-12-11 11:25 | NUR ---
DURING MORNING MEDICATION PASS AND ASSESSMENT, PT WAS A/O X3, COOPERATIVE AND CALM. ONCE MD ROUNDED PT BECAME FEARFUL THAT DR ACTUALLY MEANT HE IS DYING, PT HYPERVENTILATING, PANICKING, STS HE CAN NOT BREATHE AND ATTEMPTS TO EXIT BED. PT BECOMES VERY AGITATED AND INITIALLY NON-REDIRECTABLE, HE DOES FINALLY ALLOW STAFF TO PUT HIM BACK TO BED APPROPRIATELY. REMAINS ANXIOS HOMOGENIZER OPERATOR IGHT CONSTANTLY
--- NOTE | 2021-12-11 16:59 | NUR ---
SHIFT NOTE PT WITH INTERMITTENT CONFUSION AND ANXIETY T/O THE DAY, PT BECOMES ANXIOUS AND ATTEMPTS TO EXIT THE BED, HE IS VERY AGITATED AND NOT VERY DIRECTABLE PT WAS SAFELY BACK TO BED WITHOUT INCIDENT. PT STS THAT TOLD HIM HE WAS TERMINAL AND WOULD DURING THIS STAY, THEN RN DID NOT WITNESS MD SAYING THAT TO HIM, PT IS EDUCATED BUT DOES NOT AGREE. PT TREATED WITH ATTARAX FOR ANXIETY WHICH PROVIDED GOOD RELIEF. IN THE AFTERNOON PT BEGAN WITH INCREASED SOB, LS MORE COARSE AND WET SOUNDING, DR DAVILA IS CALLED ABOUT CHANGE, NEW ORDERS WERE OBTAINED FOR LASIX. PT WORKED WITH PHYSICAL THERAPY AND OCCUPATIONAL THERAPY TODAY. VSS. AT THE TIME OF THIS NOTE PT FREE OF ANXIETY AND SOB HAS DECREASED.
[2021-12-11] MEDS ORDERED: Ventolin/Prove6.7 GM INH (21:10)
[2021-12-11] MEDS ORDERED: Acetaminophen650 M1 PO (21:11)
[2021-12-11] MEDS ORDERED: Colace100 MG PO (21:16)
[2021-12-11] MEDS ORDERED: GABA100 PO (21:18)
[2021-12-11] MEDS ORDERED: SENN187 PO (21:19)
[2021-12-11] MEDS ORDERED: TRAZ50 PO (21:23)
[2021-12-11] MEDS ORDERED: METO100ER PO (21:25)
[2021-12-11] MEDS ORDERED: POTA10T PO (21:28)
[2021-12-11] MEDS ORDERED: Prinivil10 MG PO (21:28)
[2021-12-11] MEDS ORDERED: CALQUENCE PO (23:08)
[2021-12-12 02:34] LABS: Hematocrit 34.4 % (37.0-53.0); Hemoglobin 9.9 g/dL (13.5-17.5); Mean Corpuscular HGB 27.4 pg (26.0-34.0); Mean Corpuscular HGB Conc 28.8 g/dL (31.5-36.5); Mean Corpuscular Volume 95 fL (80-100); Mean Platelet Volume 11.1 fL (9.1-12.4); Platelet Count 117 K/mm3 (150-400); RDW Coefficient Variation 19.6 % (11.7-14.2); RDW Standard Deviation 67.7 fL (35.1-46.3); Red Blood Cell Count 3.61 M/mm3 (4.30-5.90)
[2021-12-12 02:38] LABS: White Blood Cell Count 59.84 K/mm3 (4.00-11.30)
[2021-12-12 02:56] LABS: Albumin, Blood 2.6 g/dL (3.4-5.0); Anion Gap 5 mmol/L (6-16); Blood Urea Nitrogen 8 mg/dL (8-24); Bun/Creatinine Ratio 9.3 (12.0-20.0); CO2, Blood 32 mmol/L (21-32); Calcium, Blood 7.9 mg/dL (8.5-10.1); Chloride, Blood 107 mmol/L (98-108); Creatinine, Blood 0.86 mg/dL (0.60-1.20); Glomerular Filtration Rate >60 (60-); Glucose, Blood 198 mg/dL (70-99); Phosphorus, Blood 1.5 mg/dL (2.5-4.9); Potassium, Blood 3.6 mmol/L (3.5-5.5); Sodium, Blood 144 mmol/L (136-145)
--- NOTE | 2021-12-12 11:41 | NUR ---
Pt aggitated , confussed and displying air hunger. Awaiting physician consult with Dr Vázquez. Family spoke with care clinician and completed post for comfort measures and dnr. Will follow up with family after dr vázquez speaks with them on prognosis. pt kps score is 50%.
--- NOTE | 2021-12-12 13:17 | NUR ---
REPORT CALLED TO SIDNEY ON MEDICAL FLOOR. WORK OF BREATHING HAS DECREASED ALONG WITH ANXIETY. VSS. GOOD URINE OUTPUT POST LASIX ADMINISTRATION. LS SOUNDS ARE LESS COARSE POST LASIX ADMINISTRATION. PT DOES STILL REQUIRE SOME REASSURANCE AND ANXIETY HAS BEEN GREATLY DECREASED. HE APPEARS TO BE RESTING WELL IN BED. SEE REASSESSMENTS ON RESPIRATORY.
--- NOTE | 2021-12-12 14:58 | NUR ---
Patient arrived from pcu at [facility]. He is still running potassium phosphate at ml/hr, soduim cloride as well tko. Patient states tail bone is sore. calazime was applied. SP was cleaned and drain dressing applied. Vital signs are good, wnl and oxygen is 98% on 4 L NC. Patient states some anxiety is starting and would like to keep door open.
--- NOTE | 2021-12-12 17:30 | NUR ---
Patient came to to medical today. He asked this telegraphic typewriter repairer to talk with his brother Kanu (Naif) to update him. I was able to speak with Naif, who stated that the this patient has a couple people who are identifying as family and making decisions, but they are not family and have no legal responsibility. They are listed in the chart as mildred and Cecilio Trinyservando. Mickey last name is not Josiah according to Naif Rahman (brother). aNif states that mildred and cecilio are living with and living off of our patient eladia. Naif states that Eladia has a son named Jonathan Rahman phone number [phone]- and he has some kind of legal representation for the patient. We do not have Jonathan in the patients chart. Social workers updated and they will work on this tomorrow. (Also, a side note- Naif was not aware of a family meeting regarding hospice and stated that mildred and cecilio are already under some type of investigation. as LAB SUPPORT SERVICE TECH transfer today, the LAB SUPPORT SERVICE TECH nurse did report concerns about care he was receiveing before admit-SP cath tubing and site with thick crust, uncleaned and layers of sticky peeling goop wiping off of patient chest.)
--- NOTE | 2021-12-13 02:52 | NUR ---
PHYSICIAN COMMUNICATION CONTACTED DR WATTERS TO NOTIFY HER THAT THE PATIENT REPORTED FEELING VERY ANXIOUS. RELAYED WHAT THE PATIENT IS CURRENTLY PRESCRIBED FOR ANXIETY AND WHEN HE HAD IT LAST. DR WATTERS ORDERED 5 MG MELATONIN PO NOW TO SEE IF HELPING THE PATIENT GET SOME REST WILL ASSIST IN EASING HIS ANXIETY.
[2021-12-13 04:51] LABS: Hemoglobin 9.8 g/dL (13.5-17.5); Mean Corpuscular HGB 27.1 pg (26.0-34.0); Mean Corpuscular HGB Conc 28.8 g/dL (31.5-36.5); Mean Corpuscular Volume 94 fL (80-100); Mean Platelet Volume 11.2 fL (9.1-12.4); Platelet Count 123 K/mm3 (150-400); RDW Coefficient Variation 19.7 % (11.7-14.2); RDW Standard Deviation 67.9 fL (35.1-46.3); Red Blood Cell Count 3.62 M/mm3 (4.30-5.90)
[2021-12-13 05:09] LABS: White Blood Cell Count 61.12 K/mm3 (4.00-11.30)
[2021-12-13 05:20] LABS: Albumin, Blood 2.6 g/dL (3.4-5.0); Anion Gap 3 mmol/L (6-16); Blood Urea Nitrogen 6 mg/dL (8-24); Bun/Creatinine Ratio 6.6 (12.0-20.0); CO2, Blood 33 mmol/L (21-32); Calcium, Blood 7.9 mg/dL (8.5-10.1); Chloride, Blood 107 mmol/L (98-108); Creatinine, Blood 0.91 mg/dL (0.60-1.20); Glomerular Filtration Rate >60 (60-); Glucose, Blood 139 mg/dL (70-99); Phosphorus, Blood 1.8 mg/dL (2.5-4.9); Sodium, Blood 143 mmol/L (136-145)
--- NOTE | 2021-12-13 06:09 | NUR ---
SHIFT SUMMARY PATIENT ALERT AND ORIENTED X3. MEDICATED PER EMAR FOR PAIN, SLEEP, AND ANXIETY. TREATED PER RT FOR SHORTNESS OF BREATH. NO ACUTE ISSUES NOTED OVERNIGHT. CALL LIGHT WITHIN REACH. REPORT GIVEN TO ONCOMING RN.
--- NOTE | 2021-12-13 17:55 | NUR ---
Review of pt with partnership marketing manager. POLST removed by urgent care nurse practitioner and danielle out for apd review. will follow up on his care needs and leagal needs with urgent care nurse practitioner.
[2021-12-14] MEDS ORDERED: ACALABRUTINIB PO (04:40)
[2021-12-14] MEDS ORDERED: PERIDEX15 ML MT (04:51)
[2021-12-14] MEDS ORDERED: DIGOX125 MC1 PO (04:51)
[2021-12-14] MEDS ORDERED: FLONASE ALLERG9.9 M2 (04:53)
[2021-12-14] MEDS ORDERED: MULTI-VITAMIN1 EAC2 PO (04:55)
--- NOTE | 2021-12-14 06:48 | NUR ---
SHIFT SUMMARY PT IS A 76 Y/O MALE, ADMITTED FOR HYPOTENSION. HE IS A&O X 3, FORGETFUL AT TIMES, VERY ANXIOUS AND CALLS FREQUENTLY WHILE AWAKE. CURRENTLY ON 4L O2 VIA NC, SATTING > 90%. VITAL SIGNS STABLE. SUPRAPUBIC CATHETER IN PLACE, DRAINING DARK URINE. HE WAS MEDICATED FOR LOWER BACK PAIN WITH PRN TYLENOL. NO C/O NAUSEA, THOUGH PT DID REPORT INTERMITTENT SOB WHEN ANXIOUS. NO OTHER ACUTE CHANGES IN PT CONDITION NOTED DURING THE NIGHT. WILL CONTINUE TO MONITOR AND TREAT PER EMAR UNTIL HAND OFF TO DAY SHIFT RN.
[2021-12-14 18:48] LABS: Hematocrit 37.3 % (37.0-53.0); Hemoglobin 10.4 g/dL (13.5-17.5); Mean Corpuscular HGB 26.9 pg (26.0-34.0); Mean Corpuscular HGB Conc 27.9 g/dL (31.5-36.5); Mean Corpuscular Volume 97 fL (80-100); Mean Platelet Volume 11.4 fL (9.1-12.4); Platelet Count 144 K/mm3 (150-400); RDW Coefficient Variation 19.9 % (11.7-14.2); Red Blood Cell Count 3.86 M/mm3 (4.30-5.90)
[2021-12-14 18:52] LABS: White Blood Cell Count 71.03 K/mm3 (4.00-11.30)
[2021-12-14 19:01] LABS: International Normalized Ratio 1.35; Prothrombin Time Results 13.9 Sec (9.7-11.5)
[2021-12-14 19:14] LABS: Alanine Aminotransfer (ALT/SGP 13 U/L (12-78); Albumin, Blood 2.9 g/dL (3.4-5.0); Albumin/Globulin Ratio 0.9 (0.8-1.8); Alk Phos 103 U/L (50-136); Anion Gap Unable to Calculate mmol/L (6-16); Aspartate Aminotrans (AST/SGOT 17 U/L (12-37); Bilirubin, Total 0.5 mg/dL (0.1-1.0); Blood Urea Nitrogen 7 mg/dL (8-24); Bun/Creatinine Ratio 8.5 (12.0-20.0); CO2, Blood 37 mmol/L (21-32); Calcium, Blood 8.5 mg/dL (8.5-10.1); Chloride, Blood 105 mmol/L (98-108); Creatinine, Blood 0.83 mg/dL (0.60-1.20); Globulin, Blood 3.4 g/dL (2.2-4.0); Glomerular Filtration Rate >60 (60-); Glucose, Blood 163 mg/dL (70-99); Potassium, Blood 3.9 mmol/L (3.5-5.5); Sodium, Blood 141 mmol/L (136-145); Total Protein, Blood 6.3 g/dL (6.4-8.2)
--- NOTE | 2021-12-14 19:45 | NUR ---
SHIFT SUMMARY: PT DEVELOPED A NOSE BLEED OUT OF RIGHT NOSTRIL WHICH WOULD NOT STOP BLEEDING DESPITE APPLYING PRESSURE FOR SEVERAL MINUTES, APPLYING HUMIDIFIED O2, HAVING PT LEAN FORWARD APPLYING PRESSURE. MEDICATIONS ADMINISTERED PER MD ORDERS AND NOSE BLEED CONTINUED. DR. TO CAME UP AND INSERTED RHINO ROCKET INTO R NOSTRIL. PT TOLERATED WELL AND ONE HOUR POST PROCEDURE PT DID NOT HAVE SYMPTOMS OF BLEEDING. LAB DRAW COMPLETED POST PROCEDURE. WBC CONTINUES TO BE CHRONICALLY HIGH. NO ACUTE CONCERNS WITH LAB RESULTS. PT XARELTO HELD PER MD REQUEST. REPORTED OFF TO ONCOMING RN AND RHINO ROCKET IN PLACE AT SHIFT END.
[2021-12-14 20:19] LABS: BASOPHILS PERCENT MAN 0 % (0-2); EOSINOPHILS PERCENT MAN 0 % (0-6); LYMPHOCYTES ABSOLUTE MAN 64.63 K/mm3 (0.84-5.20); LYMPHOCYTES PERCENT MAN 91 % (21-46); MONOCYTES PERCENT MAN 0 % (4-13); NEUTROPHILS ABSOLUTE MAN 6.39 K/mm3 (1.96-9.15); SEG NEUTROPHILS PERCENT MAN 9 % (41-73); TOTAL CELLS COUNTED 100
[2021-12-15 05:01] LABS: Hematocrit 34.3 % (37.0-53.0); Hemoglobin 9.8 g/dL (13.5-17.5); Mean Corpuscular HGB 27.2 pg (26.0-34.0); Mean Corpuscular HGB Conc 28.6 g/dL (31.5-36.5); Mean Corpuscular Volume 95 fL (80-100); Platelet Count 133 K/mm3 (150-400); RDW Coefficient Variation 19.7 % (11.7-14.2); RDW Standard Deviation 68.8 fL (35.1-46.3)
[2021-12-15 05:12] LABS: White Blood Cell Count 58.31 K/mm3 (4.00-11.30)
[2021-12-15 05:18] LABS: Alanine Aminotransfer (ALT/SGP 11 U/L (12-78); Albumin, Blood 2.6 g/dL (3.4-5.0); Albumin/Globulin Ratio 0.8 (0.8-1.8); Alk Phos 95 U/L (50-136); Anion Gap 3 mmol/L (6-16); Aspartate Aminotrans (AST/SGOT 18 U/L (12-37); Bilirubin, Total 0.5 mg/dL (0.1-1.0); Blood Urea Nitrogen 7 mg/dL (8-24); Bun/Creatinine Ratio 7.9 (12.0-20.0); CO2, Blood 33 mmol/L (21-32); Calcium, Blood 8.4 mg/dL (8.5-10.1); Chloride, Blood 107 mmol/L (98-108); Creatinine, Blood 0.88 mg/dL (0.60-1.20); Globulin, Blood 3.2 g/dL (2.2-4.0); Glomerular Filtration Rate >60 (60-); Glucose, Blood 124 mg/dL (70-99); Phosphorus, Blood 1.9 mg/dL (2.5-4.9); Potassium, Blood 4.2 mmol/L (3.5-5.5); Sodium, Blood 143 mmol/L (136-145); Total Protein, Blood 5.8 g/dL (6.4-8.2)
[2021-12-15 06:16] LABS: BASOPHILS ABSOLUTE MAN 0.58 K/mm3 (0.00-0.23); BASOPHILS PERCENT MAN 1 % (0-2); EOSINOPHILS ABSOLUTE MAN 0.58 K/mm3 (0.00-0.68); EOSINOPHILS PERCENT MAN 1 % (0-6); LYMPHOCYTES ABSOLUTE MAN 51.89 K/mm3 (0.84-5.20); LYMPHOCYTES PERCENT MAN 89 % (21-46); MONOCYTES ABSOLUTE MAN 0.58 K/mm3 (0.16-1.47); MONOCYTES PERCENT MAN 1 % (4-13); NEUTROPHILS ABSOLUTE MAN 4.66 K/mm3 (1.96-9.15); SEG NEUTROPHILS PERCENT MAN 8 % (41-73); TOTAL CELLS COUNTED 100
--- NOTE | 2021-12-15 06:16 | NUR ---
SHIFT SUMMARY PT IS A 76 Y/O MALE, ADMITTED FOR HYPOTENSION. HE IS A&O X 3, VERY ANXIOUS WITH LABILE MOODS. HEAVY 1-2PA C FWW BETWEEN BED AND CHAIR. SUPRAPUBIC CATHETER IN PLACE, DRAINING YELLOW URINE. PT WAS MEDICATED ONCE FOR HEADACHE WITH PRN TYLENOL. RHINO ROCKET REMAINS IN PLACE AFTER NOSEBLEED YESTERDAY EVENING, WITH NO FURTHER BLEEDING NOTED FROM THE NOSE. PT REPORTS HE IS NO LONGER COUGHING UP OR SPITTING UP BLOOD. VITAL SIGNS STABLE. NO OTHER ACUTE CHANGES IN PT CONDITION. NO OTHER ACUTE CHANGES IN PT CONDITION NOTED. WILL CONTINUE TO MONITOR AND TREAT PER EMAR UNTIL HAND OFF TO DAY SHIFT RN.
[2021-12-15 14:30] LABS: Albumin, Body Fluid 1.2 g/dL
[2021-12-15 14:39] LABS: Glucose, Body Fluid 158 mg/dL; Lactate Dehydrogenase, Body Fl 160 U/L; Protein, Body Fluid 2.3 g/dL
[2021-12-15 15:03] LABS: Automated BF RBC Count 0.534 M/mm3 (0-0); Automated BF WBC Count 4.771 K/mm3 (0-999); Body Fluid WBC Count 4771 /mm3 (0-999); RBC Count, Body Fluid 534000 /mm3 (0-0)
[2021-12-15 15:32] LABS: pH, Body Fluid 7.9
[2021-12-15 18:02] LABS: Total Cell Count, Body Fluid 100
[2021-12-15 18:03] LABS: Appearance, Body Fluid Bloody (Clear); Color, Body Fluid Red (None-Yellow)
--- NOTE | 2021-12-15 19:13 | NUR ---
SHIFT SUMMARY: PT A/O X 4 ONE PERSON ASSIST WITH GB AND WALKER. PLEASANT AND COOPERATIVE WITH CARES. A BIT ANXIOUS TODAY BUT MANAGED WITH THERAPEUTIC COMMUNICATION AND EXPLANATION OF PROCEDURES. PT HAD THORACENTESIS TODAY WITH 1200 ML REMOVED FROM R SIDE. PUNCTURE SITE HAS NO SIGNS OF REDNESS. O2 SATS NOW AT 94% ON RA. PT LESS ANXIOUS POST PROCEDURE. RHINO ROCKET CONTINUES TO BE IN PLACE IN R NOSTRIL. NO SIGNS OF BLEEDING FROM NOSE AT THIS TIME. PT DID HAVE SOME SMALL RED STREAKS OF RED BLOOD IN SPUTUM WHEN HE COUGHED UP SPUTUM. SPUTUM HAS TURNED FROM DARK YELLOW COLOR TO LIGHT YELLOW/CLEAR AND LESS THICK AND TENACIOUS. PT C/O OF TOOTHACE IN LOWER FRONT JAW AREA. HE HAS A COUPLE TEETH MISSING. NO REDNESS OR SWELLING OBSERVED. TYLENOL GIVEN FOR REPORTED PAIN. REDNESS TO GROIN AND BOTTOM IMPROVING.
--- NOTE | 2021-12-16 06:32 | NUR ---
SHIFT SUMMARY PT IS A 76 Y/O MALE, ADMITTED FOR HYPOTENTSION. PT IS A&O X 2-3, VERY ANXIOUS. 1-2PA C FWW. PT CURRENTLY ON 2L VIA NC IN HIS MOUTH, SATTING > 90%. VITAL SIGNS STABLE. RHINO ROCKET REMAINED IN PLACE, NO FURTHER BLEEDING NOTED. PT MEDICATED ONCE FOR CHRONIC BACK PAIN WITH PRN TYLENOL. NO C/O NAUSEA. PT SLEPT WELL THROUGH THE NIGHT. NO ACUTE CHANGES IN PT CONDITION NOTED. WILL CONTINUE TO MONITOR AND TREAT PER EMAR UNTIL HAND OFF TO DAY SHIFT RN.
[2021-12-16 06:33] LABS: Hemoglobin 10.5 g/dL (13.5-17.5); Mean Corpuscular HGB 27.3 pg (26.0-34.0); Mean Corpuscular HGB Conc 28.4 g/dL (31.5-36.5); Mean Corpuscular Volume 96 fL (80-100); Mean Platelet Volume 10.9 fL (9.1-12.4); Platelet Count 147 K/mm3 (150-400); RDW Coefficient Variation 19.6 % (11.7-14.2); RDW Standard Deviation 68.5 fL (35.1-46.3); Red Blood Cell Count 3.85 M/mm3 (4.30-5.90)
[2021-12-16 06:41] LABS: White Blood Cell Count 73.81 K/mm3 (4.00-11.30)
[2021-12-16 06:45] LABS: Albumin, Blood 2.6 g/dL (3.4-5.0); Anion Gap 3 mmol/L (6-16); Blood Urea Nitrogen 6 mg/dL (8-24); Bun/Creatinine Ratio 7.2 (12.0-20.0); CO2, Blood 34 mmol/L (21-32); Calcium, Blood 8.2 mg/dL (8.5-10.1); Chloride, Blood 106 mmol/L (98-108); Creatinine, Blood 0.83 mg/dL (0.60-1.20); Glomerular Filtration Rate >60 (60-); Glucose, Blood 143 mg/dL (70-99); Phosphorus, Blood 1.9 mg/dL (2.5-4.9); Potassium, Blood 3.8 mmol/L (3.5-5.5); Sodium, Blood 143 mmol/L (136-145)
[2021-12-16 07:32] LABS: BASOPHILS PERCENT MAN 0 % (0-2); EOSINOPHILS ABSOLUTE MAN 0.73 K/mm3 (0.00-0.68); EOSINOPHILS PERCENT MAN 1 % (0-6); LYMPHOCYTES ABSOLUTE MAN 64.21 K/mm3 (0.84-5.20); LYMPHOCYTES PERCENT MAN 87 % (21-46); MONOCYTES ABSOLUTE MAN 0.73 K/mm3 (0.16-1.47); MONOCYTES PERCENT MAN 1 % (4-13); NEUTROPHILS ABSOLUTE MAN 8.11 K/mm3 (1.96-9.15); SEG NEUTROPHILS PERCENT MAN 11 % (41-73); TOTAL CELLS COUNTED 100
--- NOTE | 2021-12-16 15:14 | NUR ---
IV IN RFA PLACED BY MAHAD DAVIS.
--- NOTE | 2021-12-16 18:44 | NUR ---
SHIFT SUMMARY: PT A/O X 4 ONE PERSON ASSIST WITH GAIT BELT AND WALKER. PLEASANT AND COOPERATIVE WITH CARE. PT ON 2 LP VIA NC, BUT DOES WELL WITHOUT O2 ALSO WITH SATS THIS AFTERNOON AT 98%. PT CONTINUES TO HAVE RHINO ROCKET PLACED IN R NOSTRIL. PT DID NOT HAVE BLOOD IN SPUTUM TODAY WHEN HE COUGHED IT UP. COLOR WAS BRIGHT DARK YELLOW. LISE DID NOT C/O PAIN. LS WERE VERY COARSE T/OUT. R PUNCTURE THORACENTESIS SITE HAD NO S/S OF INFECTION. PT DID NOT C/O ANXIETY OR HAVE S/S OF SOB. PT DID C/O BEING EXHAUSTED "FROM LACK OF SLEEP THE PAST FEW DAYS". LISE RESTED MOST OF THE DAY WITH EYES SHUT RR E/U. HE DID AWAKEN EASILY TO VERBAL STIMULI AND ANSWERED QUESTIONS APROPRIATELY. SKIN IN GROIN AREA AND BOTTOM IS STILL RED, BUT IMPROVING WITH NYSTATIN CREAM. BOTTOM STILL EXCORIATED BUT MUCH IMPROVED. PT IS NO LONGER C/O BURNING ON HIS BOTTOM FROM OPEN SKN AREAS.
[2021-12-16 22:04] LABS: Vancomycin, Trough 18.8 ug/mL (5.0-10.0)
[2021-12-17 04:41] LABS: EOSINOPHILS ABSOLUTE AUTO 0.17 K/mm3 (0.00-0.68); EOSINOPHILS PERCENT AUTO 0 % (0-6); Hematocrit 33.6 % (37.0-53.0); Hemoglobin 9.5 g/dL (13.5-17.5); Mean Corpuscular HGB 27.5 pg (26.0-34.0); Mean Corpuscular HGB Conc 28.3 g/dL (31.5-36.5); Mean Corpuscular Volume 97 fL (80-100); Mean Platelet Volume 11.1 fL (9.1-12.4); Platelet Count 139 K/mm3 (150-400); RDW Coefficient Variation 19.7 % (11.7-14.2); RDW Standard Deviation 69.3 fL (35.1-46.3); Red Blood Cell Count 3.45 M/mm3 (4.30-5.90)
[2021-12-17 04:50] LABS: BASOPHILS ABSOLUTE AUTO 0.08 K/mm3 (0.00-0.23); BASOPHILS PERCENT AUTO 0 % (0-2); IMMATURE GRAN ABSOLUTE AUTO 0.08 K/mm3 (0.00-0.10); IMMATURE GRAN PERCENT AUTO 0 % (0-1); LYMPHOCYTES ABSOLUTE AUTO 49.46 K/mm3 (0.84-5.20); LYMPHOCYTES PERCENT AUTO 89 % (21-46); MONOCYTES ABSOLUTE AUTO 1.46 K/mm3 (0.16-1.47); MONOCYTES PERCENT AUTO 3 % (4-13); NEUTROPHILS ABSOLUTE AUTO 4.41 K/mm3 (1.96-9.15); NEUTROPHILS PERCENT AUTO 8 % (41-73)
[2021-12-17 04:51] LABS: White Blood Cell Count 55.66 K/mm3 (4.00-11.30)
--- NOTE | 2021-12-17 05:11 | NUR ---
PM SHIFT SUMMARY PATIENT WAS QUITE AGITATED AT THE START OF SHIFT. HE SEEMS CONFUSAED TO WHY HE IS HERE, AND STATES IT IS BECAUSE OF A NOSE BLEED. I EXPLAINED HE HAS ONLY HAD THE RHINO ROCKET IN FOR LESS THAN 2 DAYS BASED ON NOTES, BUT HE CONTINUED TO ARGUE. HE PER CHARGE NURSE, PLAN IS TO REMOVED ROCKET TODAY. PICHARDO IS PATENT AND DRAINING URINE EFFECTIVELY. WBC COUNT THIS MORNING WAS A 55.66, WHICH IS DOWN FROM A 73.81 . PATIENT GIVEN PRN MED FOR ANXIETY, WHICH HELPED HIM GET SOME SLEEP THIS EVENING. REDNESS AND EXCORIATION TO BOTTOM; MEPILEX PLACED DURING MY SHIFT.
[2021-12-17 05:16] LABS: Albumin, Blood 2.3 g/dL (3.4-5.0); Anion Gap 3 mmol/L (6-16); Blood Urea Nitrogen 6 mg/dL (8-24); Bun/Creatinine Ratio 6.8 (12.0-20.0); CO2, Blood 33 mmol/L (21-32); Calcium, Blood 7.8 mg/dL (8.5-10.1); Chloride, Blood 107 mmol/L (98-108); Creatinine, Blood 0.88 mg/dL (0.60-1.20); Glomerular Filtration Rate >60 (60-); Glucose, Blood 146 mg/dL (70-99); Phosphorus, Blood 2.5 mg/dL (2.5-4.9); Potassium, Blood 3.6 mmol/L (3.5-5.5); Sodium, Blood 143 mmol/L (136-145)
--- NOTE | 2021-12-17 16:21 | NUR ---
REMOVED PT'S RHINO ROCKET PER DR ORDER AFTER CHECKING LABS AND VERIFYING IT HAS BEEN IN 48 HRS. PT TOLERATED WELL AND NO NEW BLEEDING NOTED. WILL CONTINUE TO MONITOR.
[2021-12-17 16:52] LABS: Vancomycin, Trough 18.3 ug/mL (5.0-10.0)
--- NOTE | 2021-12-17 18:18 | NUR ---
SHIFT SUMMARY PT PLEASENT AT TIMES AND IRRITABLE AT OTHERS. A/O X2-3. UNABLE TO REDIRECT WHEN HE IS UPSET. TALKS TO HIMSELF IN ROOM. STATED THERE WAS A LEPRECHAUN IN ROOM WITH A RED HAT. UP TO CHAIR AND BSC WITH 1/2 ASSIST AND WALKER. REPOSITIONED FREQUENTLY IN BED. ON 4L NC WITH CONTINUOUS SPO2 MONITORING. CALL LIGHT IN REACH AND BED ALARM IN PLACE.
--- NOTE | 2021-12-17 18:41 | NUR ---
PLEASE REFER TO STUDENT NOTES FOR SHIFT SUMMARY. THIS TRUSTEE OF ESTATE HAS REVIEWED ALL NOTES AND ASSESSMENTS AND AGREES WITH THEM.
--- NOTE | 2021-12-17 21:30 | NUR ---
REFUSED CARE PT REFUSED BLOOD SUGAR CHECK. MULTIPLE ATTEMPTS MADE TO TAKE TEST BUT PT STATED "TAKING ONE UNIT OF INSULIN DOESNT MAKE ME A DIABETIC. LOOK AT MY HANDS, I DONT NEED TO BE POKED ANYMORE". CHARGE NURSE MADE AWARE.
[2021-12-18 06:05] LABS: Hematocrit 34.9 % (37.0-53.0); Hemoglobin 9.8 g/dL (13.5-17.5); Mean Corpuscular HGB 27.5 pg (26.0-34.0); Mean Corpuscular HGB Conc 28.1 g/dL (31.5-36.5); Mean Corpuscular Volume 98 fL (80-100); Mean Platelet Volume 11.4 fL (9.1-12.4); Platelet Count 146 K/mm3 (150-400); RDW Coefficient Variation 19.5 % (11.7-14.2); RDW Standard Deviation 68.9 fL (35.1-46.3); Red Blood Cell Count 3.56 M/mm3 (4.30-5.90)
[2021-12-18 06:07] LABS: White Blood Cell Count 58.28 K/mm3 (4.00-11.30)
--- NOTE | 2021-12-18 06:18 | NUR ---
SHIFT SUMMARY ASSUMED CARE OF PT AT 1900. PT IS A/OX3. HEART SOUNDS REGULAR. LUNG SOUNDS COURSE. PT DID NOT NEED O2 AT THE START OF SHIFT, REMAINING ABOVE 94% ON RA, BUT DESATURATED DURING THE NIGHT AND USED 4L NC. ONCE AWAKE, PT O2 WAS ABOVE 95% ON RA. PT TAKES OFF OXYGEN DUE TO IT BEING PAINFUL ON HIS EARS. PT WAS INCONTIENT OF STOOL. PT HAS A SUPRAPUBIC CATHETER. PT BP REMAINED SOFT. DISCUSSED CARE WITH NOC HOSPITALIST, WHO REVEIWED CHART AND STATED TO MONITOR PT. NEW MEPILEX APPLIED TO PT BOTTOM, AREA DISCOLORED BUT NO BROKEN SKIN, MEPILEX CHANGED. PT MOOD IS LAIBILE. FOR EXAMPLE, WHEN TAKING O2 TUBING OFF EARS, PT STATED "IF YOU DO THAT AGAIN IM GOING TO SLAP YOU" BUT THIS AM BUT IS TALKING ABOUT HIS PAST AND MAKING JOKES WITH STAFF.
[2021-12-18 06:23] LABS: Albumin, Blood 2.5 g/dL (3.4-5.0); Anion Gap 1 mmol/L (6-16); Blood Urea Nitrogen 10 mg/dL (8-24); Bun/Creatinine Ratio 10.4 (12.0-20.0); CO2, Blood 34 mmol/L (21-32); Calcium, Blood 8.4 mg/dL (8.5-10.1); Chloride, Blood 107 mmol/L (98-108); Creatinine, Blood 0.97 mg/dL (0.60-1.20); Glomerular Filtration Rate >60 (60-); Glucose, Blood 134 mg/dL (70-99); Phosphorus, Blood 2.6 mg/dL (2.5-4.9); Potassium, Blood 4.2 mmol/L (3.5-5.5); Sodium, Blood 142 mmol/L (136-145)
[2021-12-18 07:06] LABS: BASOPHILS PERCENT MAN 0 % (0-2); EOSINOPHILS ABSOLUTE MAN 0.58 K/mm3 (0.00-0.68); EOSINOPHILS PERCENT MAN 1 % (0-6); LYMPHOCYTES ABSOLUTE MAN 51.28 K/mm3 (0.84-5.20); LYMPHOCYTES PERCENT MAN 88 % (21-46); MONOCYTES ABSOLUTE MAN 0.58 K/mm3 (0.16-1.47); MONOCYTES PERCENT MAN 1 % (4-13); NEUTROPHILS ABSOLUTE MAN 5.82 K/mm3 (1.96-9.15); SEG NEUTROPHILS PERCENT MAN 10 % (41-73); TOTAL CELLS COUNTED 100
--- NOTE | 2021-12-18 12:28 | NUR ---
RN NOTE MR SEBASTIAN IS SITTING UP IN CHAIR, DOING SOME LEG EXERCISES, GOT UP WITH PHYSICAL THERAPY. HE ALTERNATES BETWEEN BEING JOKEY WITH ME AND BEING IRRITABLE. C/O CHRONIC BACK PAIN WHEN ASKED AND TENDERNESS TO SCROTUM AND SACRUM. MOVING WELL OFF BUTTOCKS TO RELIEVE PRESSURE. CALL LIGHT IN REACH.
--- NOTE | 2021-12-18 19:00 | NUR ---
SHIFT SUMMARY MR SEBASTIAN IS A&OX4, SOMETIMES ANGRY/IRRITATED/ANXIOUS, BUT CAN BE TALKED THROUGH THESE EPISODES. WEANED FROM 5L THIS AM TO 3LNC TODAY, MAINTAINING SATS IN THE 90S. MOIST PRODUCTIVE COUGH. MOVING IN THE BED WITH ASSISTANCE, DOING BED EXERCISES, HAS SAT OUT IN THE CHAIR, WELL ENGAGED IN HIS REHAB EXERCISES. INCONT OF STOOL. SUPRAPUBIC CATHETER DRAINING CLEAR YELLOW URINE. VERY EXCORIATED AREA AROUND COXXYC AND GROIN. CLEANED, TURNED. NYSTATIN APPLIED ORDERED. BED LOW, CALL LIGHT IN REACH.
--- NOTE | 2021-12-19 03:08 | NUR ---
SHIFT SUMMARY 76 YR M ADMITTED ON 12/09/21 FOR PNEUMONIA AND HYPOTENTION. DNR. PT WAS VERY ANXIOUS FOR THE FIRST PART OF THIS SHIFT. HE COMPLAINED MULTIPLE TIMES THAT HE COULDN'T BREATHE, BUT HIS SATS WERE IN THE MID TO HIGH 90'S. HE FELT BETTER WHEN HE SAT STRAIGHT UP, BUT STILL HAD ALOT OF ANXIETY ABOUT HIS MEDICAL ISSUES IN GENERAL. HE STATED SEVERAL TIMES THAT HE "JUST WANTED TO CRY". HE C/O PAIN IN HIS RIGHT LOWER LUNG UPON INHALATION SO HOSPITALIST WAS NOTIFIED AND FENTYNL WAS RX'D. THIS ALLOWED THE PT TO RELAX AND FINALLY FALL ASLEEP.
[2021-12-19 05:07] LABS: Hematocrit 32.4 % (37.0-53.0); Hemoglobin 9.3 g/dL (13.5-17.5); Mean Corpuscular HGB 27.9 pg (26.0-34.0); Mean Corpuscular HGB Conc 28.7 g/dL (31.5-36.5); Mean Corpuscular Volume 97 fL (80-100); Mean Platelet Volume 10.8 fL (9.1-12.4); Platelet Count 133 K/mm3 (150-400); RDW Coefficient Variation 19.4 % (11.7-14.2); RDW Standard Deviation 68.9 fL (35.1-46.3); Red Blood Cell Count 3.33 M/mm3 (4.30-5.90)
[2021-12-19 05:11] LABS: White Blood Cell Count 56.52 K/mm3 (4.00-11.30)
[2021-12-19 05:29] LABS: Albumin, Blood 2.4 g/dL (3.4-5.0); Anion Gap 4 mmol/L (6-16); Blood Urea Nitrogen 10 mg/dL (8-24); CO2, Blood 33 mmol/L (21-32); Calcium, Blood 8.2 mg/dL (8.5-10.1); Chloride, Blood 105 mmol/L (98-108); Creatinine, Blood 0.91 mg/dL (0.60-1.20); Glomerular Filtration Rate >60 (60-); Glucose, Blood 124 mg/dL (70-99); Phosphorus, Blood 2.5 mg/dL (2.5-4.9); Potassium, Blood 3.9 mmol/L (3.5-5.5); Sodium, Blood 142 mmol/L (136-145)
[2021-12-19 06:13] LABS: BASOPHILS PERCENT MAN 0 % (0-2); EOSINOPHILS PERCENT MAN 0 % (0-6); LYMPHOCYTES ABSOLUTE MAN 50.86 K/mm3 (0.84-5.20); LYMPHOCYTES PERCENT MAN 90 % (21-46); MONOCYTES ABSOLUTE MAN 1.13 K/mm3 (0.16-1.47); MONOCYTES PERCENT MAN 2 % (4-13); NEUTROPHILS ABSOLUTE MAN 4.52 K/mm3 (1.96-9.15); SEG NEUTROPHILS PERCENT MAN 8 % (41-73); TOTAL CELLS COUNTED 100
--- NOTE | 2021-12-19 12:55 | NUR ---
12/19/21 XRAY: XRAY REPORT IS BACK AND IS SHOWING POSSIBLE PNEUMONIA AND EFFUSIONS. PATIENT DOES FEEL SOB, AND ANXIOUS. HE WAS GIVEN A ATARAX. UNYSIN IS RUNNING AT THIS TIME. HE IS EATING LUNCH-DURING LUNCH WHILE COUGHING BECUASE OF SWALLOWING WRONG, HE IS COUGHING YELLOW THICK SPUTUM.
--- NOTE | 2021-12-19 15:21 | NUR ---
PATIENT BEGAN HAVING CHEST PAIN LAST NOC SHIFT. NOC SHIFT WAS RELIEVING PAIN WITH FETENYL. THIS AM, DR. MCDONALD WAS CONTACTED AND SHE CAME TO ASSESS. D DIMER AND CHEST XRAY WERE ORDERED. BOTH ABNORMAL. XERALTO WAS ORDERED TO BEGIN THIS EVENING. LASIX WAS CHANGED TO IV BID, AND FIRST DOSE WAS GIVEN AFTER EARLY THIS AFTERNOON. IMPORTANT TO NOTE THAT PATIENT COMPLAINED OF RIGHT SIDED CHEST PAIN EARLIER, BUT THIS AFTERNOON STATES IT IS LEFT SIDED-OPPOSITE OF HEART WHICH MAY RELFECT THE POSSIBLE PNEUMONIA/EFFUSIONS IN LUNGS RATHER THAN HEART PAIN.
[2021-12-19 23:14] LABS: Vancomycin, Trough 21.4 ug/mL (5.0-10.0)
--- NOTE | 2021-12-20 04:51 | NUR ---
SHIFT SUMMARY 76 YR M ADMITTED ON 12/09/21 FOR HYPOTENSIVE PNEUMONIA. DNR. NO ACUTE CHANGES THIS SHIFT. PT DID NOT C/O CHEST PAIN HE HAD THE NIGHT BEFORE. HE STATED THAT HIS REAR END WAS SORE THOUGH. HE WAS GRUMPY AND INSULTING TO STAFF TRYING TO HELP HIM. HIS MOODS SWING FROM MEAN TO TEARFUL. VITALS ARE STABLE AND O2 SATS ARE GOOD. THIS SHIFT HE DID NOT C/O TROUBLE BREATHING. VANCO TROUGH LEVELS WERE HIGH SO PHARMACY ADJUSTED THE DAILY DOSE OF VANCOMYCIN.
[2021-12-20 06:17] LABS: Hematocrit 33.2 % (37.0-53.0); Hemoglobin 9.5 g/dL (13.5-17.5); Mean Corpuscular HGB 27.7 pg (26.0-34.0); Mean Corpuscular HGB Conc 28.6 g/dL (31.5-36.5); Mean Corpuscular Volume 97 fL (80-100); Mean Platelet Volume 11.7 fL (9.1-12.4); Platelet Count 149 K/mm3 (150-400); RDW Coefficient Variation 19.3 % (11.7-14.2); RDW Standard Deviation 67.9 fL (35.1-46.3); Red Blood Cell Count 3.43 M/mm3 (4.30-5.90)
[2021-12-20 06:22] LABS: White Blood Cell Count 57.05 K/mm3 (4.00-11.30)
[2021-12-20 06:57] LABS: Albumin, Blood 2.4 g/dL (3.4-5.0); Anion Gap 4 mmol/L (6-16); Blood Urea Nitrogen 8 mg/dL (8-24); Bun/Creatinine Ratio 8.9 (12.0-20.0); CO2, Blood 33 mmol/L (21-32); Calcium, Blood 8.4 mg/dL (8.5-10.1); Chloride, Blood 104 mmol/L (98-108); Glomerular Filtration Rate >60 (60-); Glucose, Blood 119 mg/dL (70-99); Phosphorus, Blood 2.7 mg/dL (2.5-4.9); Potassium, Blood 3.8 mmol/L (3.5-5.5); Sodium, Blood 141 mmol/L (136-145)
[2021-12-20 07:41] LABS: BASOPHILS PERCENT MAN 0 % (0-2); EOSINOPHILS PERCENT MAN 0 % (0-6); LYMPHOCYTES ABSOLUTE MAN 49.63 K/mm3 (0.84-5.20); LYMPHOCYTES PERCENT MAN 87 % (21-46); MONOCYTES PERCENT MAN 0 % (4-13); NEUTROPHILS ABSOLUTE MAN 7.41 K/mm3 (1.96-9.15); SEG NEUTROPHILS PERCENT MAN 13 % (41-73); TOTAL CELLS COUNTED 100
--- NOTE | 2021-12-20 09:31 | NUR ---
Late note from 12/19/21. Patient is lying in bed and alert. Patient tells me about his depression, his sense of hopelessness and struggles with the current world events. I provide therapeutic listening, and prayer for [place] and pt to feel God's presence in meaningful ways. I also provide gentle drapery counselor and building of therapeutic alliance. Cherrieasha responds well and welcomes further spiritual care visits. I will continue to remain available to patient and family.
--- NOTE | 2021-12-21 05:44 | NUR ---
SHIFT SUMMARY PATIENT ALERT AND ORIENTED. MEDICATED PER EMAR FOR PAIN. NO ACUTE ISSUES NOTED OVERNIGHT. CALL LIGHT WITHIN REACH. REPORT GIVEN TO ONCOMING RN.
--- NOTE | 2021-12-22 06:14 | NUR ---
SHIFT SUMMARY PATIENT ALERT AND ORIENTED X3. HAD NO COMPLAINTS OF PAIN OR SHORTNESS OF BREATH. NO ACUTE ISSUES NOTED OVERNIGHT. CALL LIGHT WITHIN REACH. REPORT GIVEN TO ONCOMING RN.
[2021-12-22 10:42] LABS: Vancomycin, Trough 14.5 ug/mL (5.0-10.0)
[2021-12-22 16:20] LABS: Hematocrit 33.8 % (37.0-53.0); Hemoglobin 9.7 g/dL (13.5-17.5); Mean Corpuscular HGB 28.2 pg (26.0-34.0); Mean Corpuscular HGB Conc 28.7 g/dL (31.5-36.5); Mean Corpuscular Volume 98 fL (80-100); Mean Platelet Volume 11.1 fL (9.1-12.4); Platelet Count 143 K/mm3 (150-400); RDW Coefficient Variation 18.9 % (11.7-14.2); RDW Standard Deviation 67.5 fL (35.1-46.3); Red Blood Cell Count 3.44 M/mm3 (4.30-5.90)
[2021-12-22 16:23] LABS: White Blood Cell Count 56.97 K/mm3 (4.00-11.30)
[2021-12-22 16:39] LABS: Albumin, Blood 2.5 g/dL (3.4-5.0); Anion Gap 0 mmol/L (6-16); Blood Urea Nitrogen 11 mg/dL (8-24); Bun/Creatinine Ratio 11.8 (12.0-20.0); CO2, Blood 35 mmol/L (21-32); Calcium, Blood 8.6 mg/dL (8.5-10.1); Chloride, Blood 104 mmol/L (98-108); Creatinine, Blood 0.94 mg/dL (0.60-1.20); Glomerular Filtration Rate >60 (60-); Glucose, Blood 111 mg/dL (70-99); Phosphorus, Blood 3.2 mg/dL (2.5-4.9); Potassium, Blood 4.4 mmol/L (3.5-5.5); Sodium, Blood 139 mmol/L (136-145)
[2021-12-22 16:53] LABS: BASOPHILS PERCENT MAN 0 % (0-2); EOSINOPHILS PERCENT MAN 0 % (0-6); LYMPHOCYTES ABSOLUTE MAN 49.56 K/mm3 (0.84-5.20); LYMPHOCYTES PERCENT MAN 87 % (21-46); MONOCYTES PERCENT MAN 0 % (4-13); SEG NEUTROPHILS PERCENT MAN 13 % (41-73); TOTAL CELLS COUNTED 100
[2021-12-23 04:55] LABS: Hematocrit 32.3 % (37.0-53.0); Hemoglobin 9.3 g/dL (13.5-17.5); Mean Corpuscular HGB 28.4 pg (26.0-34.0); Mean Corpuscular HGB Conc 28.8 g/dL (31.5-36.5); Mean Corpuscular Volume 99 fL (80-100); Mean Platelet Volume 11.5 fL (9.1-12.4); Platelet Count 142 K/mm3 (150-400); RDW Coefficient Variation 18.7 % (11.7-14.2); RDW Standard Deviation 67.7 fL (35.1-46.3); Red Blood Cell Count 3.27 M/mm3 (4.30-5.90)
[2021-12-23 05:03] LABS: White Blood Cell Count 53.23 K/mm3 (4.00-11.30)
[2021-12-23 05:26] LABS: Albumin, Blood 2.5 g/dL (3.4-5.0); Anion Gap 1 mmol/L (6-16); Blood Urea Nitrogen 12 mg/dL (8-24); Bun/Creatinine Ratio 12.9 (12.0-20.0); CO2, Blood 36 mmol/L (21-32); Calcium, Blood 8.3 mg/dL (8.5-10.1); Chloride, Blood 102 mmol/L (98-108); Creatinine, Blood 0.93 mg/dL (0.60-1.20); Glomerular Filtration Rate >60 (60-); Glucose, Blood 121 mg/dL (70-99); Magnesium, Blood 2.2 mg/dL (1.6-2.4); Phosphorus, Blood 3.5 mg/dL (2.5-4.9); Sodium, Blood 139 mmol/L (136-145)
--- NOTE | 2021-12-23 05:40 | NUR ---
SHIFT SUMMARY PATIENT ALERT AND ORIENTED. MEDICATED PER EMAR FOR PAIN AND ANXIETY. NO ACUTE ISSUES NOTED OVERNIGHT. CALL LIGHT WITHIN REACH. REPORT GIVEN TO ONCOMING RN.
[2021-12-23 06:48] LABS: BASOPHILS PERCENT MAN 0 % (0-2); EOSINOPHILS PERCENT MAN 0 % (0-6); LYMPHOCYTES PERCENT MAN 90 % (21-46); MONOCYTES ABSOLUTE MAN 0.53 K/mm3 (0.16-1.47); MONOCYTES PERCENT MAN 1 % (4-13); NEUTROPHILS ABSOLUTE MAN 4.79 K/mm3 (1.96-9.15); SEG NEUTROPHILS PERCENT MAN 9 % (41-73); TOTAL CELLS COUNTED 100
--- NOTE | 2021-12-24 05:05 | NUR ---
SHIFT SUMMARY AOX4-SELF, DATE, SITUATION, PLACE. FORGETFUL @TIMES & STATES HE LOSES HIS TRAIN OF THOUGHT, OTHERWISE CAN ANSWER QUESTIONS CORRECTLY. SLOW TO RESPOND. VSS. REPORTS CHRONIC PAIN IN BACK & NECK, MEDICATED 2X c NORCO & 1X SKELTIN MUSCLE RELAXER, PT ABLE TO REST COMFORTABLY AFTER. SPO2 >90% ON 2.5L O2, LS DIM c FINE CRACKLES IN BASES, REPORTS OCC DYSPNEA, STATES BETTER THEN BEFORE, E/U RESP, DENIES COUGH. REPORTED ANXIETY, PT MEDICATED 1X c ATARAX. SUPERPUBIC CATHETER PATENT & DRAINING CLEAR YELLOW URINE. CALL LIGHT IN REACH. WCTM.
--- NOTE | 2021-12-25 05:38 | NUR ---
SHIFT SUMMARY AOX3-FORGETFUL @TIMES. VSS. SPO2 >90% ON 3L O2. DENIES DYSPNEA OR N/V. HAD NOSE BLEED IN R NARES FOR ROUGHLY 2.5 HRS LAST NIGHT, SM-MOD AMOUNT RED, BLOODY DRAINAGE c A FEW CLOTS, APPLIED TAMPON IN R NARES UNTIL BLEEDING CEASED SINCE PT DIDNT WANT NASAL ROCKET PLACED BY MD. SUPERPUBIC CATH PATENT & DRAINING CLEAR YELLOW URINE. HAD LRG SOFT BM @HS. THIS AM I NOTICED PT HAD PINK TO LIGHT RED TINTED SPUTUM IN TISSUE. LS DIM c CRACKLES IN BASES. REPORTS CHRONIC PAIN TO LOW BACK & NECK, MEDICATED 2X c NORCO & 1X c SKELAXIN, PT ABLE TO REST COMFORTABLY. REPORTS FEELING ANXIOUS & MEDICATED 1X c ATARAX. CALL LIGHT IN REACH, WILL MONITOR.
[2021-12-25 10:36] LABS: Vancomycin, Trough 14.9 ug/mL (5.0-10.0)
--- NOTE | 2021-12-26 05:18 | NUR ---
SHIFT SUMMARY NO ACUTE CHANGES THIS SHIFT. VSS. AOX3-FORGETFUL @TIMES. SLOW TO RESPOND. REPORTS 6-10 PAIN IN BACK & NECK, MEDICATED 2X c NORCO & 1X c SKELAXIN. FREQUENTLY REPORTS FEELING "ANXIOUS" ABOUT HIS BREATHING, MEDICATED 1X c 25MG ATARAX, PT STATES HE FEELS IT'S NOT LASTING LONG & MAY NEED INCREASED BECAUSE HE'S STILL HIGHLY ANXIOUS ABOUT HIS BREATHING, WILL PASS INFO TO ONCOMING NURSE. SPO2 >90% ON 3L O2. LS DIM c FINE CRACKLES IN BASES. NO COUGH NOTED THIS SHIFT. USED THERAPEUTIC LISTENING & COMMUNICATION TO DISCUSS CANCER HX & CURRENT HEALTH SITUATION. REPOSITIONED FREQUENTLY, ENCOURAGED DEEP BREATHING, DISTRACTION, MUSIC THERAPY & PROVIDED SKIN CARE. SUPERPUBIC CATH PATENT & DRAINING CLEAR YELLOW URINE. CALL LIGHT IN REACH. WILL MONITOR.
--- NOTE | 2021-12-26 08:00 | NUR ---
PT PLEASANTLY ANXIOUS. CONCERNED NOT BREATHING. USING 8+ WORD SENTENCES. VERY TALKATIVE. RESP AT 18. O2 HOLDING >92% ON 3L. PT HAS HX OF ANX. TALKED TO HIM TO CALM HIM. PRESENTS SOME MORE RELAXED. A/O X2-3, NOT GOOD WITH DETAILS. H/R IRREG, NO MURMUR NOTED. NO TELE. HX AFIB. LUNGS LIGHT EXP WHEEZE UPPER, DIM LIGHT CRACKLES BASES. ON 3L O2. BT X4 LAST BM YEST PER PT. VOIDS SUPRAPUBIC CATH. CHRONIC, DRAINING CLEAR YELLOW FLUID. REDNESS AND LIGHT BLOOD IN SKIN FOLDS AT PANUS. RED SCROTAL AND BOTTOM, MEDS APPLIED. BED IN LOW POSITION, CALL LITE IN REACH, CALLS APPROP
--- NOTE | 2021-12-26 10:50 | NUR ---
PT FLAT AND IRRITABLE AT TIMES. COOPERATIVE WITH CARE. PT IS VERY TIRED AND WANTS TO SLEEP. A/O X2-3. DENIES PAIN THIS MORNING. H/R IS IN 90'S. NO TELE. HAS A HX OF A-FIB. LUNG SOUNDS COARSE AND WHEEZING IN LOWER LOBES. CLEAR IN UPPER LOBES. ON 3L/MIN VIA NASAL CANNULA. BREATHING IS EASY AND UNLABORED. PT STATES HE FEELS IF HE CANNOT BREATHE AT TIME BUT THINKS IT IS RELATED TO HIS ANXIETY. PT HAD A BOWEL MOVEMENT THIS MORNING THAT WAS FIRM. SUPRAPUBIC CATHETER IN PLACE. CLEAR, YELLOW URINE DRAINING TO GRAVITY. SKIN BREAKDOWN UNDER PANNUS, COCCYX AND TESTICLES. SLIGHT BLOODY DISCHARGE. CLEANSED WITH WOUND TREATMENT SPRAY AND WIPES. NYSTATIN CREAM APPLIED UNDER PANUS AND ON COCCYX. BABY POWDER APPLIED TO TESTICLES. PT HIPS FLOATED ON PILLOWS TO HELP CHANGE POSITIONS. BED IN LOW POSITION, CALL LIGHT IN REACH, CALLS APPROPRIATLY.
--- NOTE | 2021-12-26 15:10 | NUR ---
PT C/O FEELS LIKE HARD TIME BREATHING. VERY ANXIOUS. TALKING IN 6 AND 8 WORD SENTENCES. TALKS A LOT. STATES IS FEELING LIKE IS BREATHING BETTER AFTER TALKING WITH ME FOR AWHILE. DID REQUEST BREATHING TREATMENT FROM RT. LISTENED TO LUNGS. IS CLEAR T/O, NO WHEEZING NOTED. REMAINS DIM IN BASES. CONTINUES ON 3L O2. O2 AT 96%.
--- NOTE | 2021-12-26 18:29 | NUR ---
PT FLAT AND IRRITABLE AT TIMES. COOPERATIVE WITH CARE. A/O X2-3. C/O LOWER BACK PAIN. MEDICATED PER EMAR WITH TYLENOL. PT STATES THIS REALLY HELPED HIS PAIN. PT HAS HAD HEATING PAD ON HIS BACK ALL SHIFT. H/R IS IRREGULAR IN 80'S. NO TELE OR MURMUR NOTED. LUNGS CLEAR BILATERALLY, SLIGHTLY DIMINISHED IN BASES. PT RECEIVED BREATHING TREATMENT TODAY. PT STATES THIS REALLY HELPED HIM FEEL IF HE COULD BREATHE. COUGHING UP SCANT AMOUNTS OF MUCUS. PT HAS HAD AROUND 4 BOWEL MOVEMENT TODAY. VERY SOFT. WILL PASS TO NIGHT NURSE TO HOLD STOOL SOFTNERS. SUPRAPUBIC CATHETER IN PLACE. DRAINING TO GRAVITY. CLEAR YELLOW URINE. PT WAS UP IN CHAIR FOR MEALS. CALL LIGHT IN PLACE, BED IN LOW POSITION, CALLS APPROPRIALTY.
--- NOTE | 2021-12-26 18:46 | NUR ---
AGREE WITH STUDENT NOTES. PT COUGHED UP SMALL DARK BROWN MUCOUS X2 TODAY. WILL DISCUSS WITH TOMORROW
[2021-12-27 04:38] LABS: Anion Gap 4 mmol/L (6-16); Blood Urea Nitrogen 12 mg/dL (8-24); Bun/Creatinine Ratio 13.2 (12.0-20.0); CO2, Blood 33 mmol/L (21-32); Calcium, Blood 8.5 mg/dL (8.5-10.1); Chloride, Blood 105 mmol/L (98-108); Creatinine, Blood 0.91 mg/dL (0.60-1.20); Glomerular Filtration Rate >60 (60-); Glucose, Blood 117 mg/dL (70-99); Potassium, Blood 3.9 mmol/L (3.5-5.5); Sodium, Blood 142 mmol/L (136-145)
--- NOTE | 2021-12-27 05:28 | NUR ---
SHIFT SUMMARY: A/OX3, NOTED ANXIOUS PRESENTATION TOWARDS BEGINNING OF SHIFT. OCCASIONAL COMPLAINTS OF INCREASED SHORTNESS OF BREATH ALTHOUGH SATING 90'S ON 3L O2 NASAL CANNULA. GENERALIZED PAIN CONTROLLED WELL WITH ACETAMINOPHEN ADMINISTERED IN CONJUNCTION WITH GABAPENTIN. PT REPORTED SIGNIFICANT BREATHING IMPROVEMENT POST ADMINISTRATION OF PO SCHEDULED BUSPAR. PT REQUEST CRADLED PILLOW SUPPORT ON BOTH SIDES LEGS, ARMS AND BUTTOCKS, REPORTS COMFORT IN THIS POSITION AND DECLINED TURNING ON SIDES THROUGHOUT SHIFT. SUPRAPUBIC CATHETER DRAINING WELL. OCCASIONAL BLOODY SPUTUM NOTED. BED ALARM ACTIVATED, BED IN LOW POSITION, CALL ANDREWS IN REACH.
--- NOTE | 2021-12-27 08:23 | NUR ---
PT IRRITABLE AND FLAT. C/O LOWER BACK PAIN THAT IS CHRONIC. A/O X2. ORIENTED TO SELF AND PLACE. FORGETS LIMITATIONS. HX OF DEMENTIA. H/R IS IN 80'S. NO MURMUR NOTED. NO TELE. UPPER LOBES CLEAR BILATERALLY. WHEEZING HEARD IN LOWER LOBES. PRODUCTIVE COUGH. COUGHING UP THICK BROWN MUCOUS. 3L/MIN VIA NASAL CANNULA. LAST KNOWN BOWEL MOVEMENT WAS YESTERDAY. GOING TO HOLD MIRLAX THIS MORNING DUE TO DIARRHEA YESTERDAY. SUPPRAPUBIC CATHETER DRAINING TO GRAVITY. CLEAR/YELLOW URINE SEEN IN BAG. +1 BILATERAL PITTING EDEMA IN THE LOWER EXTREMITIES. PETICHIA NOTED. CALL LIGHT IN PLACE, CALLS APPROPRIALTY, BED IN LOW POSITION.
--- NOTE | 2021-12-27 09:18 | NUR ---
PT DISAGREEABLE ARGUMEMTATIVE. HAS BEEN RUDE TO STAFF. TOLD AIDE TO GET F... OUT. WAS ALSO RUDE TO STUDENT RN. I CAME AND SPOKE TO HIM ABOUT HIS BEHAVIOR TO STAFF BEING UNACCEPTABLE. I PASSED HIS MEDS. EXPLAINED MUST BE DECENT AND REASONABLY KIND TO STAFF IN INTERACTIONS, HE DENIES SAYING THESE THINGS TO STAFF. TOLD HIM WE WILL START ANEW NOW. CALL LITE IN REACH, BED IN LOW POSITION. CALLS APPROP. DISCUSSED THIS WITH THE STAFF AND WITH INTEGRATION TECHNICIAN. WILL SPEAK TO DR RAMIREZ WHEN HE DOES ROUNDS.
--- NOTE | 2021-12-27 15:26 | NUR ---
PT CONTINUES TO SPIT UP DARK BROWN LIGHT RED TINGED COLORED MUCOUS 2-3 TIMES PER DAY.
--- NOTE | 2021-12-27 18:30 | NUR ---
PT HAS BEEN TALKED TO BY MYSELF, COLT, TREMAINE WEINBERG, AND DR RAMIREZ ABOUT BEING RUDE TO STAFF. HE HAS IMPROVED SOMEWHAT THIS AFT. DARK TARRY STOOL NOTED THIS JOSHUA. THIS WAS DISCUSSED WITH DR RAMIREZ, NO SAMPLE NEEDED. HE TO MAKE RX CHANGES. WE ARE STILL PENDING PLACEMANT HOME IS NOT SAFE PER SENIOR SHAREPOINT ARCHITECT. BED IN LOW POSITION, CALL LITE IN REACH, CALLS APPROP
--- NOTE | 2021-12-27 19:02 | NUR ---
PT IRRITABLE TODAY. A/O X2-3. CAN BE COOPERATIVE WITH CARE. H/R REGULAR. NO MURMUR NOTED. NO TELE. LUNG SOUNDS DIMINISHED IN LOWER LOBES. UPPER LOBES CLR. ON 3L/MIN VIA NASAL CANNULA. PT STATES OFTEN HE CANNOT BREATHE. PT ASSURED HE IS AT 97%. ENCOURAGED DEEP BREATHING THROUGH NOSE AND OUT THROUGH MOUTH. PT BECOMES AGITATED WHEN REMINDED TO DO SO. PT HAS HAD MULTIPLE BOWEL MOVEMENTS TODAY. LOOSE AND DARK IN COLOR. DR WAS CONSULTED. PT HAS A SUPRAPUBIC CATHETER THAT IS DRAINING TO GRAVITY. CLEAR AND YELLOW. PT HAS +1 PITTING EDEMA IN HIS LOWER EXTREMITES. PETICHIA NOTED. ESCORIATION ON COCCYX HAS WORSENED OVER TODAY. BARRIER CREAM APPLIED. REMINDED PT THAT Q2 TURN IS ENCOURAGED THE BREAKDOWN HAS WORSENED. PT AGREED AND PLACED ON RT SIDE. PILLOW PLACED BETWEEN PT LEGS TO HELP WITH PRESSURE. CALL LIGHT IN REACH, BED IN LOW POSITION, CALLS APPROPRIALTY.
--- NOTE | 2021-12-28 02:38 | NUR ---
NURSE NOTE: BARB HARRINGTON CONTACTED PT COMPLAINT OF INCREASED ANXIETY, REQUESTING PRN. BARB HARRINGTON GAVE TELEPHONE ORDER FOR ONE TIME DOSE 1 MG ATIVAN NOW.
--- NOTE | 2021-12-28 04:07 | NUR ---
SHIFT SUMMARY: A/OX4, Q2 TURN/REPOSITION. CONTINUED COMPLAINT OF INCREASED ANXIETY RELATED TO PT COMPLAINT OF DIFFICULTY BREATHING. RESPIRATORY EVALUATED, OXYGEN SATURATION STABLE IN THE 90'S PERCENTILE. MD GAVE ORDER FOR ONE TIME PRN ATIVAN, ALLOWED PATIENT TO REST. BED ALARM ACTIVATED, BED IN LOW POSITION, CALL ANDREWS AND BELONGINGS IN REACH.
--- NOTE | 2021-12-28 06:27 | NUR ---
NURSE NOTE- SMALL AMOUNT OF BLEEDING AT SUPRAPUBIC CATH SITE. PT REPORTS THE [facility] WAS [facility]UL[facility] SUPRAPUBIC CATH AROUND 12/27- AND IS DUE TO BE CHANGED.
--- NOTE | 2021-12-28 19:25 | NUR ---
NURSE NOTE: 1929 NATI HARRINGTON NOTIFIED PATIENT VERBALIZING SUICIDAL IDEATIONS. 1924 UPON ROUNDING PATIENT IS VERY IRRITABLE THAT NURSING STAFF DID NOT WAKE HIM UP TO ADMINISTER PRN XANAX FOR ANXIETY AT 1800. EDUCATED PATIENT THAT BASED ON NURSING JUDGEMENT IF NURSING STAFF OBSERVES INCREASED DROWSINESS THAT WE ARE TO HOLD MEDICATIONS WITH SEDATING AND RESPIRATORY DEPRESSION SIDE EFFECTS. PATIENT BECAME INCREASINGLY IRRITATED EVEN AFTER OFFERING TO ADMINISTER ANXIETY MEDICATIONS TO HIM NOW. PT REPORTS FEELING VERY DEPRESSED AND ANXIOUS, CONTINUES TO REPEAT STATEMENT "I WANT TO , I WANT TO SHOOT MYSELF. DO YOU HEAR ME? I SAID I WANT TO AND YOU NEED TO TAKE ME SERIOUS. I DON'T WANT TO LIVE ANYMORE". CHARGE NURSE NOTIFIED, WAS CONTACTED AND ORDERS FOR SI PRECAUTIONS PLACED.
--- NOTE | 2021-12-28 23:33 | NUR ---
TRANSFER NOTE PT TRANSFERRED TO 351 AT 2325. REPORT GIVEN TO ME BY SUSAN LOWRY.
--- NOTE | 2021-12-29 00:18 | NUR ---
PT DROWSY AND ASKS ANOTHER RN FOR ANXIETY MEDICATION. THIS RN WENT AND GOT THE MEDICATION BUT PT IS NOW ASLEEP. PT NOT MEDICATED AT THIS TIME.
--- NOTE | 2021-12-29 01:03 | NUR ---
PT HAS ONE TO ONE SITTER IN ROOM WITH HIM. PT MAKES UNNECESSARY COMMENTS TO RN WHILE RN IS TRYING TO HELP HIM.
--- NOTE | 2021-12-29 04:03 | NUR ---
SHIFT SUMMARY PT TX TO 351 FROM 354 FOR SUICIDAL IDEATION. PT HAS A ONE ON ONE SITTER IN THE ROOM WITH HIM. PT IS HIGHLY ANXIOUS, ARGUMENTATIVE, AND AT TIMES DEMANDING. PT MAKES UNNECESSARY COMMENTS TO RN. PT HAS SLEPT OFF AND ON MOST OF THE NIGHT AFTER BEING MEDICATED FOR ANXIETY. PT WILL CONTINUE TO BE MONITORED.
--- NOTE | 2021-12-29 18:02 | NUR ---
SHIFT SUMMARY PATIENT MEDICATED FOR PAIN X2. PATIENT MEDICATED FOR ANXIETY X2. RT CALLED FOR PATIENT FEELING SHORT OF BREATH, INHALER GIVEN. PATIENT DENIES NAUSEA. PATIENT DID NOT WANT TO GET UP TODAY. PICHARDO IS PATENT AND DRAINING TO GRAVITY. PATIENT HAS BEEN VERY PLEASANT WITH STAFF. PATIENT HAS A 1:1 SITTER DUE TO MODERATE SI. PATIENT VERBALIZED TO THIS RN "I DONT WANT TO KILL MYSELF, GOD SAYS I CANT". PATIENT EATING AND DRINKING WELL. PATIENT IS PLEASANT AND COOPERATIVE WITH CARE.
--- NOTE | 2021-12-30 03:54 | NUR ---
SHIFT SUMMARY: PATIENT WITH ONGONING ANXIETY/PAIN TREATED PER EMAR. CAN BE CANTANKEROUS WITH STAFF AND EASILY AGITATED. DENIES ACTIVE SI. STATES "OF COURSE I DON'T WANT TO LIVE LIKE THIS, IT SUCKS I CAN'T BREATHE, AND I CAN'T WALK. HOWEVER, GOD WON'T LET ME ACTUALLY KILL MYSELF. IF HE WOULD THEN I WOULD" DENIES INTENT OR MEANS. SUPRAPUBIC IN PLACE DRAINING CLEAR YELLOW URINE. INSERTION SITE CLEANSED AND NEW SPLIT GAUZE PLACED. DUSTY SKIN/PANNUS TREATED WITH ORDERED NYSTATIN. SCROTOM ELEVATED WITH PILLOWCASE TO ALLOW AIRFLOW. REMAINS ON 2-3L OF OXYGEN (BASELINE). ENDORSES SOB RELATED TO ANXIETY REFUSES BREATHING TREATMENTS STATING THEY DONT WORK SATS > 94%. WCTM.
--- NOTE | 2021-12-30 18:31 | NUR ---
SHIFT SUMMARY PATIENT ARGUMENATIVE AND UNCOOPERATIVE WITH CARE. PATIENT C/O ANXIETY AND PAIN T/O SHIFT. MEDICATED PER NOV. PATIENT WORKED WITH OT BUT BECAME UNCOOPATIVE. PATIENT HAD A 1:1 SITTER DUE TO MOD SI THAT WAS DISCONTINUED AT 1500. SUPRAPUBIC CATHETER PRESENT AND DRAINING TO GRAVITY. NYSTATIN CREAM AND BARRIER CREAM APPLIED TO GROIN, SCROTUM, AND BUTTOCK. PATIENT IS AWAITING PLACEMENT. BED IN LOW POSITION WITH BED ALARM ARMED. WILL CONTINUE TO MONITOR.
--- NOTE | 2021-12-31 04:26 | NUR ---
SHIFT SUMMARY ADMITTED FOR PNEUMONIA. DNR CODE. FOUND TO BE HYPOTENSIVE. PLAN IS FOR PLACEMENT. POWERGLIDE IN LUE. [facility] PATIENT. 3 LPM O2 VIA NC. CALLS OUT FREQUENTLY. CONFUSED. SUPRAPUBIC CATHETER IS IN PLACE. XANAX GIVEN FOR ANXIETY. PATIENT DID NOT SLEEP THIS SHIFT. CONFIDENTIAL PATIENT.
--- NOTE | 2021-12-31 17:48 | NUR ---
SHIFT SUMMARY A/OX3, FORGETFUL. IRRITABLE AT TIMES BUT EASILY REDIRECTED. SOMETIMES YELLS OUT, ENCOURAGED USE OF CALL LIGHT. WEAK, PRODUCTIVE COUGH WITH DARK BROWN SPUTUM NOTED. CURRENTLY ON 3L VIA NC. UP TO CHAIR FOR A SHORT PERIOD TODAY, REQUIRING 2 MAX STAND/PIVOT D/T WEAKNESS. BED IN LOWEST POSITION WITH CALL LIGHT IN REACH. WILL CONTINUE TO MONITOR AND REPORT TO ONCOMING RN.
--- NOTE | 2022-01-01 05:34 | NUR ---
SHIFT SUMMARY: PATIENT IS ANXIOUS AND YELLING OUT, "I CAN'T BREATH". 02 SAT IS, 94-96% ON 3L NC. PRN XANAX WAS GIVEN WITH GOOD EFFECT. NO ACUTE CHANGES.
[2022-01-01 05:46] LABS: Hematocrit 29.4 % (37.0-53.0); Hemoglobin 8.1 g/dL (13.5-17.5); Mean Corpuscular HGB 28.9 pg (26.0-34.0); Mean Corpuscular HGB Conc 27.6 g/dL (31.5-36.5); Mean Corpuscular Volume 105 fL (80-100); Mean Platelet Volume 10.9 fL (9.1-12.4); Platelet Count 177 K/mm3 (150-400); RDW Coefficient Variation 19.6 % (11.7-14.2); RDW Standard Deviation 74.2 fL (35.1-46.3); White Blood Cell Count 46.25 K/mm3 (4.00-11.30)
[2022-01-01 06:16] LABS: Anion Gap 2 mmol/L (6-16); Blood Urea Nitrogen 13 mg/dL (8-24); Bun/Creatinine Ratio 17.6 (12.0-20.0); CO2, Blood 31 mmol/L (21-32); Calcium, Blood 8.8 mg/dL (8.5-10.1); Chloride, Blood 109 mmol/L (98-108); Creatinine, Blood 0.74 mg/dL (0.60-1.20); Glomerular Filtration Rate >60 (60-); Glucose, Blood 122 mg/dL (70-99); Magnesium, Blood 2.1 mg/dL (1.6-2.4); Phosphorus, Blood 3.1 mg/dL (2.5-4.9); Potassium, Blood 4.2 mmol/L (3.5-5.5); Sodium, Blood 142 mmol/L (136-145)
[2022-01-01 07:00] LABS: BASOPHILS ABSOLUTE MAN 0.46 K/mm3 (0.00-0.23); BASOPHILS PERCENT MAN 1 % (0-2); EOSINOPHILS ABSOLUTE MAN 0.46 K/mm3 (0.00-0.68); EOSINOPHILS PERCENT MAN 1 % (0-6); LYMPHOCYTES ABSOLUTE MAN 37.46 K/mm3 (0.84-5.20); LYMPHOCYTES PERCENT MAN 81 % (21-46); MONOCYTES ABSOLUTE MAN 1.85 K/mm3 (0.16-1.47); MONOCYTES PERCENT MAN 4 % (4-13); NEUTROPHILS ABSOLUTE MAN 6.01 K/mm3 (1.96-9.15); SEG NEUTROPHILS PERCENT MAN 13 % (41-73); TOTAL CELLS COUNTED 100
--- NOTE | 2022-01-01 17:34 | NUR ---
END OF SHIFT SUMMARY No changes to patient status this shift, pt resting comfortably all shift. OOB for breakfast. Pt reported anxiety, received Xanax PRN, effective. Vital stable, no other concerns this shift.
--- NOTE | 2022-01-02 04:31 | NUR ---
SHIFT SUMMARY: PATIENT REPORTED BACK PAIN AND WAS GIVEN NORCO X1 WITH GOOD EFFECT. ANXIETY IS PERSISTANT, XANAX PRN Q 6 HOURS WAS GIVEN WITH GOOD EFFECT. PATIENT WOKE FROM A DREAM VERY ANXIOUS. EMOTIONAL SUPORT WAS GIVEN. VSS. GROIN AND SCROTUM ARE RED, DUSTY CARE AND NYSTATIN CREAM ARE GIVEN.
--- NOTE | 2022-01-02 11:39 | NUR ---
MD CALL PT C/O FEELING LIKE HE CAN'T BREATH, SATS HIGH 90S ON 3LN/C. RT GAVE TREATMENT. LUNGS SOUND WET. DR DAMIAN CALLED - HE SAID HE WILL ORDER DIURETIC AND RPT CXR.
--- NOTE | 2022-01-02 18:56 | NUR ---
SHIFT SUMMARY MR SEBASTIAN HAD FELT SOB EARLIER THIS SHIFT, MAINTAINING HIGH 90S O2 SATS ON HIS BASELINE 3LNC. RT DID TREATMENT. DR DAMIAN CALLED FOR COARSE LUNG SOUNDS, PO DIURETIC AND CXR ORDERED AND DONE. 1400CC PALE YELLOW URINE OUTPUT TO SUPRAPUBIC PICHARDO CATHETER AFTER DIURETIC. NO C/O BACK PAIN TODAY. DID TAKE MEDS FOR ANXIETY THIS MORNING. HE SLEPT FOR A FEW HOURS THIS AFTERNOON AND SEEMS BETTER RESTED AND MORE CONTENT AFTERWARDS. SKIN CARE DONE TO SUPRA PUBIC PICHARDO AREA, ABDOMINAL FOLD, RED DUSTY AREAS. POWERGLIDE IV SITE REDRESSED, FLUSHED, CAPS CHANGED. MOIST COUGH WITH THICK BROWN SPUTUM. BED LOW. CALL LIGHT IN REACH.
[2022-01-03 05:03] LABS: Anion Gap 3 mmol/L (6-16); Blood Urea Nitrogen 14 mg/dL (8-24); Bun/Creatinine Ratio 17.9 (12.0-20.0); CO2, Blood 35 mmol/L (21-32); Calcium, Blood 8.7 mg/dL (8.5-10.1); Chloride, Blood 105 mmol/L (98-108); Creatinine, Blood 0.78 mg/dL (0.60-1.20); Glomerular Filtration Rate >60 (60-); Glucose, Blood 130 mg/dL (70-99); Potassium, Blood 3.9 mmol/L (3.5-5.5); Sodium, Blood 143 mmol/L (136-145)
--- NOTE | 2022-01-03 05:47 | NUR ---
SHIFT SUMMARY: TACHYCARDIA HAS IMPROVED SINCE DEMADEX WAS GIVEN YESTERDAY. PATIENT DOES STILL REPORT INABILITY TO GET GOOD AIR. LUNGS ARE COARSE WITH A FAINT EXPIRATORY WHEEZE ON THE RIGHT. PRN NEB WAS GIVEN X1 WITH GOOD EFFECT. PATIENT ALSO REPOPRTS FEELLING ANXIOUS. PRN XANAX WAS GIVEN WITH GOOD EFFECT.
--- NOTE | 2022-01-03 16:51 | NUR ---
SHIFT SUMMARY: NO ACUTE EVENTS. C/O PAIN IN LUMBAR SPINE; HEATING PAD APPLIED AND HE WAS MEDICATED PER EMAR. LEFT MESSAGE FOR MERE RN TO CHANGE SUPRAPUBIC CATHETER TODAY; NOT DONE YET. BREATH SOUNDS WITH CRACKLES ON L SIDE, DIM ON RIGHT SIDE. USING O2 @ 3 L/MIN NC, PRN RT TREATMENTS. GETTING UP TO CHAIR WITH 1-2 PERSON ASSIST AND GAIT BELT/FWW. RASH NOTED ON GROIN, BUTTOCKS, AND SKIN FOLDS; NYSTATIN APPLIED. RECEIVED XANAX TWICE FOR ANXIETY R/T SOB. URINE IS CLOUDY YELLOW. AWAITING PLACEMENT CLOSER TO HIS BROTHER.
--- NOTE | 2022-01-04 06:09 | NUR ---
SHIFT SUMMARY: PATIENT IS REPORTING PAIN AT XIPHIOD PROCESS WITH COUGHING AND BACK PAIN. THEIR IS A LUMP PRESENT. PATIENT REPORTS FEELING LIKE THE PHLEM IS IN HIS AIRWAY BUT HER CAN'T GET IT OUT. PATIENT IS ABLE TO COUGH EFFECTIVELY AND IS PRODUCING A SMALL AMT. OF CREAMY PINK TINGED SPUTUM. MEDICATED FOR PAIN X2 WITH NORCO WITH GOOD EFFECT. PATIENT ALSO CONTINUES TO BE ANXIOUS ABOUT HIS RESPIRATORY STATUS AND XANAX IS GIVEN X2 WITH GOOD EFFECT. THIS AM PATIENT IS RESTING COMFORATABLY. 02 SAT WAS 88% ON 3L O2. 02 WAS INCREASED TO 6L BRINGING SAT UP TO 90-91%
--- NOTE | 2022-01-04 17:28 | NUR ---
SHIFT SUMMARY 76 Y M ADMITTED FOR HYPOTENSION WITH ASCAD, DIASTOLIC CHF, A-FIB, PNEUMONIA, FLUID OVERLOAD, UTI AND LUNG CA. PT IS A&O BUT VERY RESTLESS AND ANXIOUS AND CALLS OUT FREQUENTLY. PT FREQUENTLY C/O SOB AND ASKS FOR HIS XANAX. DISCUSSED PT BREATHING AND INCREASED COARSENESS WITH MD AND NEW ORDERS RECEIVED FOR INCREASED LASIX. PT HAS BEEN COUGHING UP THICK BROWN SPUTUM. RT ALSO IN TO ASSESS PT AND BREATHING TX ADMINISTERED. D/C PLANS ARE PENDING PLACEMENT AT THIS TIME. NO OTHER CHANGES TO REPORT THIS SHIFT.
--- NOTE | 2022-01-05 06:09 | NUR ---
SHIFT SUMMARY: PATIENT CONTINUES TO REPORT BACK PAIN SOB AND ANXIETY WITH THE SOB. NORCO WAS GIVEN AND INCENTIVE SPIROMETER ENC. PATIENT IS ASISTED WITH ORAL SUCTIONING. HE IS HAVING DIFFICULTY COUGHING UP SECRETIONS OUT OF THE UPPER AIRWAY. LUNGS ARE COARSE WITH RHONCI THROUGHOUT. SCORED A 4 ON THE VIEWS FOR BP 99/70 HR 115 AND 02 SAT 84% ON 3L NC. 02 WAS INCREASED TO 6L, SAT UP TO 90%. PATIENT REQUESTED PRN XANAX AT THAT TIME BUT MED WAS NOT GIVEN DUE TO CONCERN OF OVERSEDATION CAUSING HYPOXIA WHILE SLEEPING. PATIENT IS NOW SLEEPING WITH O2 AT 6L.
--- NOTE | 2022-01-05 10:37 | NUR ---
PT HAS STATED THAT HE'S VERY CONCERNED THAT HE DYING AND HE DOES NOT KNOW WHAT TO DO ABOUT IT. HE STATES THAT HE WISHED HE WAS IF HES GOING TO AND THAT HE WISHED HE COULD BE , BUT NO REMARKS ABOUT HARMING HIMSELF. I HAVE REQUESTED THAT PALLIATIVE COME SEE HIM, PERHAPS DISCUSS PALLIATIVE CARE WITH HIM. WILL CONTINUE TO MONITOR FOR SI REMARKS.
--- NOTE | 2022-01-05 15:50 | NUR ---
PT IS ARGUMENTATIVE TODAY AND ARGUES WITH ALL STAFF THAT ATTEND TO THIM. STAFF HAS SUCTIONED COPIOUS AMMOUNTS OF DIFFERENT FLUIDS AND FOOD FROM HIS LUNGS HE CONTINUE TO ASPIRATE WITH AND WITHOUT A STRAW, THICKENED LIQUIDS, FOODS AND SPOON FED. PT WAS PLACED NPO WHICH HE IS VERY UPSET ABOUT AND HAS YELLED AT THE STAFF AND THE DOCTOR ABOUT. HE HAS ALSO CALLED HIS BROTHER AND HIS BRAKE COUPLER DINKEY ABOUT THE ISSUE. BROTHER INFORMED OF THE REASON BEHIND IT. WILL CONTINUE TO MONITOR.
--- NOTE | 2022-01-05 17:37 | NUR ---
SHIFT SUMMARY PT HAS BEEN VERY DISAGREEABLE THIS SHIFT AND HAS BEEN UPSET THAT HE HAS BEEN PLACED NPO. SEE PREVIOUS NOTES FOR SUMMARY. HE IS NO REFUSING ORAL MEDS THIS EVENING AND SCREAMING "HELP" HE HAS BEEN RESTING THIS AFTERNOON HE HAS GOTTEN MUCH WEAKER TODAY AND NOT CANNOT EVEN LIFT TISSUES TO HIS MOUTH. PALLIATIVE WAS CONSULTED AGAIN TODAY AND SAID SHE WOULD SPEAK TO THE PATIENTS POA TO DISCUSS PALLITIVE CARE WITH HIM TOMORROW. THE PT HAS NOTICED HE IS WEAKER AND STATES "I KNOW THAT I AM DYING, I WISH I COULD ." BUT HAS NOT EXPRESSED A PLAN TO KILL HIMSELF. LET OUT OF SI PRECAUTIONS PER NURSING RELIEF CHARGE NURSE. WILL CONTINUE TO MONITOR.
--- NOTE | 2022-01-06 03:35 | NUR ---
DIRECTOR OF SAFETY SUMMARY AGITATION AND APPARENT ANXIETY CONTINUES THROUGHOUT THE SHIFT. CALLING OUT FOR STAFF AT INTERVALS. RT TREATMENT GIVEN FOR C/O SOB. ANTIANXIETY MED GIVEN. HOB ELEVATED FOR BETTER BREATHING. O2 PER NC. RESPIRATIONS CONGESTED PER AUSCULTATION. DISCUSSED HIS NPO STATUS AND WHY HE COULDNT HAVE A LOT OF WATER TO DRINK - HE WAS HAVING A SWALLOW STUDY IN THE AM FOR HIS SAFETY. ALTHOUGH HE VOICED FEELINGS OF THINKING HE WAS GOING TO , DID NOT VOICE SUICIDAL IDEATIONS. STAFF CONTINUES TO PRIVIDE VERBAL SUPPORT AND REDIRECTION NEEDED. SEE MAR FOR DETAILS OF MEDS GIVEN. CALL LIGHT IN REACH
[2022-01-06 05:32] LABS: Hematocrit 29.3 % (37.0-53.0); Hemoglobin 8.1 g/dL (13.5-17.5); Mean Corpuscular HGB 29.3 pg (26.0-34.0); Mean Corpuscular HGB Conc 27.6 g/dL (31.5-36.5); Mean Corpuscular Volume 106 fL (80-100); Mean Platelet Volume 10.5 fL (9.1-12.4); Platelet Count 189 K/mm3 (150-400); RDW Coefficient Variation 18.1 % (11.7-14.2); RDW Standard Deviation 70.6 fL (35.1-46.3); Red Blood Cell Count 2.76 M/mm3 (4.30-5.90); White Blood Cell Count 44.52 K/mm3 (4.00-11.30)
[2022-01-06 05:44] LABS: Anion Gap 2 mmol/L (6-16); Blood Urea Nitrogen 12 mg/dL (8-24); Bun/Creatinine Ratio 16.1 (12.0-20.0); CO2, Blood 37 mmol/L (21-32); Calcium, Blood 9.2 mg/dL (8.5-10.1); Chloride, Blood 103 mmol/L (98-108); Creatinine, Blood 0.74 mg/dL (0.60-1.20); Glomerular Filtration Rate >60 (60-); Glucose, Blood 136 mg/dL (70-99); Potassium, Blood 4.1 mmol/L (3.5-5.5); Sodium, Blood 142 mmol/L (136-145)
--- NOTE | 2022-01-07 05:55 | NUR ---
SHIFT SUMMARY: PT WAS COOPERATIVE AND PLEASANT THIS SHIFT. HE DID HAVE TWO BMs AND WAS CLEANED AND NYSTATIN APPLIED. HE REMAINS ON 4-5L OF O2. SUPRAPUBIC CATHETER IS PATENT WITH YELLOW/CLEAR OUTPUT. POWERGLIDE JEROME IS PATENT AND DOES VERY WELL AT LINE DRAWS. PT DOES HAVE INTERMITTENT PAIN AND TYLENOL HAS WORKED FOR HIS PAIN MANAGEMENT. PT HAS NOT HAD ANY COUGH AND DID NOT REQUEST FOR ANY PRN RT TREATMENTS. HE USES THE CALL LIGHT FOR NEEDS AND WE'LL CONTINUE TO MONITOR THE REMAINDER OF THE SHIFT.
[2022-01-07 06:08] LABS: Anion Gap 2 mmol/L (6-16); Blood Urea Nitrogen 13 mg/dL (8-24); Bun/Creatinine Ratio 15.7 (12.0-20.0); CO2, Blood 39 mmol/L (21-32); Calcium, Blood 8.5 mg/dL (8.5-10.1); Chloride, Blood 101 mmol/L (98-108); Creatinine, Blood 0.83 mg/dL (0.60-1.20); Glomerular Filtration Rate >60 (60-); Glucose, Blood 130 mg/dL (70-99); Potassium, Blood 3.9 mmol/L (3.5-5.5); Sodium, Blood 142 mmol/L (136-145)
--- NOTE | 2022-01-08 05:37 | NUR ---
SHIFT SUMMARY PT AWAKE UNTIL LATE THIS EVENING. SLEPT WELL ONCE FALLING ASLEEP. PT HAD 3 LARGE UNFORMED BOWEL MOVEMENTS THIS EVENING. DECLINED IMMODIUM. SKIN TO GROIN AND COCCYX EXCORIATED. NYSTATIN CREAM APPLIED TO AREA. SUPRAPUBIC CATHETER PATENT AND DRAINING. PT REMAINED ON 5 L VIA NC. REPORTS FEELING SOB OR LIKE HE CANNOT TAKE A DEEP BREATH. PT ANXIOUS AT TIMES. MEDICATED X 1 W/ XANAX. PT AWAITING PLACEMENT. VITAL SIGNS STABLE.
--- NOTE | 2022-01-09 04:18 | NUR ---
patient with VSS on 4L/NC overnight. patient turned Q2 hrs. Bilat buttocks non blanchable redness. Yeast in groin. Nystatin cream applied. SP catheter patent, draining QS. Lungs are dim throughout. Patient does not appear in acute respiratory distress but c/o nose being plugged up and frequently removes his NC to blow his nose. Patient alert to self and situation. stating in the night that he is dying. Discussed his [facility] with the [facility] charge. I gave him the last dose that he had with him from home.
--- NOTE | 2022-01-09 14:17 | NUR ---
Spiritual care visit conducted. Patient talks at length about his worries and fears, about his ideas of what is wrong with the world and about the things that have been stolen from him. When asked about what ispires him he talks about love, the innocence of youth and the beauty of nature. He also shares his ideas about why the Bible is wrong, the hopelessness of the afterlife and his fears of dying by suffocation (from lung cancer). I normalize his fears, reinforce helpful attitudes and perspectives and provide therapeutic listening and a calming presence.
--- NOTE | 2022-01-10 04:13 | NUR ---
MOLD CLEANER SUMMARY PT TO BE DC'D 01/14/22 TO [facility]. HE HAS VERY LIMITED MOTIVATION TO DO THINGS ON HIS OWN AND IS VERY HARSH IN HOW HE SPEAKS TO STAFF. PT VERY DEMANDING WITH HIS CALL LIGHT, PRESSING THE BUTTON MULTIPLE TIMES AND COMPLAINING THAT "EVERYONE MUST BE SLEEPING OUT THERE." PT ALERT AND ORIENTED X3. SUPRAPUBIC CATHETER PATENT AND DRAINING. HE CONTINUES TO HAVE REDNESS AND PAIN TO THE PENIS AND SCROTAL AREA - TREATING WITH NYSTATIN. PT COMPLAINS OF "NOT ABLE TO BREATHE" MULTIPLE TIMES THROUGHOUT THE SHIFT AND CONTINUALLY REQUESTS MEDICATION FOR ANXIETY. MEDICATED X1 PER NOV SCHEDULE. HE COMPLAINS OF PAIN IN HIS BACK BUT REFUSES NORCO BECAUSE "IT MAKES ME FEEL FUNNY" AND REFUSING ROXANOL BECAUSE "IT DOESN'T WORK." PT AGREES TO TYLENOL.
[2022-01-10 05:20] LABS: Anion Gap 2 mmol/L (6-16); Blood Urea Nitrogen 17 mg/dL (8-24); CO2, Blood 41 mmol/L (21-32); Calcium, Blood 8.8 mg/dL (8.5-10.1); Chloride, Blood 98 mmol/L (98-108); Creatinine, Blood 0.85 mg/dL (0.60-1.20); Glomerular Filtration Rate >60 (60-); Glucose, Blood 192 mg/dL (70-99); Potassium, Blood 3.6 mmol/L (3.5-5.5); Sodium, Blood 141 mmol/L (136-145)
--- NOTE | 2022-01-10 16:13 | NUR ---
SHIFT SUMMARY PT RESTING QUIETLY IN RESTRAINTS DURING SHIFT REPORT THIS AM. PT BECOMING AGITATED IMMEDIATELY TO VERBAL STIMULI AND THEN ATTEMPTED ROUTINE CARE. PER SHIFT REPORT, PT BECOMING AGITATED AND COMBATIVE, PULLING AT IV LINES AND PICHARDO CATH. SPEECH IS DIFFICULT TO UNDERSTAND, MOSTLY GARBLED. DOES NOT FOLLOW INSTRUCTIONS. PT'S EX- HERE THIS AFTERNOON TO SIT WITH PT FOR A WHILE. DR HOWARD IN TO CK ON PT AND TALKED WITH EX-. PALLIATIVE CARE RN ALSO HERE TO TALK WITH EX- WHEN DR HOWARD FINISHED. FAMILY TO COME IN TOGETHER TO DISCUSS TX TO COMFORT CARE. IV TO JEROME INFILTRATED AT START OF SHIFT, NEW IV PLACED TO RFA. CLINIMIX INFUSING PER EMAR. IV ABX ADMIN PER EMAR. PICHARDO TO GRAVITY; PATENT. PT REPOSITIONED THRU OUT THE DAY. ATTENDS CHANGED FOR BOWEL INCONTINENCE. BED BATH AND LINEN CHANGE DONE. RESTING QUIELTY AGAIN AT THIS TIME. CALL LT IN REACH. BED ALARM ON FOR SAFETY.
--- NOTE | 2022-01-10 16:37 | NUR ---
PT WAS ASLEEP IN THE BEIGINNING OF THE SHIFT. PT WAS IRRIATBLE AND TIRED. PT TOOK MEDICATION WHOLE WITH PEPSI. PT ENCOURAGED TO UP INTO THE CHAIR FOR MEALS, PT REFUSED. PT REPOSTIONED, BREIF CHANGED, AND CREAM APPLIED TO COCCXY'S. PT BECOME ANXIOUS BEFORE LUNCH AND REQUESTED FOR XANAX. PT FELL ASLEEP WHEN REASSED AFTER ANXIETY MEDICATION GIVEN. PT PG FLUSHED AND PATENT. PT CATHETER PATENT AND OUT PUTTING KENZIE URINE. PT ENCOURAGED TO INCREASE INTAKE OF FLUIDS. PT RESTING IN BED WITH CALL LIGHT WITHIN REACH.
--- NOTE | 2022-01-10 17:03 | NUR ---
SHIFT SUMMARY PT RESTING QUIETLY WITH EYES CLOSED AT START OF SHIFT. PER REPORT, PT WAITED UNTIL 0100 WHEN XANAX COULD BE GIVEN. SUPRAPUBIC CATH; PATENT AND DRAINING CL YELLOW URINE. PT WOKE FOR CARE AND ABLE TO FEED SELF AT BREAKFAST AND LUNCH. MEDS WHOLE WITH WATER. DR DAY IN TO SEE PT THIS AM. O2 DECREASED TO 2L; BIOX REMAINED AT 93%. O2 TO BE TITRATED DOWN. PT REPOSITIONED THRU OUT THE DAY. CALAZIME LOTION APPLIED TO BUTTOCKS REDNESS. PT INCONTINENT OF BOWEL; ATTENDS CHANGED. NYSTATIN CREAM APPLIED TO DUSTY AREA REDNESS. IV LASIX CHANGED TO PO. PER REPORT, PT TO D/C'D TO [facility] IN [place] ON THURSDAY. DENIES FURTHER NEEDS AT THIS TIME. CALL LT IN REACH.
[2022-01-11 05:04] LABS: Anion Gap 2 mmol/L (6-16); Blood Urea Nitrogen 16 mg/dL (8-24); Bun/Creatinine Ratio 20.1 (12.0-20.0); CO2, Blood 38 mmol/L (21-32); Calcium, Blood 8.7 mg/dL (8.5-10.1); Chloride, Blood 100 mmol/L (98-108); Glomerular Filtration Rate >60 (60-); Glucose, Blood 124 mg/dL (70-99); Potassium, Blood 3.9 mmol/L (3.5-5.5); Sodium, Blood 140 mmol/L (136-145)
--- NOTE | 2022-01-11 05:12 | NUR ---
SHIFT SUMMARY NO ACUTE CHANGES THIS SHIFT. AOX3. FORGETFUL. HIGHLY ANXIOUS ABOUT BREATHING. MEDICATED 1X c XANAX & PT ABLE TO REST COMFORTABLY. REPORTS HAVING NIGHTMARES. VSS. SPO2 @87% WHEN ANXIOUS INCREASED O2 TO 3L & SPO2 @92-94%, THIS AM PT SPO2 @97% THEREFORE TITRATED BACK TO 2L O2. LS DIM. E/U RESP. OCC PRODUCTIVE COUGH c PINK TINGED FROTHY SPUTUM. DENIES N/V. REPORTS CHRONIC PAIN BUT DENIES THE NEED FOR ANY MEDICATION. REPOSITIONED PRN. SUPERPUBIC CATH PATENT & DRAINING. AWAITING PLACEMENT. CALL LIGHT IN REACH & PT ABLE TO MAKE NEEDS KNOWN.
--- NOTE | 2022-01-11 17:09 | NUR ---
SHIFT SUMMARY BED BATH GIVEN THIS MORNING AND PT TOLERATED WELL. HAS REPORTED RESP DISTRESS ONE TO TWO TIMES TODAY. EACH TIME HE WAS ASSESSED HIS BREATHING WAS EVEN AND UNLABORED AND ENCOURAGED TO BREATHE IN THROUGH HIS NOSE AND OUT HIS MOUTH WHEN IT WAS NOTED HE WAS SAYING HE WAS SOB BUT NOT BREATHING IN THROUGH HIS NOSE. STATED HE WAS TIRED OF HEARING THAT COMMENT. EXPLAINED TO HIM THATS THE ONE THING HE CAN TO IMPROVE HIS BREATHING. NEB GIVEN THIS MORNING WELL. SATS REMAIN IN MID 90'S AND LUNGS REMAINED UNCHANGED FROM MORNING. GOT SERVED [employer] TODAY. DOZING THIS AFTERNOON.
--- NOTE | 2022-01-12 05:40 | NUR ---
SHIFT SUMMARY NO ACUTE CHANGES THIS SHIFT. PT HIGHLY ANXIOUS ABOUT BREATHING STATES HE IS SOB & CAN'T GET ENOUGH AIR, HOWEVER SPO2 >90% ON 2L O2, LS DIM T/O, HAS LABOURED BREATHING WHEN ANXIOUS. MEDICATED 2X c 0.5MG XANAX, PT DENIES NEED FOR BREATHING TX. VSS. REPORTS PAIN, REPOSITIONED, DENIES NEED FOR PAIN MEDICATION. PICHARDO PATENT & DRAINING DARK YELLOW URINE. HAD MED [employer] BM. CALL LIGHT & BED ALARM IN PLACE. WILL MONITOR.
--- NOTE | 2022-01-12 17:37 | NUR ---
MORENAFIT SUMMARY PT WATCHING TV MOST OF DAY. STATES HE FEELS CONSTIPATED DESPITE BM IN THE NIGHT. REPORTED SOB THIS MORNING AND REPOSITIONED HIM SEVERAL TIMES TO HELP. COUGH NOTED THIS MORNING BUT LESS SO THIS AFTERNOON. NO REPORT OF SOB THIS AFTERNOON.
--- NOTE | 2022-01-13 05:11 | NUR ---
SHIFT SUMMARY PATIENT RESTED ON AND OFF THROUGHOUT THE NIGHT, A&OX3 REPORTING CHRONIC PAIN TO HIS BACK STATES IT IS MANAGEABLE THROUGHOUT THE SHIFT, FREQUENT REPOISITIONING PROVIDED FOR COMFORT AND TO PREVENT SKIN BREAKDOWN, BARRIER CREAM APPLIED, AT SHIFT CHANGE PATIENT WAS REPORTING SHORTNESS OF BREATH AND ANXIETY, PRN XANAX ADMINISTERED WITH NO RESOLVE, VSS ON 3 L VIA NC, HOWEVER HEART RATE WAS NOTED TO BE ELEVATED FROM 80-90 TO 110-115, LAUREN HAS A KNOWN HX OF AFIB WITH ANTICOAG ON MD ABHISHEK NOTIFIED, ORDERS OBTAINED TO INCREASE METOPROLOL FROM 12.5 MG TO 25 MG DAILY WITH A DOSE TO BE GIVEN NOW, METOPROLOL ADMINISTERED HR DECRESED TO 90S AND PATIENT REPORTED IMPROVEMENT WITH SHORTNESS OF BREATH, NO FURTHER REQUESTS NOTED AT THIS TIME
[2022-01-13 05:49] LABS: Anion Gap 2 mmol/L (6-16); Blood Urea Nitrogen 15 mg/dL (8-24); Bun/Creatinine Ratio 21.9 (12.0-20.0); CO2, Blood 37 mmol/L (21-32); Calcium, Blood 8.6 mg/dL (8.5-10.1); Chloride, Blood 101 mmol/L (98-108); Creatinine, Blood 0.68 mg/dL (0.60-1.20); Glomerular Filtration Rate >60 (60-); Glucose, Blood 126 mg/dL (70-99); Sodium, Blood 140 mmol/L (136-145)
--- NOTE | 2022-01-13 13:57 | NUR ---
AFTER BM PT APPEARS TO HAVE SMALL DIME SIZE BREAKDOWN ON SACRAL AREA. APPLIED MEPLOX PAD TO PROTECT AREA FROM FUETHER BREAKDOWN.
--- NOTE | 2022-01-13 16:34 | NUR ---
SHIFT SUMMARY- PT ALERT AND EXPRESSIVE OF NEEDS. PT HAD SEVERAL BM THROUGHOUT SHIFT. PT HAS DISPLAYED SOME SKIN BREAKDOWN AROUND EXISTING SACRAL RASH. MEPOLIX WAS APPLIED WITH EACH CLEANING OF SITE. ADDITIONAL APPLICATION OF NYSTATIN CREAM WAS APPLIED AFTER BED BATH AROUND GROIN AND BOTTOM AREA. PT APPETITE IS POOR BUT DID DRINK PARTIAL OF AN ENSURE FOR INTAKE. PT RESTING COMFORTABLY WITH SIDE RAILS UP AND CALL LIGHT WITHIN REACH.
--- NOTE | 2022-01-13 17:34 | NUR ---
SPOKE WITH DR ABOUT PRESCRIBED MED (SEE EMAR) DISCUSSED PT BLOODY NOSE TODAY AND PAST ISSUES WITH BLOODY NOSE ON DRUG. DR HOLD MED UNTIL TOMORROW.
--- NOTE | 2022-01-13 17:36 | NUR ---
THIS TELEPHONE BETTING CLERK HAS REVIEWED ALL KODY RN'S NOTES AND ASSESSMENTS AND AGREES WITH THEM.
--- NOTE | 2022-01-13 22:29 | NUR ---
PROVIDED NOTIFICATION PATIENT HAVING INCREASED SHORTNESS OF BREATH, REPORTING ANXIETY, PRN ANXIETY MEDICATION ADMINISTERED WITH NO RELIEF OF SHORTNESS OF BREATH, VSS OBTAINED 02 SATS WNL ON 3 L VIA NC, HR NOTICIED AT 115 ON MONITOR, WITH AUSCULTATION HR IS IRREGULAR, THIS SAME SITUATION HAPPENED THE PREVIOUS STOGY ROLLER WELL AND METOPROLOL WAS INCREASED, MD NOTIFIED OF THIS EVENING SITUATION AND PATIENT STATUS, X1 ORDER FOR METOPROLOL PLACED, UPDATED PATIENT ON PLAN OF CARE, PATIENT IN AGREEANCE
--- NOTE | 2022-01-14 05:02 | NUR ---
SHIFT SUMMARY PATIENT RESTED ON AND OFF THROUGHOUT THE NIGHT, SEEMS TO HAVE RESTED BETTER THAN LAST NIGHT, A&O X 2-3 HOWEVER FORGETFUL AND FRUSTRATED THAT HE IS NOT GOING TO A [facility] TODAY (01/14) LIKE HE BELIEVES HE WAS TOLD, EDUCATION PROVIDED ABOUT THE DISCHARGE PROCESS, PATIENT CONTINUES TO HAVE ANXIETY, PRN ANXIETY MEDICATION ADMINISTERED, VSS ON 3 L VIA NC, EXCEPT ELEVATED HR AT THE BEGINNING OF THE SHIFT, SEE PREVIOUS NOTE FOR MORE DETAILS, Q2 HOUR TURNING AND FREQUENT SKIN CARE PROVIDED, CONTINUES TO HAVE A POOR APPETITE, PO INTAKE ENCOURAGED, SUPRA PUBIC CATH IN PLACE AND DRAINING DARK YELLOW URINE
[2022-01-14 05:43] LABS: Hematocrit 32.7 % (37.0-53.0); Hemoglobin 9.3 g/dL (13.5-17.5); Mean Corpuscular HGB 29.2 pg (26.0-34.0); Mean Corpuscular HGB Conc 28.4 g/dL (31.5-36.5); Mean Corpuscular Volume 103 fL (80-100); Platelet Count 190 K/mm3 (150-400); RDW Standard Deviation 60.4 fL (35.1-46.3); Red Blood Cell Count 3.18 M/mm3 (4.30-5.90)
[2022-01-14 05:47] LABS: White Blood Cell Count 55.05 K/mm3 (4.00-11.30)
[2022-01-14 06:05] LABS: Alanine Aminotransfer (ALT/SGP 13 U/L (12-78); Albumin, Blood 2.7 g/dL (3.4-5.0); Albumin/Globulin Ratio 0.8 (0.8-1.8); Alk Phos 111 U/L (50-136); Anion Gap 3 mmol/L (6-16); Aspartate Aminotrans (AST/SGOT 13 U/L (12-37); Bilirubin, Total 0.4 mg/dL (0.1-1.0); Blood Urea Nitrogen 16 mg/dL (8-24); Bun/Creatinine Ratio 20.7 (12.0-20.0); CO2, Blood 36 mmol/L (21-32); Chloride, Blood 103 mmol/L (98-108); Creatinine, Blood 0.77 mg/dL (0.60-1.20); Globulin, Blood 3.4 g/dL (2.2-4.0); Glomerular Filtration Rate >60 (60-); Glucose, Blood 123 mg/dL (70-99); Magnesium, Blood 2.3 mg/dL (1.6-2.4); Potassium, Blood 3.9 mmol/L (3.5-5.5); Sodium, Blood 142 mmol/L (136-145); Total Protein, Blood 6.1 g/dL (6.4-8.2)
--- NOTE | 2022-01-14 11:31 | NUR ---
SPOKE WITH BROTHER GAVE UPDATE OF POSSIBLE PLACEMENT THROUGH . BROTHER STATED HE HAD REACHED OUT TO AND WAS WAITING TO HEAR BACK. GAVE BROTHER AN UPDATE ON GENERAL WELL BEING OF PT.
--- NOTE | 2022-01-14 16:13 | NUR ---
SPOKE WITH DR. DISCUSSED LOW B/P, SEE EMAR. ALSO DISCUSSED EPITAXIS. HOLD MED PER EMAR.
--- NOTE | 2022-01-14 17:28 | NUR ---
SHIFT SUMMARY- PT SLEEPY BUT AROUSABLE THOUGHOUT SHIFT. PT EXPRESSED CONCERNS OF PLACEMENT DURING MOST OF SHIFT. CASE MANAGEMENT REACHED OUT. PT CONTINUES TO HAVE EPITAXIS, HELD MED PER DR, SEE EMAR. PT APPETITE POOR. NO C/O OF PAIN DURING SHIFT. REPOSITIONED TO CONTROL COMFORT, NEEDED. PT RESTING WITH SIDE RAILS UP AND CALL LIGHT IN REACH.
--- NOTE | 2022-01-14 18:18 | NUR ---
THIS KEG HEADER HAS REVIEWED SUSAN GATES'S NOTES AND ASSESSMENTS AND AGREES WITH THEM.
--- NOTE | 2022-01-15 05:31 | NUR ---
SHIFT SUMMARY PATIENT RESTED IN BED THROUGHOUT THE NIGHT, HOWEVER HAD DIFFICULTY SLEEPING D/T ANXIETY, PRN ANXIETY MEDICATION, THERAPEUTIC COMMUNICATION AND DEEP BREATHING EXERCISES PROVIDED, PATIENT CONTINUES TO HAVE DIFFICULTY SLEEPING, Q2 HOUR TURNS PROVIDED, BARRIER CREAM AND MEPLIEX PLACED TO COCCYX FOR SKIN PROTECTION, PATIENT REFUSED ORAL CARE, DRESSING TO COCCYX LEFT HIP AND SUPRA PUBIC CATHETER CHANGED, MINIMAL YELLOW DISCHARGED NOTED FROM CATHETER INSERTION SITE, DRAINING YELLOW URINE, CONTINUES TO HAVE A POOR APPETITE, PO INTAKE ENCOURAGED, VSS ON 3 L VIA NC
--- NOTE | 2022-01-15 16:01 | NUR ---
SHIFT SUMMARY- PT A&O X2. PT APPETITE POOR. PT RELAXED, BEDFAST. B/P LOW AT BEGINING OF SHIFT, MEDICATED PER EMAR. PT TRANSPORTED TO IMAGING FOR CT @1530. PT TOLERATED TRANSFER. PT STATES NARES DRY TODAY, APPLIED MOIST TOWEL AND NOSE SPRAY PER EMAR. POSITIONED PT Q2 HRS. APPLIED CREAM TO SACRAL RASH. PT RESTING WITH SIDE RAILS UP, AND CALL LIGHT AT SIDE.
[2022-01-16 05:17] LABS: Mean Corpuscular HGB 28.8 pg (26.0-34.0); Mean Corpuscular HGB Conc 28.1 g/dL (31.5-36.5); Mean Corpuscular Volume 102 fL (80-100); Mean Platelet Volume 11.1 fL (9.1-12.4); Platelet Count 158 K/mm3 (150-400); RDW Coefficient Variation 15.8 % (11.7-14.2); RDW Standard Deviation 57.9 fL (35.1-46.3); Red Blood Cell Count 3.13 M/mm3 (4.30-5.90); White Blood Cell Count 41.49 K/mm3 (4.00-11.30)
[2022-01-16 05:46] LABS: Albumin, Blood 2.6 g/dL (3.4-5.0); Albumin/Globulin Ratio 0.8 (0.8-1.8); Bilirubin, Total 0.4 mg/dL (0.1-1.0); Bun/Creatinine Ratio 20.1 (12.0-20.0); Calcium, Blood 9.2 mg/dL (8.5-10.1); Creatinine, Blood 0.75 mg/dL (0.60-1.20); Globulin, Blood 3.3 g/dL (2.2-4.0); Potassium, Blood 3.7 mmol/L (3.5-5.5); Total Protein, Blood 5.9 g/dL (6.4-8.2)
--- NOTE | 2022-01-16 06:28 | NUR ---
SHIFT SUMMARY NOC: PT HAS COMPLAINTS OF NOT BEING ABLE TO BREATHE THROUGH NOSE DUE TO NASAL CONGESTION. PT BLEW NOSE AND HAD SCANT AMOUNT DRIED BLOOD AND MUCUS. PT RECIEVED DUONEB TREATMENT WITH POSITIVE RESULT. PT SLEPT MOST OF NIGHT.
--- NOTE | 2022-01-16 17:41 | NUR ---
SHIFT SUMMARY PT REPORTING FEELING SOB THIS MORNING. PT APPEARS TO REPORTS SOB APPROX THE SAME TIME EACH MORNING I HAVE CARED FOR HIM THIS WEEK. SATS IN THE LOW 90% ON 3L/M. O2 TUBING REPLACED DUE TO DIFFICULTY KEEPING IT ON HIS FACE. OBTAINED SALINE NASAL SPRAY WHICH PT REPORTED REALLY HELPED HIS NOSE CLEAR UP SO HE COULD BREATHE THROUGH IT. WORKED WITH P.T. TODAY AND WAS ABLE TO STAND AT SIDE OF BED WITH COAXING AND ENCOURAGEMENT. DOZING ON AND OFF THROUGH REMAINDER OF DAY.
--- NOTE | 2022-01-17 05:49 | NUR ---
SHIFT SUMMARY PT IS A 76 Y/O MALE, ADMITTED FOR HYPOTENTION. HE IS A&O X 2-3, AGITATED AND FORGETFUL AT TIMES. BEDREST, SUPRA-PUBIC PICHARDO IN PLACE PATENT AND DRAINING YELLOW URINE. CURRENTLY ON 3L O2 VIA NC. VITAL SIGNS STABLE. NO ACUTE CHANGES IN PT CONDITION NOTED DURING THE NIGHT. WILL CONTINUE TO MONITOR AND TREAT PER EMAR UNTIL HAND OFF TO DAY SHIFT RN.
--- NOTE | 2022-01-17 14:23 | NUR ---
[facility] CALLED FOR AN UPDATE REGARDING BED. [facility] NOT HAVE ANY BED AVAILABILITY BUT REPORTED THERE ARE BEDS FURTHER OUT SUCH [facility]. SPOKE WITH PT AND BROTHER CHERI AND THEY ARE NOT INTERESTED IN [facility] [place]. DR CABAN UPDATED.
--- NOTE | 2022-01-17 16:25 | NUR ---
SHIFT SUMMARY- PT A/OX3, FORGETFUL AT TIMES. PT ANXIOUS AND IRRITABLE AT TIMES, REPORTS CANNOT BREATHE HOWEVER REFUSES BREATHING TX AND FLONASE. SATS 93% ON 3L N/C, LS DIMINISHED. PRN SALINE NASAL SPRAY GIVEN. TRACE BLE EDEMA NOTED. BATH TODAY WITH MEPILEX PLACED TO SACRAL, REDNESS AND EXCORIATION NOTED TO BUTTOCKS. PG DC'D TODAY, NO IV ACCESS. PT AWAITING BED AT [facility], NO BED AT THIS TIME. NO OTHER ACUTE CHANGES THIS SHIFT.
--- NOTE | 2022-01-18 04:51 | NUR ---
PATIENT HAD A ROUGH NIGHT IN THE EARLY PART OF THE EVENING. HE WAS INCONTINENT OF A LOOSE STOOL, AND THIS WAS VERY PAINFUL TO HIM DUE TO THE EXTENSIVE EXCORIATION ON HIS SACRUM. NYSTATIN CREAM WAS APPLIED GENEROUSLY OVER AREA, AND THEN A COMBINATION OF BARRIER CREAM AND SILICONE WERE APPLIED OVER OUTER AREAS AND DIRECTLY TO RECTAL AREA. NIGHT HOSPITALIST WAS CONTACTED ABOUT CONCERN ABOUT POSSIBLE UTI AND THAT SUPREPUBIC CATH WAS SUPPOSED TO BE CHANGED BY HIS UROLOGIST LAST WEEK. HOSPITALIST ASKED THAT THIS CONCERN BE PASSED ON TO THE DAY HOSPITALIST TO ADDRESS IN THE MORNING.
--- NOTE | 2022-01-18 13:28 | NUR ---
AOX4 WITH FORGEFUL MOMENTS; CAN MAKE NEEDS KNOWN. COOPERATING WITH CARE. STATES PAIN LEVEL OF 7/10; PRN APAP GIVEN. PRN SEROQUEL GIVEN FOR ANXIETY, STATING THAT HE FEELS LIKE HE CANNOT BREATH; O2 STATS 95-96% ON 3L NC. CATHETER IS DRAINING WITH KENZIE URINE THAT IS CLOUDY AND CLOTS. DRESSING AT INSERTION SITE CHANGED, AREA HAS REDNESS. NO ACUTE CHANGES. CALL LIGHT IN REACH.
--- NOTE | 2022-01-19 00:33 | NUR ---
TUBING ATTACHED TO SUPRAPUBIC CATHETER CHANGED. REQUEST FOR URINALYSIS APPROVED AND UA SENT TO LAB FOR PROCESSING. AWAITING RESULTS
[2022-01-19 02:00] LABS: Source, Urine Suprapubic Cath
[2022-01-19 02:03] LABS: Bilirubin, Urine Neg (Neg); Blood, Urine 5+ (Neg); Glucose Qualitative, Urine Neg (Neg); Ketones, Urine 1+ (Neg); Leukocyte Esterase, Urine 3+ (Neg); Nitrite, Urine Pos (Neg); Protein, Urine 2+ (Neg); Urobilinogen, Urine 1+ (Normal)
[2022-01-19 02:26] LABS: Appearance, Urine Cloudy (Clear); Color, Urine Yellow (P-Yellow); Red Blood Cells, Urine 50-100 /hpf (0-2); Squamous Epithelial Cells Not Seen /hpf (Few); White Blood Cells, Urine TNTC /hpf (0-5)
[2022-01-19 02:27] LABS: Amorphous Mod (0-Heavy); Bacteria Many /hpf
--- NOTE | 2022-01-19 04:24 | NUR ---
PATIENT MORE COMFORTABLE AND SLIGHTLY LESS ANXIOUS TONIGHT. CHANGED CATHETER TUBING AND OBTAINED URINE SPECIMEN WHICH SHOWED POSITIVE FOR A UTI. NOTIFIED NIGHT HOSPITALIST OF RESULTS. NO NEW ORDERS RECEIVED. WILL CONTINUE CLOSE AMD SUPPORTIVE CARE AND OBSERVATION. SKIN ON GLUTEAL AREA CLEANSED AND COMBINATION BARRIER CREAM AND NYSTATIN APPLIED FOR PROTECTION.
[2022-01-19 08:14] LABS: Hematocrit 32.8 % (37.0-53.0); Hemoglobin 9.2 g/dL (13.5-17.5); Mean Corpuscular HGB 28.9 pg (26.0-34.0); Mean Corpuscular Volume 103 fL (80-100); Mean Platelet Volume 11.6 fL (9.1-12.4); Platelet Count 162 K/mm3 (150-400); RDW Coefficient Variation 14.7 % (11.7-14.2); RDW Standard Deviation 55.6 fL (35.1-46.3); Red Blood Cell Count 3.18 M/mm3 (4.30-5.90); White Blood Cell Count 44.71 K/mm3 (4.00-11.30)
[2022-01-19 08:40] LABS: Albumin, Blood 2.6 g/dL (3.4-5.0); Albumin/Globulin Ratio 0.7 (0.8-1.8); Bilirubin, Total 0.4 mg/dL (0.1-1.0); Bun/Creatinine Ratio 19.4 (12.0-20.0); Creatinine, Blood 0.78 mg/dL (0.60-1.20); Globulin, Blood 3.5 g/dL (2.2-4.0); Potassium, Blood 4.3 mmol/L (3.5-5.5); Total Protein, Blood 6.1 g/dL (6.4-8.2)
--- NOTE | 2022-01-19 14:21 | NUR ---
AOX4 WITH FORGETFUL MOEMENTS; CAN MAKE NEEDS KNOWN. COOPERATING WITH CARE. PATIENT WAS TIRED IN THE AM AND MORE ALERT THIS AFTERNOON. POWERGLIDE INSERTED IN THE RIGHT UPPER ARM, AND ABX GIVEN. PATIENT IS LESS ANXIOUS TODAY, SCHEDULED XANAX BEING GIVEN, STARTED YESTERDAY AFTERNOON. PATIENT STATED A PAIN LEVEL OF 7/10 THIS AM AND WAS GIVEN APAP WITH GOOD RELIEF. CATHETER IS DRAINING WITH KENZIE URINE, CLOUDY WITH CLOTS; NEW TUBING AT INSERTION SITE PLANNED FOR THURSDAY. DRESSING AT CATHETER INSERTION SITE CHANGED, SLIGHT DRAINAGE AT SITE, NYSTAIN APPLIED TO RED AREA. NYSTAIN AND BARRIER CREAM APPLIED TO REDDENED AREAS AT BUTTUCKS AND GROIN. NO ACUTE CHANGES. CALL LIGHT IN REACH.
--- NOTE | 2022-01-19 16:30 | NUR ---
PT TRANSFERRED TO ROOM 305 WITH HIS BELONGINGS AND SETTLED IN. TOLERATED TRANSFER WELL.
--- NOTE | 2022-01-19 18:23 | NUR ---
NO CHANGED SINCE ARRIVAL TO NEW ROOM. EATING SUPPER. SBP 129 PRIOR TO MIDODRINE SO WAS HELD. NO REPORTS OF FEELING SOB SINCE COMING TO ROOM.
--- NOTE | 2022-01-20 05:27 | NUR ---
SHIFT SUMMARY NO ACUTE CHANGES THIS SHIFT. AOX3, FORGETFUL @TIMES. PLEASENT & COOPERATIVE c CARE. VSS. SPO2 >90% ON 2.5L. STATES HE HAS ANXIETY ABOUT DYING. HIGHLY ANXIOUS & REPORTS DYSPNEA GAVE SCHEDULED XANAX. DENIES N/V OR NEED FOR PAIN MEDS. AWAITING SAFE DC PLAN. CALL LIGHT IN REACH & PT ABLE TO MAKE NEEDS KNOWN.
--- NOTE | 2022-01-20 16:15 | NUR ---
NO ACUTE CHANGES THIS SHIFT. PATIENT [facility] TYLENOL GIVEN X1 THIS SHIFT TO TREAT BACK PAIN. K-PAD ALSO USED TO EASE PAIN. NYSTATING CREAM APPLIED TO GROIN AND BUTTOCKS. MEPILEX DRESSING TO SACRUM REMAINS C/D/I. PATIENT ABLE TO MAKE NEEDS KNOWN. S/P CATH CHANGED TODAY BY MERE NURSES. 18F CATHETER WAS PLACED AND IS PATENT AND DRAINING TO GRAVITY.
[2022-01-21 05:08] LABS: EOSINOPHILS PERCENT AUTO 1 % (0-6); Hematocrit 35.2 % (37.0-53.0); Hemoglobin 9.8 g/dL (13.5-17.5); IMMATURE GRAN ABSOLUTE AUTO 0.15 K/mm3 (0.00-0.10); IMMATURE GRAN PERCENT AUTO 0 % (0-1); LYMPHOCYTES ABSOLUTE AUTO 45.91 K/mm3 (0.84-5.20); LYMPHOCYTES PERCENT AUTO 85 % (21-46); MONOCYTES ABSOLUTE AUTO 1.07 K/mm3 (0.16-1.47); MONOCYTES PERCENT AUTO 2 % (4-13); Mean Corpuscular HGB 28.9 pg (26.0-34.0); Mean Corpuscular HGB Conc 27.8 g/dL (31.5-36.5); Mean Corpuscular Volume 104 fL (80-100); Mean Platelet Volume 11.9 fL (9.1-12.4); NEUTROPHILS ABSOLUTE AUTO 6.31 K/mm3 (1.96-9.15); NEUTROPHILS PERCENT AUTO 12 % (41-73); Platelet Count 199 K/mm3 (150-400); RDW Coefficient Variation 14.8 % (11.7-14.2); RDW Standard Deviation 55.6 fL (35.1-46.3); Red Blood Cell Count 3.39 M/mm3 (4.30-5.90)
[2022-01-21 05:35] LABS: Albumin, Blood 2.8 g/dL (3.4-5.0); Albumin/Globulin Ratio 0.7 (0.8-1.8); Bilirubin, Total 0.4 mg/dL (0.1-1.0); Bun/Creatinine Ratio 17.8 (12.0-20.0); Creatinine, Blood 0.73 mg/dL (0.60-1.20); Globulin, Blood 3.8 g/dL (2.2-4.0); Potassium, Blood 4.5 mmol/L (3.5-5.5); Total Protein, Blood 6.6 g/dL (6.4-8.2)
[2022-01-21 05:36] LABS: BASOPHILS ABSOLUTE AUTO 0.05 K/mm3 (0.00-0.23); BASOPHILS PERCENT AUTO 0 % (0-2)
[2022-01-21 05:37] LABS: White Blood Cell Count 53.79 K/mm3 (4.00-11.30)
[2022-01-21 06:18] LABS: BASOPHILS PERCENT MAN 0 % (0-2); EOSINOPHILS PERCENT MAN 0 % (0-6); LYMPHOCYTES ABSOLUTE MAN 46.79 K/mm3 (0.84-5.20); LYMPHOCYTES PERCENT MAN 87 % (21-46); MONOCYTES PERCENT MAN 0 % (4-13); NEUTROPHILS ABSOLUTE MAN 6.99 K/mm3 (1.96-9.15); SEG NEUTROPHILS PERCENT MAN 13 % (41-73); TOTAL CELLS COUNTED 100
--- NOTE | 2022-01-21 07:46 | NUR ---
SHIFT SUMMARY NO ACUTE CHANGES THIS SHIFT. AOX3. IRRITABLE c STAFF @TIMES. VSS. REPORTS BACK PAIN, MEDICATED c TYLENOL & PT REPORTED RELIEF. STATES DYSPNEA, SPO2 100% ON 2.5L. PT VERY ANXIOUS ABOUT BREATHING & ASKS STAFF TO REMOVE HIS CANCER SO HE CAN BREATH, MEDICATED c XANAX PER ORDERS. KYLEE PATENT & DRAINING. CALL LIGHT IN REACH.
--- NOTE | 2022-01-21 18:42 | NUR ---
PATIENT A/O X3, VERY ANXIOUS AT TIMES. XANAX SCHEDULED TO TREAT ANXIETY. THORACENTESIS ORDERED FOR TODAY, BUT PUT ON HOLD UNTIL TOMORROW DUE TO ELIQUIS. INSTRUCTED TO HOLD ELIQUIS TONIGHT AND TOMORROW MORNING AND PATIENT WILL NEED A COVID TEST BEFORE PROCEDURE TOMORROW. VSS, ON 2.5L VIA NC TO MAINTAIN SATS. MIDODRINE SCHEDULED TO TREAT HYPOTENSION WITH GOOD RESULTS. MEPILEX DRESSING TO SACRUM REMAINS C/D/I. NYSTATIN CREAM APPLIED TO GROIN AND BUTTOSCKS RASH. S/P CATH TO GRAVITY WITH ADEQUATE U/O. TOLERATING MECH SOFT, ADA DIET. PATIENT CONTIN[facility].
--- NOTE | 2022-01-22 07:39 | NUR ---
SHIFT SUMMARY: NO SIGNIFICANT EVENTS ON NOC. PATIENT REMAINS BEDBOUD, ANXIOUS, FREQUENT CALLS, LACKS MOTIVATION TO PERFOMR TASKS, CAN BE ARGUMENTATIVE WITH STAFF WHEN ENCOURAGED TO DO SO. SUPRAPUBIC IN PLACE DRAINING ADEQUATE YELLOW URINE. INSERTION SITE COVERED WITH CHG GEL AND TEGADERM DRESSING PLACED WITH CATH CHANGE 01/20. GROIN REAMAINS RED/YEASTY NYSTAIN CREAM APPLIED. MEPILEX TO SACRUM CDI. TURNED Q2. COARSE LUNGS. 2.5L O2 (BASE). ELIQUIS HELD IN ANTICIAPTION OF THORACENTESIS TODAY.
[2022-01-22 07:43] LABS: BASOPHILS ABSOLUTE AUTO 0.15 K/mm3 (0.00-0.23); BASOPHILS PERCENT AUTO 0 % (0-2); EOSINOPHILS ABSOLUTE AUTO 0.27 K/mm3 (0.00-0.68); EOSINOPHILS PERCENT AUTO 1 % (0-6); Hematocrit 32.4 % (37.0-53.0); Hemoglobin 9.2 g/dL (13.5-17.5); IMMATURE GRAN PERCENT AUTO 0 % (0-1); LYMPHOCYTES PERCENT AUTO 84 % (21-46); MONOCYTES ABSOLUTE AUTO 0.89 K/mm3 (0.16-1.47); MONOCYTES PERCENT AUTO 2 % (4-13); Mean Corpuscular HGB 29.3 pg (26.0-34.0); Mean Corpuscular HGB Conc 28.4 g/dL (31.5-36.5); Mean Corpuscular Volume 103 fL (80-100); Mean Platelet Volume 11.6 fL (9.1-12.4); NEUTROPHILS ABSOLUTE AUTO 5.88 K/mm3 (1.96-9.15); NEUTROPHILS PERCENT AUTO 13 % (41-73); Platelet Count 173 K/mm3 (150-400); RDW Coefficient Variation 14.7 % (11.7-14.2); RDW Standard Deviation 55.4 fL (35.1-46.3); Red Blood Cell Count 3.14 M/mm3 (4.30-5.90); White Blood Cell Count 46.39 K/mm3 (4.00-11.30)
[2022-01-22 07:53] LABS: Bun/Creatinine Ratio 19.2 (12.0-20.0); Calcium, Blood 8.9 mg/dL (8.5-10.1); Creatinine, Blood 0.73 mg/dL (0.60-1.20); Potassium, Blood 4.2 mmol/L (3.5-5.5)
[2022-01-22 09:51] LABS: SARS-Cov-2 (COVID-19) PCR, MMC NEGATIVE (NEGATIVE)
--- NOTE | 2022-01-22 18:30 | NUR ---
SHIFT SUMMARY PT IS ALERT AND ORIENTEDx4, COOPERTIVE WITH STAFF, BUT FREQUENTLY USES CALL LIGHT TO HAVE STAFF ASSIST HIM. EDUCATED PT ON IMPROTANCE OF ATTEMPTING TO PERFORM SOME OF THE ACTIVITIES INDEPENDANTLY TO PROMOTE STRENGTH BUILDING. TODAY PT C/O DIFFICULTY SWALLOWING. SPEECH THERAPY SAW PT AND MADE ADJUSTMENTS TO PT'S DIET PARTIALLY ON PT REQUEST. HR ELEVATED THIS MORNING, BUT IMPROVED BACK TO BASELINE. PT'S ELIQUIS ON HOLD FOR THORACENTSIS PLANNED FOR TOMORROW ONCE PT IS OUTSIDE ELIQUIS ADMIN WINDOW. OTHER VITALS HAVE REMAINED STABLE.
--- NOTE | 2022-01-23 06:22 | NUR ---
SHIFT SUMMARY: PATIENT REMAINS ON 2.5L VIA NC. COARSE LUNGS T/O. COMPLAINING OF INCREASED DYSPNEA PATIENT SAT > 95%. PATIENT STATES DYSPNEA IS DUE TO ANXIETY HOWEVER INCREASED WHEEZING NOTED, THUS RT SUMMONED TO PROVIDE TREATMENT. PATIENT VERBALIZED RELEIF OF SYMPTOMS. ELIQUIS HELD IN ANTICIPATION OF THORACENTESIS TODAY. ABLE TO SWALLOW MULTIPLE PILLS WHOLE WITH WATER ON NOC. NO DIFFICULTY SWALLOWING. CAN BE RESISTIVE TO CARE, LESS ARGUMENTATIVE THAN PREVIOUS SHIFTS. SUPRAPUBIC WITH YELLOW URINE. INSERTION SITE WITH MODERATE DRAINING. CLEANSED AND NEW SPLIT GAUZE APPLIED. MEPILEX TO COCCYX REMOVED SKIN INTACT WITHOUT REDNESS UNDERNEATH. SKIN DISTAL TO MEPILEX HAS SOME SHEARING. BARRIER CREAM APPLIED TO SHEARED AREAS AND NYSTATIN APPLIED TO DUSTY, BUTTOCKS, AND FOLDS OF PANNUS.
[2022-01-23 14:01] LABS: Automated BF RBC Count 1.459 M/mm3 (0-0); Automated BF WBC Count 2.537 K/mm3 (0-999); Body Fluid WBC Count 2537 /mm3 (0-999); RBC Count, Body Fluid 1459000 /mm3 (0-0)
[2022-01-23 14:20] LABS: Albumin, Body Fluid 1.8 g/dL; Glucose, Body Fluid 107 mg/dL; Lactate Dehydrogenase, Body Fl 363 U/L; Protein, Body Fluid 3.4 g/dL
[2022-01-23 14:48] LABS: Color, Body Fluid Red (None-Yellow)
[2022-01-23 14:49] LABS: Appearance, Body Fluid Bloody (Clear)
[2022-01-23 14:51] LABS: Total Cell Count, Body Fluid 100
[2022-01-23 15:09] LABS: Amylase, Body Fluid 12 U/L
[2022-01-23 15:34] LABS: pH, Body Fluid 7.5
--- NOTE | 2022-01-23 18:20 | NUR ---
SHIFT SUMMARY- PT COOPERATIVE WITH MEDICATION/PROCEDURAL NEEDS THROUGHOUT SHIFT. PT TRANSFER TO AWNING HANGER HELPER FOR CENTESIS IN AM. PT STATED RR SEEM EASIER. PT REPOSITIONED THROUGHOUT SHIFT. PT WITH CALL LIGHT IN HAND AND SIDE RAILS UP FOR SAFETY.
--- NOTE | 2022-01-23 18:54 | NUR ---
Review of prognosis with care managers and plan to dischare.
[2022-01-24 05:10] LABS: Hematocrit 31.9 % (37.0-53.0); Hemoglobin 9.1 g/dL (13.5-17.5); Mean Corpuscular HGB 29.3 pg (26.0-34.0); Mean Corpuscular HGB Conc 28.5 g/dL (31.5-36.5); Mean Corpuscular Volume 103 fL (80-100); Mean Platelet Volume 11.5 fL (9.1-12.4); Platelet Count 171 K/mm3 (150-400); RDW Coefficient Variation 14.6 % (11.7-14.2); RDW Standard Deviation 53.9 fL (35.1-46.3); Red Blood Cell Count 3.11 M/mm3 (4.30-5.90)
[2022-01-24 05:33] LABS: Calcium, Blood 9.1 mg/dL (8.5-10.1); Creatinine, Blood 0.76 mg/dL (0.60-1.20); Potassium, Blood 4.3 mmol/L (3.5-5.5)
[2022-01-24 06:13] LABS: BASOPHILS PERCENT MAN 0 % (0-2); EOSINOPHILS PERCENT MAN 0 % (0-6); LYMPHOCYTES ABSOLUTE MAN 41.26 K/mm3 (0.84-5.20); LYMPHOCYTES PERCENT MAN 94 % (21-46); MONOCYTES PERCENT MAN 0 % (4-13); NEUTROPHILS ABSOLUTE MAN 2.63 K/mm3 (1.96-9.15); SEG NEUTROPHILS PERCENT MAN 6 % (41-73); TOTAL CELLS COUNTED 100
--- NOTE | 2022-01-24 07:31 | NUR ---
SHIFT SUMMARY - NO ACUTE CHANGES THROUGHOUT THIS SHIFT. PT HAS CONTINUED TO USE HIS CALL LIGHT OFTEN FOR MINOR ITEMS - IE DOESN'T LIKE THE WAY HIS FAN IS POSITIONED, PLACE MORE BLANKETS ON, ETC. PT MEDICATED X2 WITH NORCO. PT HAS BEEN OFF/ON SLEEPING FOR APPX 7-8 HOURS TONIGHT. PT IS AWAITING PLACEMENT. FLUIDS AT BEDSIDE. CALL LIGHT WITHIN REACH. BED IN LOW POSITION.
--- NOTE | 2022-01-24 10:00 | NUR ---
PT FLAT ANDANXIOUS. COOPERATIVE WITH CARE. A/O X3. DENIES PAIN. NO TELE. H/.R REGULAR. NO MURMUR. BREATIHNG IS EASY AND UNLABORED. COAR CRACKLES THROUGHOUT. C/O SOB AND ASKS TO TURN UP O2. SPO2 CONSISTENT OVER 90%. PT AMBULATED TO COMMODE WITH PT AND MYSELF. SMALL BOWEL MOVEMENT. PT STATES HE FEELS IF HE NEEDS TO USE THE RESTROOM BUT IT IS STUCK. SUPRAPUBIC CATHETER IN PLACE DRAINING TO GRAVITY. YELLOW URINE PRESENT. MEPLEX PLACED ON COCCYX DUE TO SKIN BREAKDOWN. COCCYX IS RED/PURPLE AND HAS OPEN WOUNDS. SOME BLOODY DISCHARGE FROM WOUNDS. WILL CONTINUE TO MONITOR. BED IN LOW POSITION, CALL LIGHT IN REACH, CALLS APPROPRIATLEY.
[2022-01-24 14:06] LABS: Influenza A, PCR NEGATIVE (NEGATIVE); Influenza B, PCR NEGATIVE (NEGATIVE); Resp Syncytial Virus, PCR NEGATIVE (NEGATIVE); SARS-Cov-2 (COVID-19) PCR, MMC NEGATIVE (NEGATIVE)
--- NOTE | 2022-01-24 18:26 | NUR ---
PT FLAT IN AFFECT AND ANXIOUS. A/O X3. C/O PAIN IN NECK. NO TELE. NO MURMUR NOTED. H/R REGULAR. LUNGS COARSE THROUGHOUT. ON 2L VIA NASAL CANNULA. PT FREQENTLY C/O SOB WHEN FEELING ANXIOUS. SPO2 CHECKED FREQUENTLY. REMAINED OVER 90%. PT COUGHING UP THICK GREEN SPUTUM. SUPRAPUBIC PICHARDO CATH IN PLACE. CLEAR YELLOW URINE DRAINING TO GRAVITY. SMALL BOWEL MOVEMENT. PT STATES HE FEELS IF HE HAS A BM STUCK AND HE CANNOT PUSH IT OUT. COCCYX IS RED/PURPLE IN COLOR AND HAS SOME OPEN WOUNDS. PT TURNED Q2. +2 PITTING EDEMA NOTED ON BILAT LOWER EXTREMITES. PT FREQUENLTY USES CALL LIGHT. BED IN LOW POSITION, CALL LIGHT IN REACH, CALLS APPROPRIATLEY.
--- NOTE | 2022-01-24 18:55 | NUR ---
AGREEE WITH STUDENT NOTES AND DOCUMENTATIONS
--- NOTE | 2022-01-25 04:43 | NUR ---
CERAMIC CHEMIST SUMMARY ADMITTED FOR HYPOTENSION (RESOLVED). PT IS DNR. AWAITING DISCHARGE LONG-TERM PLACEMENT WITH FAMILY. HE CONTINUES TO COMPLAIN OF NECK PAIN AND HEADACHE. MEDICATED X1 PER MAR. PT CONTINUES TO HAVE ANXIETY ABOUT NIGHT MEDICATIONS BUT DENIES ANY COMPLAINTS OF SOB. RESTING ON 2L BY NC. PT UNWILLING TO ADJUST BED ON HIS OWN AND USES CALL LIGHT FREQUENTLY FOR PILLOW REPOSITIONING DESPITE HIS BEING ABLE TO ASSIST IN REPOSITIONING HIMSELF IN BED. CHRONIC SUPRAPUBIC CATHETER PATENT AND DRAINING. ALERT AND ORIENTED X4. PT WITH VERY DEPRESSED AND LABILE MOOD.
--- NOTE | 2022-01-25 16:14 | NUR ---
DAY SHIFT SUMMARY 76 YR OLD MALE PT WITH HYPOTENSION. C/O CHRONIC NECK PAIN, MEDICATED PER EMAR. 2L O2 NC. WAITING FOR NURSING HOME CARE PLACEMENT. WOUNDS TO BUTTOCK AREA WITH MEPILEX DRESSINGS IN PLACE. PRODUCTIVE COUGH WITH NUNEZ/PINK TINGED SPEUTUM. PT HAS SUPRAPUBIC CATH INTACT AND PATENT DRAINING VIA GRAVITY. CALL LIGHT WITHIN REACH AND ABLE TO CALL APPROPRIATE.
--- NOTE | 2022-01-25 23:41 | NUR ---
WHEN ASSESSING PT, NOTED RIGHT FOOT/CALF COOL TO TOUCH BUT LEFT FOOT/CALF WARM AND SLIGHT SWELLING. PULSE STRONGER IN LEFT THAN THAT OF RIGHT. NO C/O PAIN OF BLE, ONLY PAIN VOICED WAS OF BACK AND NECK - HX CHRONIC NECK PAIN. CALL PLACED TO MD CERTIFIED PROFESSIONAL MIDWIFE (DR SOTO), MD ACKNOWLEDGED, INSTRUCTED TO HAVE AM SHIFT PASS IT ON TO AM MD FOR FOLLOW UP AND EVAL. WILL PASS THIS ON TO AM JAMES AND IN TURN WHO WILL NOTIFY AM MD.
--- NOTE | 2022-01-26 04:34 | NUR ---
RESTAURANT HOST/HOSTESS SUMMARY PT HX OF RESP FAILURE, LUNG CA W/METS, AFIB, CAD, DT2, HTN, UTI, CHF. PT POLITE W/STAFF. PT C/O NECK PAIN AND DIFFICULTY GETTING COMFORTABLE. PT UNABLE TO COMMENT ON WHAT WOULD MAKE HIM COMFORTABLE. PT AXIOUS ABOUT POSITONING AND BREATHING THROUGH THE NIGHT. PT A/OX3. SUPRAPUBIC CATH IN PLACE. PT COUGH THROUGH THE NIGHT W/SCANT REDDISH/YELLOW SPUTUM. PT ON 2.5L O2 NC. ASSESSMENT OF BILATERAL LE; RT LEG PALE AND COOL TO TOUCH, CAP REFILL >3 SECONDS; LLE IS SWOLLEN AND RED W/BRISK CAP REFILL. RN NOTIFIED THE DOCTOR; ADVISED PASS INFO TO DAY SHIFT AND MONITOR. PT HAS WOUNDS TO BILATERAL BUTTOCKS. MEPILEX ON EACH BUTTOCK CHANGED. PT CALL LIGHT IN REACH.
[2022-01-26 17:14] LABS: Hematocrit 31.6 % (37.0-53.0); Hemoglobin 9.2 g/dL (13.5-17.5); Mean Corpuscular HGB 29.7 pg (26.0-34.0); Mean Corpuscular HGB Conc 29.1 g/dL (31.5-36.5); Mean Corpuscular Volume 102 fL (80-100); Mean Platelet Volume 11.7 fL (9.1-12.4); Platelet Count 185 K/mm3 (150-400); RDW Coefficient Variation 14.6 % (11.7-14.2); White Blood Cell Count 48.89 K/mm3 (4.00-11.30)
[2022-01-26 17:32] LABS: Uric Acid, Blood 4.9 mg/dL (3.5-7.2)
[2022-01-26 17:33] LABS: Albumin, Blood 2.5 g/dL (3.4-5.0); Anion Gap 1 mmol/L (6-16); Blood Urea Nitrogen 13 mg/dL (8-24); Bun/Creatinine Ratio 19.8 (12.0-20.0); CO2, Blood 36 mmol/L (21-32); Calcium, Blood 8.8 mg/dL (8.5-10.1); Chloride, Blood 103 mmol/L (98-108); Creatinine, Blood 0.66 mg/dL (0.60-1.20); Glomerular Filtration Rate 97 (60-); Glucose, Blood 132 mg/dL (70-99); Phosphorus, Blood 3.9 mg/dL (2.5-4.9); Potassium, Blood 4.2 mmol/L (3.5-5.5); Sodium, Blood 140 mmol/L (136-145)
[2022-01-26 17:44] LABS: BASOPHILS PERCENT MAN 0 % (0-2); EOSINOPHILS ABSOLUTE MAN 0.48 K/mm3 (0.00-0.68); EOSINOPHILS PERCENT MAN 1 % (0-6); LYMPHOCYTES ABSOLUTE MAN 42.04 K/mm3 (0.84-5.20); LYMPHOCYTES PERCENT MAN 86 % (21-46); MONOCYTES ABSOLUTE MAN 0.48 K/mm3 (0.16-1.47); MONOCYTES PERCENT MAN 1 % (4-13); NEUTROPHILS ABSOLUTE MAN 5.86 K/mm3 (1.96-9.15); SEG NEUTROPHILS PERCENT MAN 12 % (41-73); TOTAL CELLS COUNTED 100
[2022-01-26 17:56] LABS: International Normalized Ratio 1.14; Prothrombin Time Results 11.9 Sec (9.7-11.5)
--- NOTE | 2022-01-26 18:14 | NUR ---
DAY SHIFT SUMMARY 76 YR OLD MALE PT ADMITTED WITH HYPOTENSION. COMPLAINT OF NECK PAIN AND CONSTIPATION, MEDICATED PER EMAR. CT SCAN SCHEDULED FOR END OF SHIFT. ULTRASOUND PERFORMED THIS AM. PT TO START ON HEPARIN DRIP ON PHOTOGRAPHERS' MODEL. CALL LIGHT WITHIN REACH AND ABLE TO CALL APPROPRIATELY. WOUNDS TO BUTTOCK AREA CLEANED AND MEPILEX CHANGED TO AREA. PT ON 2L O2 NC.
--- NOTE | 2022-01-26 20:55 | NUR ---
RETURNED FROM RADIOLOGY/MRI EARLIER. HEPARIN DRIP STARTED PER MD ORDERS, AT 18 U/K.8 ML/HR. CALL LIGHT IN REACH
--- NOTE | 2022-01-26 23:11 | NUR ---
HAS BEEN REPOSITIONED OFTEN, PAIN MEDS GIVEN AND STILL ANXIOUS. CALL PLACED TO MD PROJ MGR, ORDERS OBTAINED. SEE MAR FOR DETAILS
[2022-01-27 03:17] LABS: BASOPHILS ABSOLUTE AUTO 0.08 K/mm3 (0.00-0.23); BASOPHILS PERCENT AUTO 0 % (0-2); EOSINOPHILS ABSOLUTE AUTO 0.34 K/mm3 (0.00-0.68); EOSINOPHILS PERCENT AUTO 1 % (0-6); Hematocrit 29.5 % (37.0-53.0); Hemoglobin 8.6 g/dL (13.5-17.5); IMMATURE GRAN ABSOLUTE AUTO 0.07 K/mm3 (0.00-0.10); IMMATURE GRAN PERCENT AUTO 0 % (0-1); LYMPHOCYTES ABSOLUTE AUTO 30.62 K/mm3 (0.84-5.20); LYMPHOCYTES PERCENT AUTO 84 % (21-46); MONOCYTES PERCENT AUTO 2 % (4-13); Mean Corpuscular HGB 29.6 pg (26.0-34.0); Mean Corpuscular HGB Conc 29.2 g/dL (31.5-36.5); Mean Corpuscular Volume 101 fL (80-100); Mean Platelet Volume 11.5 fL (9.1-12.4); NEUTROPHILS ABSOLUTE AUTO 4.71 K/mm3 (1.96-9.15); NEUTROPHILS PERCENT AUTO 13 % (41-73); Platelet Count 158 K/mm3 (150-400); RDW Coefficient Variation 14.5 % (11.7-14.2); RDW Standard Deviation 53.3 fL (35.1-46.3); Red Blood Cell Count 2.91 M/mm3 (4.30-5.90); White Blood Cell Count 36.62 K/mm3 (4.00-11.30)
[2022-01-27 03:33] LABS: Albumin, Blood 2.3 g/dL (3.4-5.0); Anion Gap 3 mmol/L (6-16); Blood Urea Nitrogen 11 mg/dL (8-24); Bun/Creatinine Ratio 17.7 (12.0-20.0); CO2, Blood 35 mmol/L (21-32); Calcium, Blood 8.4 mg/dL (8.5-10.1); Chloride, Blood 103 mmol/L (98-108); Creatinine, Blood 0.62 mg/dL (0.60-1.20); Glomerular Filtration Rate 99 (60-); Glucose, Blood 118 mg/dL (70-99); Phosphorus, Blood 3.9 mg/dL (2.5-4.9); Potassium, Blood 4.1 mmol/L (3.5-5.5); Sodium, Blood 141 mmol/L (136-145)
--- NOTE | 2022-01-27 04:38 | NUR ---
CALL RECEIVED FROM PHARMACY. APTT 139.0. PHARM INSTRUCTED TO HOLD HEPARIN DRIP X 1 HR THEN START AGAIN AT 15 U/KG PER HR AFTER. HEPARIN PLACED ON HOLD AT 0400. PT ASYMPTOMATIC. WILL RESTART IT AT 0500. CALL LIGHT IN REACH
--- NOTE | 2022-01-27 04:50 | NUR ---
MEDICAL COLLECTIONS SUMMARY RETURNED FROM RADIOLOGY AT SHIFT [facility] HAVING HAD CT/ULTRASOUND OF LEGS. PLACED ON HEPARIN DRIP AT 18 U/KG PER HR. AWAKE AT INTERVALS, ANXIOUS AT TIMES. WAS NOTIFIED AND ORDERED SEROQUEL 50 MG PO FOR REST. MED GIVEN AND WAS EFFECTIVE. INCONT OF FECES A FEW TIMES, WAS CLEANED UP. SUPRAPUBIC CATH DRAINING WELL. LABS DRAWN THIS AM, APTT ELEVATED. PHARM ORDERED HEPARIN HELD FOR ONE HOUR AND WILL BE RESTARTED AT 15 U/KG AT 0500. CONTINUES TO REST QUIETLY. CALL LIGHT IN REACH. ASYMPTOMATIC.
--- NOTE | 2022-01-27 18:53 | NUR ---
END OF SHIFT SUMMARY: PATIENT PAIN CONTROLLED WITH PRN PAIN MEDICATIONS AND REPOSITIONING. PATIENT IS ANXIOUS AT TIMES. CLEAR COMMUNICATION AND PRN MEDICATIONS HELP ALLEVIATE PATIENT'S ANXIETY. PATIENT'S BLE WERE WARM, EQUAL AND NORMAL COLOR, AND PEDIS PULSES WERE PALPABLE THROUGHOUT SHIFT. DR. ECHOLS AT BEDSIDE THIS MORNING TO VISIT PATIENT. NO PROCEDURE INDICATED AT THIS TIME PER DR. ECHOLS. PATIENT AGREEABLE TO REPOSITIONING AND OTHER CARE.
--- NOTE | 2022-01-28 04:43 | NUR ---
HOT DIP TINNING SUPERVISOR SUMMARY PT WAITING ON PET SCAN T/QUAL F/[facility] CARE. PT HX RESP FAILURE, LUNG CA E/METS, AFIB, CAD, DT2, UTI, HTN, CHF. PT IS BEDFAST AND 2 PERSON ASSIST F/POSITION CHANGES. PT CHRONIC PAIN IN BACK/NECK CONTROLLED W/PRN MEDS AND REPOSITIONING. PT IS ANXIOUS AT TIMES. SUPRAPUBIC CATH PATENT AND DRAINING TO GRAVITY. INCONT OF BOWELS; ONE BM IN THE NIGHT; PT CHANGED AND NEW MEPILEX APPLIED. PT SOB WHEN LAID FLAT TO CLEAN/CHANGE. PT IS ANXIOUS ABOUT BREATHING AND CLEARING THROAT OF SPUTUM. SPUTUM PRODUCTION IS LESSENING BUT REMAINS BROWN/RED TINGED. PT BLE REMAINED EQUAL IN TEMP/SIZE AND PULSES PALPATED. PT ABLE TO USE CALL LIGHT AND ADVOCATE NEEDS; CALL LIGHT IN REACH.
--- NOTE | 2022-01-28 17:16 | NUR ---
PT HAS HAD NOT ACUTE CHANGES. PT IS AO, BUT GET GRUMPY ABOUT CARE. PT KEEPS SAYING HE NEEDS TO HAVE A BM, BUT ALREADY HAD ONE TODAY. PT WILL BE GIVEN A SUPPOSITORY HE HAS BEEN PUTTING OFF ALL DAY ORDERED BY DR DAVILA. PT HAS BEEN GOTTEN UP IN CHAIR AND CAN CALL APPROPRIATELY. NO DISTRESS NOTED CALL LIGHT WITHIN REACH WILL CONITNUE TO MONITOR AND CHANGE PT'S POSITION Q2 HRS.
--- NOTE | 2022-01-29 03:16 | NUR ---
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 TOLERATING MEDS WELL. MEPILEX DRESSINGS CHANGED ON HIS BUTTOCKS. NOTE SLIGHT BLEEDING OF SORES. ENCOURAGED TO KEEP OFF AREA, REPOSITIONED OFTEN, INTERMITTENT FLOATING BUTTOCKS ON PILLOWS. RESTING QUIETLY AT THIS TIME. O2 PER NC. CALL LIGHT IN REACH
[2022-01-29 16:15] LABS: Hemoglobin 8.9 g/dL (13.5-17.5); Mean Corpuscular HGB 29.5 pg (26.0-34.0); Mean Corpuscular HGB Conc 28.7 g/dL (31.5-36.5); Mean Corpuscular Volume 103 fL (80-100); Mean Platelet Volume 11.3 fL (9.1-12.4); NRBC ABSOLUTE 0.02 K/mm3 (0.00-0.02); Platelet Count 176 K/mm3 (150-400); RDW Coefficient Variation 14.4 % (11.7-14.2); RDW Standard Deviation 53.7 fL (35.1-46.3); Red Blood Cell Count 3.02 M/mm3 (4.30-5.90); White Blood Cell Count 45.19 K/mm3 (4.00-11.30)
[2022-01-29 16:29] LABS: Albumin, Blood 2.4 g/dL (3.4-5.0); Anion Gap 0 mmol/L (6-16); Blood Urea Nitrogen 13 mg/dL (8-24); Bun/Creatinine Ratio 18.3 (12.0-20.0); CO2, Blood 37 mmol/L (21-32); Chloride, Blood 104 mmol/L (98-108); Creatinine, Blood 0.71 mg/dL (0.60-1.20); Glomerular Filtration Rate 95 (60-); Glucose, Blood 197 mg/dL (70-99); Phosphorus, Blood 3.3 mg/dL (2.5-4.9); Potassium, Blood 4.6 mmol/L (3.5-5.5); Sodium, Blood 141 mmol/L (136-145)
--- NOTE | 2022-01-29 16:56 | NUR ---
Patient is notably somnolant today. Blood pressure was below the typical range this morning and was noted in EMR. Held metroprolol, gabapentin, and furosemide and notified the provider. Midodrine was administered. When blood pressure was reevaluated later in the afternoon it was still below the typical range and Dr. Ordoñez was notified, changes reflected in EMR. Other medications were administered without difficutly, patient tolerated well. Patient consumed half of the prescribed dose of miralax but refused the second half. Mepilex was changed, some light bleeding was noted on site of injury but patient tolerated dressing change well. Powerglide dressing was changed at about 1700. Patient was cooperative with care and tolerated well. Fleet enema was administered as ordered but produced no notable bowel movement. Call light was left within reach. Will continue to monitor.
--- NOTE | 2022-01-29 17:11 | NUR ---
PLEASE REFER TO STUDENT NOTE IN NURSES NOTE FOR SHIFT SUMMARY.
[2022-01-29 17:31] LABS: BASOPHILS PERCENT MAN 0 % (0-2); EOSINOPHILS ABSOLUTE MAN 0.45 K/mm3 (0.00-0.68); EOSINOPHILS PERCENT MAN 1 % (0-6); LYMPHOCYTES % ATYPICAL MANUAL 11 % (0-0); LYMPHOCYTES ABSOLUTE MAN 38.41 K/mm3 (0.84-5.20); LYMPHOCYTES PERCENT MAN 74 % (21-46); MONOCYTES PERCENT MAN 2 % (4-13); NEUTROPHILS ABSOLUTE MAN 5.42 K/mm3 (1.96-9.15); SEG NEUTROPHILS PERCENT MAN 12 % (41-73); TOTAL CELLS COUNTED 100
--- NOTE | 2022-01-30 04:26 | NUR ---
PT IS ALERT, HAS MOMENTS OF CONFUSION BUT ABLE TO ANSWER ORIENTATION QUESTIONS APPROPRIATELY. PT HAS BEEN INCONTINENT THIS SHIFT, HAS SUPRAPUBIC CATHETER. PT WAS ANXIOUS DURING HS MED PASS, PRN XANAX GIVEN WITH GREAT RESULTS. PT ABLE TO SLEEP 6+ HOURS THIS SHIFT. HAS BEEN TURNED Q2H FOR SORE ON BUTTOCK. DENIES PAIN. WILL CONTINUE TO MONITOR THIS PATIENT.
[2022-01-30 05:07] LABS: Hematocrit 29.9 % (37.0-53.0); Hemoglobin 8.5 g/dL (13.5-17.5); Mean Corpuscular HGB Conc 28.4 g/dL (31.5-36.5); Mean Corpuscular Volume 102 fL (80-100); Mean Platelet Volume 11.5 fL (9.1-12.4); Platelet Count 160 K/mm3 (150-400); RDW Coefficient Variation 14.3 % (11.7-14.2); RDW Standard Deviation 53.3 fL (35.1-46.3); Red Blood Cell Count 2.93 M/mm3 (4.30-5.90)
[2022-01-30 05:27] LABS: Albumin, Blood 2.4 g/dL (3.4-5.0); Anion Gap 2 mmol/L (6-16); Blood Urea Nitrogen 13 mg/dL (8-24); Bun/Creatinine Ratio 17.9 (12.0-20.0); CO2, Blood 36 mmol/L (21-32); Chloride, Blood 106 mmol/L (98-108); Creatinine, Blood 0.73 mg/dL (0.60-1.20); Glomerular Filtration Rate 94 (60-); Glucose, Blood 119 mg/dL (70-99); Phosphorus, Blood 3.5 mg/dL (2.5-4.9); Potassium, Blood 4.4 mmol/L (3.5-5.5); Sodium, Blood 144 mmol/L (136-145)
--- NOTE | 2022-01-30 08:43 | NUR ---
PT STATED THAT HE NEEDS A PET SCAN AND WHEN TOLD BY MULTIPLE STAFF THAT THIS HOSPITAL CANNOT PROVIDE THAT SERVICE HE STATES STAFF IS LYING TO HIM. HE ASL CLAIMS THAT BECAUSE THERE IS NO ENEMA ORDERED THAT WE "WON'T HELP HIM AND WE ARE LEAVING HIM TO SUFFER" HE HAS NOT YET HAD A BOWEL MOVEMENT. THIS RN GAVE SCHEDULED AND PRN BOWEL CARE MEDS AND INSTRUCTED PT TO GIVE THEM SOME TIME TO WORK TODAY. HE REFUSED PRUNE JUICE AND BUTTER MIXTURE. WILL CONTINUE TO REPORT ON CHANGES
--- NOTE | 2022-01-30 19:20 | NUR ---
SHIFT SUMMARY NO ACUTE CHANGES. PT IS STILL VERY IRRITABLE WITH STAFF WHEN NEEDS ARE NOT IMMEDIATELY MET. STILL COMPLAINING OF SOB, BUT CAN BE TREATED BEST WITH XANAX WHEN BP ALLOWS. STILL WAITING FOR PLACEMENT. WILL CONTINUE OT MONITOR.
--- NOTE | 2022-01-31 07:15 | NUR ---
SHIFT SUMMARY PATIENT ALERT AND ORIENTED. HAD NO COMPLAINTS OF PAIN. MEDICATED PER EMAR FOR ANXIETY. CALL LIGHT WITHIN REACH. REPORT GIVEN TO ONCOMING RN.
[2022-01-31 10:06] LABS: Albumin, Blood 2.6 g/dL (3.4-5.0); Anion Gap 2 mmol/L (6-16); Blood Urea Nitrogen 14 mg/dL (8-24); Bun/Creatinine Ratio 19.7 (12.0-20.0); CO2, Blood 36 mmol/L (21-32); Calcium, Blood 8.8 mg/dL (8.5-10.1); Chloride, Blood 104 mmol/L (98-108); Creatinine, Blood 0.71 mg/dL (0.60-1.20); Glomerular Filtration Rate 95 (60-); Glucose, Blood 200 mg/dL (70-99); Phosphorus, Blood 3.2 mg/dL (2.5-4.9); Potassium, Blood 4.4 mmol/L (3.5-5.5); Sodium, Blood 142 mmol/L (136-145)
--- NOTE | 2022-01-31 18:47 | NUR ---
SHIFT SUMMARY PT IS STILL COMPLAINING OF SHORTNESS OF BREATH AND BLEEDING WHEN COUGHING AND BLOWING NOSE. REFUSED NASAL SPRAY. ANOTHER HCEST X-RAY AND MORE LABS WERE ORDERED. CHEST X RAY SHOWED PNUEMONIA AND LEFT SIDED PLUERAL EFFUSION. PT IS IMPATIENT FOR HIS PET SCAN AND IS REMINDED OF THE PLAN IN PLACE TO GET HIM THERE. HE IS VERY VERY ANXIOUS AND HAS RECIEVED SEVERAL DOSES OF XANAX TODAY HIS BLOOD PRESSURE HAS IMPROVED. WILL CONTINUE TO MONITOR.
[2022-02-01 05:43] LABS: Albumin, Blood 2.5 g/dL (3.4-5.0); Anion Gap 2 mmol/L (6-16); Blood Urea Nitrogen 14 mg/dL (8-24); Bun/Creatinine Ratio 18.9 (12.0-20.0); CO2, Blood 38 mmol/L (21-32); Calcium, Blood 8.7 mg/dL (8.5-10.1); Chloride, Blood 105 mmol/L (98-108); Creatinine, Blood 0.74 mg/dL (0.60-1.20); Glomerular Filtration Rate 94 (60-); Glucose, Blood 123 mg/dL (70-99); Phosphorus, Blood 3.9 mg/dL (2.5-4.9); Potassium, Blood 4.4 mmol/L (3.5-5.5); Sodium, Blood 145 mmol/L (136-145)
--- NOTE | 2022-02-01 06:17 | NUR ---
SHIFT SUMMARY PATIENT ALERT AND ORIENTED X3. MEDICATED PER EMAR FOR ANXIETY. PATIENT KEEPS REPORTING THAT HE CAN'T BREATHE, SATS ARE IN THE 90'S ON 2 LITERS O2. NO ACUTE ISSUES NOTED OVERNIGHT. PATIENT IS VERY ANXIOUS THIS MORNING. CALL LIGHT WITHIN REACH. REPORT GIVEN TO ONCOMING RN.
--- NOTE | 2022-02-01 11:32 | NUR ---
pt complains of more pain last night he is anxious about plans. Review of medications with nursing. suggest night time increase of neurontin. will review case with hospital ethicist. pt still want treatment.
--- NOTE | 2022-02-01 18:39 | NUR ---
SHIFT SUMMARY NO ACUTE CHANGES. WILL CONTINUE TO MONITOR. PT STILL WAITING FOR PLACEMENT
--- NOTE | 2022-02-02 04:55 | NUR ---
SHIFT SUMMARY: PATIENT A&0X3, ANXIOUS. IRREGULAR HR. COARSE LUNGS, DIMINISHED BASES. STARTED ON 2L, HAD TO INCREASE TO 3L DUE TO ANXIETY CAUSES TACHYPNEA, SOB, AND WHEEZING. RT PROVIDED TREATMENT. ANXIRTY MEDICATION AND NASAL SPRAY ADMINSITERED. PATIENT COMPLAING OF HEADACHE REFUSED TYLENOL. PATIENT CALLS OUT "HELP ME" FROM ROOM, VERY PARTICUALR. HE WANTS HELP TO BREATHE BETTER ALL POSSIBLE INTERVENTIONS APPLIED INCLUDING REPSOITIONS AND BREATHIGN EXERCISES. PATIENT CONTINUED TO REQUEST MEDICATION TO MAKE HIS WORK OF BREATHING DECREASE. DISCCUSED DIFFICULT BALANCE WITH HIS BP AND CURRENT MEDICATIONS BEING REQUSTED (PAIN, ANITANXIETY MEDICATION). WE DID DISCUSS COMFRT CARE OPTION WELL AND WHAT THAT WOULD LOOK LIKE. PATIENT STATES HIS WAULITY OF LIFE IS HORRIBLE AND HE SRUGGLED TO BREATH EVERY DAY, BUT HE IS NOT READY TO . SUPRAPUBIC CATH INSERTION SITE CRUSTY, CLEANSED AND SPLIT GAUZE APPLIED. YELLOW URINE. POWER GLIDE PATENT WITH GOOD BLOOD RETURN.
[2022-02-02 05:28] LABS: Hematocrit 31.1 % (37.0-53.0); Hemoglobin 8.8 g/dL (13.5-17.5); Mean Corpuscular HGB 29.1 pg (26.0-34.0); Mean Corpuscular HGB Conc 28.3 g/dL (31.5-36.5); Mean Corpuscular Volume 103 fL (80-100); Mean Platelet Volume 11.5 fL (9.1-12.4); Platelet Count 199 K/mm3 (150-400); RDW Coefficient Variation 14.4 % (11.7-14.2); RDW Standard Deviation 53.7 fL (35.1-46.3); Red Blood Cell Count 3.02 M/mm3 (4.30-5.90)
[2022-02-02 05:33] LABS: White Blood Cell Count 54.87 K/mm3 (4.00-11.30)
[2022-02-02 05:48] LABS: Albumin, Blood 2.6 g/dL (3.4-5.0); Anion Gap 3 mmol/L (6-16); Blood Urea Nitrogen 16 mg/dL (8-24); Bun/Creatinine Ratio 21.7 (12.0-20.0); CO2, Blood 36 mmol/L (21-32); Calcium, Blood 8.8 mg/dL (8.5-10.1); Chloride, Blood 105 mmol/L (98-108); Creatinine, Blood 0.74 mg/dL (0.60-1.20); Glomerular Filtration Rate 94 (60-); Glucose, Blood 141 mg/dL (70-99); Phosphorus, Blood 3.8 mg/dL (2.5-4.9); Potassium, Blood 4.5 mmol/L (3.5-5.5); Sodium, Blood 144 mmol/L (136-145)
--- NOTE | 2022-02-02 18:33 | NUR ---
SHIFT SUMMARY PT AxOx4. PT REPORTED REGULAR RUSHES OF ANXIETY THIS SHIFT. MED CHANGES MADE BY PHYSICIAN WITH REPORTED RELIEF BY PATIENT- PT STATES HIS BREATHING FEELS BETTER AFTER MED CHANGES. PT BREATHING WITHOUT DIFFICULTY ON 2L O2. PT HAS DARK BURGUNDY URINE DRAINING FROM SUPRAPUBIC CATHETER WITH SEDIMENT AND CLOTS. PT ALSO REPORTS BURNING PAIN IN BLADDER. NOTIFIED. PT DECLINED GETTING UP INTO CHAIR THIS SHIFT AND DECLINED SOME OF HIS MEALS. PT ACTS VERY DEPRESSED AND FEARFUL OF HIS PROGNOSIS. VITALS REVIWED. PT CURRENTLY SITTING UP IN BED WATCHING TV WITH CALL LIGHT IN REACH. PT DENIES ANY NEEDS AT THIS TIME.
--- NOTE | 2022-02-03 04:36 | NUR ---
SHIFT SUMMARY: AT SHIFT CHANGE NOTED URINE IN CATH BAG MUCH DARKER THAN PRIOR NOC SHIFT. PER OFFGOING RN MD HAD BEEN NOTFIFED OF BURGUNDY COLORED URINE WITH BLOOD CLOTS. PATIENT ENDROSES DISCOMFORT TO BLADDER. CATH CARE COMPLETED AND NEW SPLIT GAUZE APPLIED. ONGOING ANXIETY DESPITE INCREASED XANAX DOSAGE AND FREQUENCY. ROXINAL GIVEN FOR AIR HUNGER X1. PATIENT HAS POOR INSIGHT TO HIS SITUATION AND FREQUENTLY WORKS HIMSELF UP OVER THE SENSATION OF NOT BEING ABLE TO BREATH. AFTER ALL INTERVENTIONS APPLIED, COACHING, AND THERAPEUTIC COMMUNICATION HE IS ABLE TO CALM DOWN ENOUGH TO FALL ASLEEP. PATIENT SLEEP INTERVALS ARE SHORT APPROX 2-3HOURS BEFORE WAKING AGAIN AND CALLING OUT FOR HELP. PATIENT STATES "I AM EXHAUSTED, AND DON'T WANT TO DO THIS EVERY NIGHT" WHEN QUESTIONED PATIENT EXPLAINS "I'M JUST GETTING WORSE, EACH DAY I SIT HERE AND NOTHING CHANGED, I DON'T GET ANY BETTER, HOW COME?" ANSWERED ALL QUESTIONS AND CONCERNS TO THE BEST OF ABILITY AND ENCOURAGED PATIENT TO SPEAK WITH MD REGARDING HIS PROGNOSIS AND PLAN OF CARE.
--- NOTE | 2022-02-03 17:06 | NUR ---
PT IS A/OX3, PLEASANT AND COOPERATIVE. THE PT WAS REPOSITIONED T/O THE DAY TODAY. THE PT DECLINED PHYSICAL THERAPY TODAY. PT IS HIGHLY ANXIOUS. PT WAS MEDICATED FOR ANXIETY T/O THE DAY. THE PT WAS GIVEN MORPHINE SL FOR AIRHUNGER PRN, THE PT REPORTED THAT IT HELPED WITH HIS BREATHING SOMEWHAT. DR. GALARZA CONSULTED ON THE PATIENT THIS AFTERNOON. PT WAS GIVEN MIDODRINE FOR SBP <100. CALL LIGHT WITHIN REACH, WILL CONTINUE TO MONITOR AND ASSESS FOR CHANGES
[2022-02-04 00:12] LABS: PO2 Arterial 107 mmHg (80-100)
[2022-02-04 00:13] LABS: PCO2 Arterial > 105 mmHg (35-45)
--- NOTE | 2022-02-04 02:16 | NUR ---
1900 DURING BEDSIDE HANDOFF PATIENT IN RESPRIATORY DISTRESS SAT LOW 70S ON HIS USUAL 3L NC, DIAPHORETIC, RR 38, ACCESORY MUSCLE USE, RETRACTIONS, EXP WHEEZE T/O. DIMINISHED BASES AND CRACKELS. 02 INCREASED TO 5L SAT AT 88%. RT AT BEDSIDE PROVIDING TREATMENT. PATIENT IS VERY FATIGUED. MD CONTACTED AND ARRIVED AT THE BEDSIDE. ORDERS TO PLACE ON CPAP. PATIENT HESITANT HE HAS BASELINE ANXIETY AND HAS PROFOUSLY REFUSED CPAP/BIPAP IN THE PAST. MD EDUCATED PATIENT AND ULTIMATLEY HE AGREED TO CPAP. 2104 PATIENT REQUESTED THE MEDIA CONSULTANT REMOVE CPAP AND REQUSTED TO BE PLACED ON COMFORT CARE. CUT OUT AND MARKING MACHINE OPERATOR NOTIFIED . AT BEDSIDE EXPLAINING COMFORT CARE TO PATIENT. PATIENT STATES HE WANTS TO DISCUSS WITH HIS FAMILY FIRST. PLAN IS TO USE CPAP TOELRATED THROUGH THE NIGHT. SCHEDULED MEDICATIONS GIVEN. 2119 PATIENT WITH INCREASED WORK OF BREATHING AND DYSPNEA, REQUSTED ROXINAL, TREATED PER EMAR. SAT IN ROOM SPEAKING WITH PATIENT TRYING TO PROVIDE COMFORT AND EASE ANXIETY, WORK OF BREATHING CONTINUES TO INCREASE AND SAT DECREASING HIGH 80S ON 5L, REFUSING CPAP. EDUCATION PROVIDED AND PATIENT REQUESTED TO CALL HIS BROTHER. PHONE CALL TO BROTHER CHERI MADE. PATIENT SPOKE TO HIM BREIFLY BUT WAS HAVING DIFFCULTY COMPLETING SENTENCES. I SPOKE TO BROTHER EXPLAINED PRIOR EVENTS AND CURRENT STATUS, ALL QUESTIONS AND CONCERNS ADDRESSED. CHERI AND LISE SPOKE AGAIN PATIENT AGREED TO REAPPLY CPAP APPROX 2215. 2300 ROUNDED ON PATIENT EYES CLOSED APPEARS TO BE SLEEPING BIOX READING 95%. 2350 ROUNDED ON PATIENT EYES CLOSED, BIOX READING 94%. 0000 MEDIA CONSULTANT SUMMONED ME FROM ANOTHER ROOM PATIENT SAT LOW 70S WITH MASK ON FACE. UPON ENTERING ROOM BIOX READING 72%, RR 40, PATIENT DIAPHORETIC, WITH ORAL CYANOSIS, SHALLOW LABORED BBREATHING. ATTEMPT TO WAKE PATIENT INCLUDING STERNAL RUB UNSUCCESSFUL. CENTRIFUGAL WAX MOLDER CALLED. REMOVED MASK AND APPLIED 5L NC SAT RETURNED > 90%. PATIENT REMAINS UNREPONSIVE. VITAL SIGNS AND CBG WITHIN NORMAL LIMITS. ABG WITH ELEVATED CO2. CPAP SETTINGS ADJUSTED BY RT SAT REMAIN > 90%. NOTFIFED. REPEAT ABG AT 0230. 0035 PATIENT NOW HYPOTENSIVE 79/54. MD NOTIFIED. VERBAL ORDERS TRANSFER TO PCU RECEIVED. PATIENT REMAINS UNRESPONSIVE. 0100 ATTEMPTED TO CALL PATIENT'S SON WHO HAS GUARDIANSHIP LEFT BREIF MESSAGE REQUESTING A CALL BACK. CALLED BROTHER CHERI AND PROVIDED UPDATE HE STATED PATIENTS SON IS TO MAKE DECISIONS. CHERI MAY ATTEMPT TO DRIVE FROM [employer]. REPORTED CALLED TO SUSAN MENDOZA.
[2022-02-04 02:29] LABS: PCO2 Arterial 66.6 mmHg (35-45); PO2 Arterial 62.1 mmHg (80-100); pH Blood Arterial 7.35 (7.35-7.45)
--- NOTE | 2022-02-04 06:51 | NUR ---
SUMMARY. PT ARRIVED TO ICU FROM MEDICAL FLOOR AT APPROXIMATELY 0150. ON BIPAP, 16/8, 6L/MIN. PT INITIALLY VERY DROWSY BUT AROUSABLE, SHIFT CONTINUED, PT BECAME MORE ALERT AND ORIENTED. PG IN CHANTAL, CURRENTLY RUNNING NS TKO AND ZOSYN. SUPRAPUBIC CATHETER IN PLACE, 225 MLS URINE OUT THIS SHIFT. PT TRIALED OFF OF BIPAP WITH NC ON 6 L/MIN, TOLERATED WELL BUT DESATURATED QUICKLY WHEN TALKING OR COUGHING ,BIPAP BACK ON ATT. VS OTHERWISE STABLE THROUGHOUT SHIFT, SEE SHIFT ASSESSMENT FOR FURTHER DETAILS. PT BROTHER AND AT BEDSIDE CURRENTLY, INTERESTED IN SPEAKING TO PHYSICIAN ABOUT PROGNOSIS AND PLAN OF CARE. PT'S SON IS HIS LEGAL GUARDIAN, MESSAGE LEFT WITH HIM NOTIFYING HIM OF CHANGE IN STATUS AND TRANSFER TO ICU.
--- NOTE | 2022-02-04 07:35 | NUR ---
ASSUMED CARE: REPORT RECEIVED FROM JOSEMANUEL Connors RN. ASSUMED CARE OF THIS PT AT APPROX 0700. ON ASSESSMENT, THE PT IS AWAKE, REQUESTING SIPS OF WATER. HE IS ORIENTED TO HIMSELF, FOLLOWING DIRECTIONS & FAMILY AT BEDSIDE. LS DIM T/O, RUB NOTED. PT ON BIPAP W/ SETTINGS: 16/8 & 6L O2 BLEED-IN W/ O2 SATS > 92%. PT TOLERATING SMALL 1-2 MINUTE BREAKS FROM BIPAP FOR CARE MEASURES/ MEDS/ SIPS OF WATER. AFTER APPROX 2 MINS HE BECOMES INCREASINGLY DYSPNEIC & ANXIOUS. MONITOR SHOWS AFIB W/ HR 80-110s, BP STABLE. PT TOLERATING SIPS/MEDS BUT IS OTHERWISE NPO R/T BIPAP DEPENDENCE. CHRONIC SUPRAPUBIC PICHARDO PATENT/ DRAINING YELLOW URINE. SKIN CONDITION OVERALL POOR, FRAGILE. COCCYX W/ PRESSURE ULCER & EXCORIATION NOTED TO BUTTOCKS, SEE PHOTOS IN CHART. Q2H REPOSITIONING TO MAINTAIN SKIN INTEGRITY. WILL CONTINUE TO MONITOR & UPDATE NEEDED.
[2022-02-04 08:19] LABS: Hematocrit 30.5 % (37.0-53.0); Hemoglobin 8.3 g/dL (13.5-17.5); Mean Corpuscular HGB 28.2 pg (26.0-34.0); Mean Corpuscular HGB Conc 27.2 g/dL (31.5-36.5); Mean Corpuscular Volume 104 fL (80-100); Mean Platelet Volume 11.6 fL (9.1-12.4); Platelet Count 198 K/mm3 (150-400); RDW Coefficient Variation 14.2 % (11.7-14.2); RDW Standard Deviation 52.8 fL (35.1-46.3); Red Blood Cell Count 2.94 M/mm3 (4.30-5.90)
[2022-02-04 08:25] LABS: White Blood Cell Count 56.49 K/mm3 (4.00-11.30)
--- NOTE | 2022-02-04 08:30 | NUR ---
DR CABAN: PROVIDER AT BEDSIDE TO EVAL PT THIS AM. FAMILY IS AT BEDSIDE DURING THIS TIME & HAS BEEN PROVIDED W/ AN UPDATE BY THE PROVIDER. POSSIBILITY OF COMFORT MEASURES HAS BEEN DISCUSSED, FAMILY STS THAT THE PT's SON IS HIS LEGAL GAURDIAN & NO DECISIONS WILL BE MADE WITHOUT HIS APPROVAL. THE PLAN IS FOR A THORACENTESIS TODAY TO PROMOTE PT COMFORT R/T PLEURAL EFFUSIONS, ELIQUIS HAS BEEN HELD FOR THE PAST 2 DAYS. THE PROVIDER HAS VERIFIED THAT PALLIATIVE CARE IS INVOLVED WITH THIS CASE, THIS RN WILL UPDATE PALLIATIVE CARE RN ABOUT PT's CHANGE IN CONDITION OVER NIGHT & SUBSEQUENT TX TO ICU. NO OTHER CHANGES AT THIS TIME.
[2022-02-04 08:36] LABS: Albumin, Blood 2.7 g/dL (3.4-5.0); Albumin/Globulin Ratio 0.8 (0.8-1.8); Bilirubin, Total 0.4 mg/dL (0.1-1.0); Bun/Creatinine Ratio 23.5 (12.0-20.0); Calcium, Blood 8.9 mg/dL (8.5-10.1); Creatinine, Blood 0.89 mg/dL (0.60-1.20); Globulin, Blood 3.6 g/dL (2.2-4.0); Potassium, Blood 4.7 mmol/L (3.5-5.5); Total Protein, Blood 6.3 g/dL (6.4-8.2)
--- NOTE | 2022-02-04 10:25 | NUR ---
DR CARDENAS: PROVIDER AT BEDSIDE TO EVAL PT THIS AM. HE HAS SPOKEN W/ THE PT's BROTHER & [id number] AT BEDSIDE & PROVIDED THEM W/ AN UPDATE.
--- NOTE | 2022-02-04 11:03 | NUR ---
UPDATE: THE PT HAS INCREASED C/O PAIN TO HIS LLE. THIS RN NOTES THAT THE LLE IS SLIGHTLY MORE SWOLLEN THAN THE RLE & IS WARM TO TOUCH. THERE IS ALSO SOME AREAS OF REDNESS ON THE LEE & THIGH THAT ARE UNCHANGED SINCE AM ASSESSMENT. THIS RN HAS NOTIFIED DR CARDENAS WHO WOULD LIKE DR CABAN TO BE UPDATED WELL. ORDERS PLACED FOR VENOUS & ARTERIAL US OF THE LLE. THE PT IS ALSO BECOMING INCREASINGLY ANXIOUS R/T BIPAP USE, AM DOSE OF XANAX NOT GIVEN R/T DOSING CHANGE. ONE TIME DOSE OKAY'd PER DR CABAN & SCHEDULED DOSING TO BEGIN THIS AFTERNOON.
--- NOTE | 2022-02-04 11:18 | NUR ---
ADULT PROTECTIVE SERVICES: CALL FROM MICHAEL, APS COMMUNICATIONS PROJECT MANAGER, ASKING QUESTIONS ABOUT GUARDIANSHIP PAPERWORK FOR THIS PT. PER PAPERWORK IN CHART, THE PT's LEGAL GUARDIAN HAS BEEN ESTABLISHED HIS SON, JOSEMANUEL SEBASTIAN. MICHAEL IS CALLING TO SPEAK W/ THE PT, WHO IS CURRENTLY BIPAP DEPENDENT & UNABLE TO TAKE PHONE CALLS. SANTOS Melvin, VINYL INSTALLER, HAS SPOKEN W/ THE PT WHO IS NOW ORIENTED TO ALL, TO VERIFY THAT MICHAEL IS OKAY TO SPEAK W/ THE PT's SON, JOSEMANUEL. THE PT STS THAT IT IS OKAY FOR MICHAEL TO SPEAK W/ EITHER JOSEMANUEL OR THE PT's BROTHER, CHERI, IF NECESSARY.
--- NOTE | 2022-02-04 14:59 | NUR ---
UPDATE: THE PT IS REFUSING TO WEAR HIS CPAP & IS AGAIN INCREASINGLY CONFUSED. CPAP REMOVED & PT PLACED ON 4L NC AT APPROX 1440. HE CONTINUES TO PULL AT NASAL CANNULA, STATING "PLEASE HELP ME, I NEED THE MASK OFF." WHEN REMINDED THAT THE CPAP MASK HAS BEEN REMOVED ALREADY, HE CONTINUES TO STATE THAT HE NEEDS HELP & TO HAVE THE MASK REMOVED. DESATS TO 80% NOTED WHEN NASAL CANNULA PULLED OFF BY PT. HE IS ALSO MAKING STATEMENTS THAT HE IS "DONE" & IS "GOING TO ." HE IS NO LONGER ORIENTED TO DATE & IS UNABLE TO FOLLOW DIRECTIONS, HE CONTINUES TO REPEAT THE SAME NONSENSICAL PHRASES. FREDDY Bonilla, PALLIATIVE CARE RN, HAS BEEN IN CONTACT W/ DR CABAN & THE PT's SON JOSEMANUEL REGARDING CONTINUED PLAN OF CARE MOVING FORWARD.
--- NOTE | 2022-02-04 15:39 | NUR ---
Spiritual care visit conducted. Pt is lying in bed and alert. Pt immediately says, "Please, I beg you please, I want to , let me go." Pt then tells me he wants to take the "air mask" off and that he is so tired. He explains that he has fears, about and "meeting his Creator." We talk about ways to find peace and how to have a sense of forgiveness and collette about his life and his meeting with the Creator. I then provide prayer and theological insights. After speaking with his RN Oriana, I remove O2 support, at his request, but stipulate that if his numbers dip into the 80s I would put it back on. Pt agrees, I remove the support, he again emphasizes his desire to stop all medical treatment and just rest. He desats in minutes and I replace the air support. Pt displays evidence of greater peace about and spiritual distress, at least temporarily, is suspended. I will continue to remain available to patient and family.
--- NOTE | 2022-02-04 17:13 | NUR ---
Spoke to pt's son Mckay about pt's current condition in ICU. Today, the pt has struggled with pain and SOB. He has been pulling at his oxygen tubing, making statements to the bedside RN such as, "I can't do this anymore". Mckay is thinking seriously about comfort care for pt, but requests I have a discussion and explain the current issues with pt prior to any final decisions regarding comfort care. I did place call to pt's brother Kanu, and he continues to bargain regarding pt's overal condition. I gently explained to him that pt has been attempting to pull his oxygen tubing off, and if he ends up requiring bipap again and pulls it off, the bedside RN would have to restrain him to keep him from it if he is not on comfort care. He states he does understand this, yet also states "If we can just get the fluid drained off his lungs again..." but then verbalized understanding that pt does get thoracentesis, then fills up again. He does continue to fixate on the "mass pushing against pt's bronchus", stating "what if it's not cancer"? Again, I reminded him that pt's breathing is terrible cancer or not. Eventually, we came to an impass. For tonight, pt's brother and son agree to try to help him through the night, and if he refuses oxygen tonight, will use soft restraints to keep 02 sats >88% and rediscuss in the morning.
--- NOTE | 2022-02-04 17:31 | NUR ---
SHIFT SUMMARY: THE PT's MENTATION HAS AGAIN BEGUN TO CLEAR SOME THIS EVENING. HE IS NOW ORIENTED TO STAFF, PLACE & DATE. HE IS APOLOGETIC FOR HIS "BEHAVIOR" EARLIER THIS AFTERNOON. HE DOES REMAIN CONFUSED TO WHY HE WAS TRANSFERRED TO ICU LAST NIGHT & HAS NO RECOLLECTION OF YESTERDAY OR LAST NIGHT's EVENTS THAT LEAD TO HIS TRANSFER. PT ON 4L NC W/ O2 SATS > 92%. OCCASIONAL PRODUCTIVE COUGH W/ SMALL AMNT THICK ROSALES SPUTUM SUCTIONED. THE PT STS WANTING THE "FLUID OFF OF HIS LUNG" SOON POSSIBLE TOMORROW. MONITOR SHOWS AFIB W/ BBB, HR 80-100s. HYPOTENSION W/ SBP 80-90s AT TIMES, MAP MAINTAINING > 65. PT TOLERATING SIPS OF WATER WELL, DINNER TRAY WILL BE OFFERED THIS EVENING. CHRONIC SUPRAPUBIC PICHARDO PATENT/ DRAINING SMALL AMNTS OF URINE, PO FLUID INTAKE ENCOURAGED. SKIN CONDITION OVERALL FRAGILE, CREAM APPLIED TO PT's BUTTOCKS, AT HIS REQUEST, & AREA LEFT HARVEY. Q2H REPOSITIONING TO MAINTAIN SKIN INTEGRITY. FREDDY Bonilla, PALLIATIVE CARE RN, HAS BEEN IN CONTACT W/ THE PT's SON & BROTHER REGARDING THE POSSIBILITY OF TRANSITIONING THIS PT's POC TOWARDS COMFORT MEASURES. FAMILY WOULD LIKE SOME TIME TO DISCUSS THIS AMONGST THEMSELVES PRIOR TO MAKING A DECISION. FREDDY PLANS TO FOLLOW-UP WITH THEM AT A LATER TIME - SEE PALLIATIVE CARE RN NOTE FOR MORE DETAILS REGARDING THIS. WILL CONTINUE TO MONITOR & REPORT OFF TO ONCOMING RN.
--- NOTE | 2022-02-04 19:05 | NUR ---
ASSUMED CARE. REPORT RECIEVED FROM TRANG RN. PT RESTING IN BED, ON O2 VIA NC AT 4 L/MIN. PG IN CHANTAL, NS TKO AT 20 ML/HR. SUPRAPUBIC CATHETER DRAINING TO GRAVITY. VS STABLE ATT, WILL CONTINUE TO MONITOR.
[2022-02-05 03:40] LABS: Hematocrit 31.2 % (37.0-53.0); Hemoglobin 8.6 g/dL (13.5-17.5); Mean Corpuscular HGB 28.8 pg (26.0-34.0); Mean Corpuscular HGB Conc 27.6 g/dL (31.5-36.5); Mean Corpuscular Volume 104 fL (80-100); Mean Platelet Volume 11.4 fL (9.1-12.4); Platelet Count 200 K/mm3 (150-400); RDW Coefficient Variation 14.2 % (11.7-14.2); RDW Standard Deviation 53.5 fL (35.1-46.3); Red Blood Cell Count 2.99 M/mm3 (4.30-5.90)
[2022-02-05 03:44] LABS: White Blood Cell Count 57.75 K/mm3 (4.00-11.30)
[2022-02-05 04:00] LABS: Bun/Creatinine Ratio 23.8 (12.0-20.0); Calcium, Blood 9.1 mg/dL (8.5-10.1); Creatinine, Blood 1.05 mg/dL (0.60-1.20); Potassium, Blood 4.3 mmol/L (3.5-5.5)
--- NOTE | 2022-02-05 06:35 | NUR ---
SHIFT SUMMARY. PT CONTINUES IN BED, ON BIPAP CURRENTLY, 26/04 50% Fi02. PT INITIALLY ON NC AT 4 L/MIN, DURING SHIFT PT BEGAN TO DESAT, BIPAP PUT ON PT AND HE CONTINUED TO DESAT INTO THE HIGH 70s. DR. CARDENAS CONTACTED, RT INSTRUCTED TO CHANGE BIPAP MACHINE AND INCREASE 02 AND PRESSURE SETTINGS. PT'S SON CONTACTED TO NOTIFY HIM OF CHANGE IN PT CONDITION WELL. PT BECAME DISORIENTED AND SOFT WRIST RESTRAINTS APPLIED TO PROTECT BIPAP MASK. SATS SLOWLY IMPROVED, CURRENTLY AT 97%. PT CONTINUES TO TRY TO TAKE MASK OFF WHEN HANDS ARE UNRESTRAINED. NO OTHER ACUTE EVENTS THIS SHIFT, SEE ASSESSMENT FOR FURTHER DETAILS. WILL CONTINUE TO MONITOR AND REPORT OFF TO DAYSHIFT RN.
--- NOTE | 2022-02-05 08:52 | NUR ---
ASSUMED CARE REPORT FROM SHADY DAVIS AT 0700. PT RESTING IN BED c BIPAP IN PLACE, 20/40%. CHANGED TO NC AT 4L. PLACED IN MOUTH D/T MOUTH BREATHING. PT A&OX 2. REQUESTING NOT TO WEAR BIPAP AGAIN. RESTRAINTS REMOVED. LUNGS DIM THROUGHOUT. SHALLOW RESP. PT P/W/D. SPEAKING IN SHORT SENTANCES. ABLE TO MAKE NEEDS KNOWN. AFIB ON MONITOR, RATE 100'S, BP STABLE. ABD ROUND, SOFT, NON TENDER. BT X 4. SUPRAPUBIC CATH IN PLACE, DRAINING TO GRAVITY. SEE SKIN ASSESSMENT. PALLIATIVE CONSULTED D/T PT REQUESTING TO NOT WEAR BIPAP AGAIN. PLAN FOR THORACENTESIS THIS SHIFT. WILL CONTINUE TO MONITOR.
[2022-02-05 11:41] LABS: Automated BF RBC Count 1.161 M/mm3 (0-0); Body Fluid WBC Count 7350 /mm3 (0-999); RBC Count, Body Fluid 1161000 /mm3 (0-0)
[2022-02-05 13:10] LABS: Appearance, Body Fluid Bloody (Clear); Color, Body Fluid Red (None-Yellow); Total Cell Count, Body Fluid 100
[2022-02-05 14:36] LABS: Base Excess Venous 10.5 mmol/L; Bicarbonate Venous 32.6 mmol/L (24.0-30.0); PCO2 Venous 61.7 mmHg (38-42); PO2 Venous 38.8 mmHg (38-42); pH Blood Venous 7.37 (7.34-7.37)
[2022-02-05 14:49] LABS: Source, Urine Suprapubic Cath
[2022-02-05 15:01] LABS: Appearance, Urine Clear (Clear); Bilirubin, Urine Neg (Neg); Blood, Urine 1+ (Neg); Color, Urine Yellow (P-Yellow); Glucose Qualitative, Urine Neg (Neg); Ketones, Urine 3+ (Neg); Leukocyte Esterase, Urine 3+ (Neg); Nitrite, Urine Neg (Neg); Protein, Urine 2+ (Neg); Specific Gravity, Urine 1.025 (1.003-1.022); Urobilinogen, Urine NORM (Normal)
[2022-02-05 15:24] LABS: Bacteria Many /hpf; Calcium Oxalate Crystals Few /hpf; Squamous Epithelial Cells Few /hpf (Few); White Blood Cells, Urine 50-100 /hpf (0-5); Yeast/Fungi Urine Rare /hpf
--- NOTE | 2022-02-05 15:32 | NUR ---
Spiritual care visit conducted. Pt is lying in bed and saying, "help me." Pt is very restless and agitated. Palliative Care RN Chaya is in pt's rm and on facetime with pt's brother, Kanu, trying to comunicate the gravity of pt's condition. I encourage pt from just outside the rm with door wide open and also provide staff support. Pt's condition is difficult to manage with his current code status and the current treatment model appears contrary to what pt is trying to communicate and so it is a challenging because pt continues to show signs of being frustrated and uncomfortable. I will continue to remain available.
--- NOTE | 2022-02-05 17:31 | NUR ---
SHIFT SUMMARY PT REMAINED ON 4L VIA NC MOST OF SHIFT. IN AM, PT STATED THAT HE DID NOT WANT "HANDCUFFS" ON OR WEAR BIPAP MASK. EXPLAINED TO PT THAT THIS MAY BE REQUIRED TO SAVE HIS LIFE, HE REPLIED THAT HE DID NOT CARE AND HE DIDN'T WANT THIS INTERVENTION. AFTER SPEAKING mine HAYES, PT REPETITIVELY STATING "I DONT KNOW WHAT I DID WRONG. AM I GOING TO LIVE?" PT VERBALIZED WANTING TREATMENT AND AGREEABLE TO WEAR MASK. PT TOLERATED MASK FOR < 5 MINS BEFORE PULLING IT OFF. PLACED BACK ON 4L VIA NC. O2 SATS >93%. LUNGS DIM. AFIB ON MONITOR, RATE 90'S. BP STABLE. THORACENTESIS COMPLETED, 1.5L OFF. NPO AFTER SPEECH EVAL. SUPRAPUBIC CATH DRAINING TO GRAVITY, SAMPLE SENT TO LAB. POWERGLIDE TO LUE, DRESSING CHANGED. BEDBATH COMPLETE. UP TO CHAIR VIA LIFT FOR SEVERAL HOURS THIS SHIFT. WILL CONTINUE TO MONITOR UNTIL REPORT TO ONCOMING NURSE.
--- NOTE | 2022-02-05 17:44 | NUR ---
Care Conference: Spoke to pt's brother Kanu several times today with updates on pt care. Also assisted pt with video call with brother, which did appear to lighten pt's spirits. He began the day with lethargy, SOB and agitation, stating he was not going to ever put the bipap mask on again, ever. I understood this, as he ariadne frustrated, but he had been stating, "I can't do this anymore, I'm tired". for the past 2 days. We did discuss comfort care as an option once again, as pt is dealing with many issues, including increased PCO2 r/t pneumonia, cystitis. LCC and underlying hx lung cancer. The pt's son Mckay v/u regarding the seriousness of the illnesses, and has continued wondering if pt was to ever leave the hospital. See Care Managment notes re: inpatient PE vs outpatient PE. The last update today, pt states he want to do "everything", including cancer treatments. The ethics committee will also be asessing this case.
--- NOTE | 2022-02-05 19:30 | NUR ---
PT REPORT RECEIVED, SAFETY CHECK COMPLETED, ASSUMED PT CARE. PT LYING SUPING IN BED AND IS ALERT AND ORIENTED BUT ALSO IS PERSEVERATING ABOUT WANTING WATER AND HAS SIGNIFICANT SHORT TERM MEMORY LOSS.
[2022-02-06 04:01] LABS: BASOPHILS ABSOLUTE AUTO 0.09 K/mm3 (0.00-0.23); BASOPHILS PERCENT AUTO 0 % (0-2); EOSINOPHILS ABSOLUTE AUTO 0.26 K/mm3 (0.00-0.68); EOSINOPHILS PERCENT AUTO 1 % (0-6); Hematocrit 25.8 % (37.0-53.0); Hemoglobin 7.5 g/dL (13.5-17.5); IMMATURE GRAN ABSOLUTE AUTO 0.09 K/mm3 (0.00-0.10); IMMATURE GRAN PERCENT AUTO 0 % (0-1); LYMPHOCYTES ABSOLUTE AUTO 34.41 K/mm3 (0.84-5.20); LYMPHOCYTES PERCENT AUTO 83 % (21-46); MONOCYTES ABSOLUTE AUTO 1.01 K/mm3 (0.16-1.47); MONOCYTES PERCENT AUTO 2 % (4-13); Mean Corpuscular HGB 29.2 pg (26.0-34.0); Mean Corpuscular HGB Conc 29.1 g/dL (31.5-36.5); Mean Corpuscular Volume 100 fL (80-100); NEUTROPHILS ABSOLUTE AUTO 5.69 K/mm3 (1.96-9.15); NEUTROPHILS PERCENT AUTO 14 % (41-73); Platelet Count 156 K/mm3 (150-400); RDW Coefficient Variation 14.3 % (11.7-14.2); RDW Standard Deviation 51.2 fL (35.1-46.3); Red Blood Cell Count 2.57 M/mm3 (4.30-5.90); White Blood Cell Count 41.55 K/mm3 (4.00-11.30)
[2022-02-06 04:10] LABS: Base Excess Venous 10.9 mmol/L; Bicarbonate Venous 33.4 mmol/L (24.0-30.0); PCO2 Venous 56.9 mmHg (38-42); pH Blood Venous 7.41 (7.34-7.37)
[2022-02-06 04:16] LABS: Bun/Creatinine Ratio 23.3 (12.0-20.0); Calcium, Blood 8.6 mg/dL (8.5-10.1); Creatinine, Blood 0.82 mg/dL (0.60-1.20); Potassium, Blood 3.7 mmol/L (3.5-5.5)
--- NOTE | 2022-02-06 05:26 | NUR ---
SHIFT SUMMERY: PT ALERT AND ANXIOUS THROUGH OUT THE WHOLE NIGHT. PT IS ORIENTED BUT IS EXTREAMLY FIXATED ON WANTING TO DRINK WATER AND NEEDS VERY FREQUENT RE-ORIENTATION. PT'S VSS AND MOVES ALL EXTREMETIES BUT LEGS ARE VERY WEAK.
--- NOTE | 2022-02-06 07:30 | NUR ---
DR CHESTER IN SEEING PATIENT NOW, PATIENTS SATS DROPPED TO 85% WITHA GOOD PLETH, INCREASED TO 5L O2 VIA NC AND REPOSITIONED IN NOWSE, SATS NOW AT 99%, TO HAVE A MBS TODAY, NPO, PATIENT ALERT AND DROWSY, FIXATED ON A PHONE FOR THE OTHER PATIENT? PATIENT UNABLE TO CLEALRY EXPLAIN. REPOSITIONED IN BED, [facility]
--- NOTE | 2022-02-06 10:36 | NUR ---
PATIENT TRANSFERED TO IMAGING FOR MBS
--- NOTE | 2022-02-06 15:49 | NUR ---
REPORT TO KEY MIRANDA, PATIENT TO BE MOVED TO PCU 18, PATIENT OOB IN CHAIR, LIFT USED TO TRANSFER PATIENT
--- NOTE | 2022-02-06 16:06 | NUR ---
Ethics consult order processed. Chart notes, medical history, prognostic indicators, and adbance care planning instrument revewied and discussed with palliative care nurse. The treatment approach should be aligned with the principals stipulated preferences as explicated and documented in his directive. Therefore, if the principal has been verified to be in a terminal state, and there is a good degree of clinical certainty that his recovery is highly improbable, then life sustaining procedures should be forgone, and a hospice election should be pursued. Assuming this is the case, it should be gently, but firmly explained to the brother, who is the actual medical power of journalist, that he is legally obligated to submit to the wishes of the principal. To exceed those standards would constitute overtreatment, battery, and not incidently, a circumvention of the principals dignity of choice and autonomy. All of this assumes that the principal has been formally deemed to be incapable of making his own choices. Thank you for this consult. Jeffrey Locke ThD, DEBI
--- NOTE | 2022-02-06 16:51 | NUR ---
PATIENT TRANSFERRED TO PCU 18, REPORT TO KEY MIRANDA RN, BELONGINGS WITH PATIENT
--- NOTE | 2022-02-06 17:12 | NUR ---
PCU ARRIVAL PT ARRIVES FROM ICU AT 1650. REPORT FROM MANJEET DAVIS. 5L VIA NC, LUNGS DIM THROUGHOUT. PT A&OX 2. ANXIOUS. FREQUENTLY YELLS OUT FOR HELP WHEN STAFF ARE AT BEDSIDE. AFIB ON MONITOR, RATE 90-100. BP STABLE. PT C/O GENERALIZED PAIN, 03/16. MEDICATED c ROXINAL 5 MG SL. SUPRAPUBIC CATH IN PLACE, CLOUDY YELLOW URINE OUT. POWERGLIDE TO RUE, DRESSING C/D/I. BREAKDOWN NOTED TO SACRUM, PHOTOS FROM TWO DAYS AGO IN CHART. MEPILEX APPLIED. SPEECH OK'D THIN LIQUID BY SPOON. WILL CONTINUE TO MONITOR UNTIL REPORT TO ONCOMING NURSE.
--- NOTE | 2022-02-07 04:14 | NUR ---
SHIFT SUMMARY: PT IS A/OX2-3. HE WAS A PCU TX @ AROUND 0030. 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 CURRENTLY ON 4L OF O2. TELE: AFIB/77. HE HAS A POWERGLIDE IN HIS CHANTAL INFUSING INTERMITTENT ABX. D/T IMMOBILITY HE IS TURNED FREQUENTLY. THE PT HAS PRN 5MG LIQUID ROXYCODONE. SUPRAPUBIC CATH IS PATENT. HE DOES HAVE TWO STAGE II P.U. WITH A MEPILEX DRESSING CDI. PT'S CALL LIGHT IS WITHIN REACH AND WE'LL CONTINUE TO MONITOR.
[2022-02-07 05:08] LABS: BASOPHILS ABSOLUTE AUTO 0.09 K/mm3 (0.00-0.23); BASOPHILS PERCENT AUTO 0 % (0-2); EOSINOPHILS ABSOLUTE AUTO 0.29 K/mm3 (0.00-0.68); EOSINOPHILS PERCENT AUTO 1 % (0-6); Hematocrit 26.2 % (37.0-53.0); Hemoglobin 7.6 g/dL (13.5-17.5); IMMATURE GRAN ABSOLUTE AUTO 0.08 K/mm3 (0.00-0.10); IMMATURE GRAN PERCENT AUTO 0 % (0-1); LYMPHOCYTES PERCENT AUTO 82 % (21-46); MONOCYTES ABSOLUTE AUTO 1.02 K/mm3 (0.16-1.47); MONOCYTES PERCENT AUTO 3 % (4-13); Mean Corpuscular HGB 28.8 pg (26.0-34.0); Mean Corpuscular Volume 99 fL (80-100); Mean Platelet Volume 11.1 fL (9.1-12.4); NEUTROPHILS ABSOLUTE AUTO 4.85 K/mm3 (1.96-9.15); NEUTROPHILS PERCENT AUTO 14 % (41-73); Platelet Count 152 K/mm3 (150-400); RDW Coefficient Variation 14.4 % (11.7-14.2); RDW Standard Deviation 51.8 fL (35.1-46.3); Red Blood Cell Count 2.64 M/mm3 (4.30-5.90); White Blood Cell Count 35.93 K/mm3 (4.00-11.30)
[2022-02-07 05:30] LABS: Albumin, Blood 2.3 g/dL (3.4-5.0); Albumin/Globulin Ratio 0.7 (0.8-1.8); Bilirubin, Total 0.5 mg/dL (0.1-1.0); Bun/Creatinine Ratio 15.2 (12.0-20.0); Calcium, Blood 8.5 mg/dL (8.5-10.1); Creatinine, Blood 0.79 mg/dL (0.60-1.20); Globulin, Blood 3.3 g/dL (2.2-4.0); Potassium, Blood 3.4 mmol/L (3.5-5.5); Total Protein, Blood 5.6 g/dL (6.4-8.2)
--- NOTE | 2022-02-07 17:38 | NUR ---
SHIFT SUMMARY PATIENT MEDICATED FOR LEG PAIN X2. PATIENT DENIES NAUSEA. PATIENT REPORTED SHORTNESS OF BREATH THIS AFTERNOON. REPOSITIONED. PATIENT ON 5L VIA N/C SATURATING ABOVE 95%. PATIENT REPORTED BEING ANXIOUS. MEDICATED WITH PRN X1. PATIENT REPORTS SHORTNESS OF BREATH RESOLVED AFTER. PALLIATIVE CARE CONSULTED THROUGHOUT DAY. PATIENT YELL OUT FOR HELP, EVEN IF SLEEPING OR STAFF AT BEDSIDE. 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 PATIENT HAS VERY POOR PO INTAKE. WAS ABLE TO GET PATIENT TO EAT SOME ICE CREAM. THIS AFTERNOON PATIENT SBP WAS 86. RECHECK, SBP WAS 104. PATIENT A&0 X2, VERY CONFUSED.
[2022-02-08 04:56] LABS: Hematocrit 28.2 % (37.0-53.0); Mean Corpuscular HGB 28.8 pg (26.0-34.0); Mean Corpuscular HGB Conc 28.4 g/dL (31.5-36.5); Mean Corpuscular Volume 101 fL (80-100); Platelet Count 167 K/mm3 (150-400); RDW Coefficient Variation 14.4 % (11.7-14.2); RDW Standard Deviation 53.3 fL (35.1-46.3); Red Blood Cell Count 2.78 M/mm3 (4.30-5.90)
[2022-02-08 05:34] LABS: Alanine Aminotransfer (ALT/SGP 13 U/L (12-78); Albumin, Blood 2.7 g/dL (3.4-5.0); Albumin/Globulin Ratio 0.8 (0.8-1.8); Alk Phos 118 U/L (50-136); Anion Gap 2 mmol/L (6-16); Aspartate Aminotrans (AST/SGOT 14 U/L (12-37); Bilirubin, Total 0.6 mg/dL (0.1-1.0); Blood Urea Nitrogen 12 mg/dL (8-24); Bun/Creatinine Ratio 14.1 (12.0-20.0); CO2, Blood 38 mmol/L (21-32); Calcium, Blood 9.1 mg/dL (8.5-10.1); Chloride, Blood 105 mmol/L (98-108); Creatinine, Blood 0.85 mg/dL (0.60-1.20); Globulin, Blood 3.3 g/dL (2.2-4.0); Glomerular Filtration Rate 90 (60-); Glucose, Blood 122 mg/dL (70-99); Potassium, Blood 3.5 mmol/L (3.5-5.5); Sodium, Blood 145 mmol/L (136-145); Vancomycin, Trough 16.5 ug/mL (5.0-10.0)
--- NOTE | 2022-02-08 05:38 | NUR ---
SHIFT SUMMARY: PT CONTINUES TO YELL OUT, BUT HE DID GET SOME REST THROUGOUT THE NOC SHIFT. WHEN HE YELLS OUT HE DOESN'T KNOW WHAT HE NEEDS. HE DID HAVE SOME C/O PAIN AND WAS MEDICATED VIA EMAR. D/T IMMOBILITY HE WAS REPOSITIONED TO MAINTAIN SKIN INTEGRITY. HE REMAINS ON 4-5L OF O2, POWERGLIDE HAS BEEN TKO BETWEEN ABX. BED IS IN LOWEST POSITION AND WE'LL CONTINUE TO MONITOR.
[2022-02-08 14:58] LABS: PCO2 Arterial 64.3 mmHg (35-45); PO2 Arterial 79.4 mmHg (80-100); pH Blood Arterial 7.37 (7.35-7.45)
--- NOTE | 2022-02-08 17:34 | NUR ---
SHIFT SUMMARY PATIENT MEDICATED FOR AIR HUNGER X2. PATIENT DENIES NAUSEA. PATIENT REPORTED SHORTNESS OF BREATH THIS AFTERNOON. PATIENT RESP 26. PATIENT MORE LETHARGIC, NOT ALERT. RT CALLED FOR BREATHING TREATMENT. DR. CABAN NOTIFIED. NEW ORDERS FOR ABG. RT CALLED TO INFORM THIS RN THAT THE CO2 WAS ELEVATED, BUT O2 SATURATION WAS 97. RT INSTRUCTED THIS RN TO TITRATE O2 DOWN. PATIENT MORE ALERT AT DINNERTIME, YELLING OUT. PATIENT CONTINUES TO BREATH HARD AT RESP 25. PATIENT HAS POOR PO INTAKE. DRESSING CHANGED ON SACRUM. BROTHER CALLED FOR UPDATE IN MORNING, PASSWORD PROVIDED. PATIENT CONTINUES TO TELL STAFF THAT HE IS DYING, HE HAS SAID HIS PRAYERS, AND HE WANTS TO STOP SUFFERING. PALLIATIVE CARE CONSULTED.
--- NOTE | 2022-02-09 06:33 | NUR ---
SHIFT SUMMARY: PT WAS A/OX3. HE CONTINUES TO YELL OUT "HELP" WHEN ASKED WHAT DO YOU NEED HE DOESN'T TYPICALLY HAVE AN ANSWER. WE DID FREQUENT MONITORING TO MAKE SURE HE WAS SAFELY IN BED, D/T HIM OCCASSIONALLY HANGING HIS LEGS OVER THE EDGE OF THE BED. HE DID HAVE C/O PAIN AND WAS MEDICATED W/ PRN ROXINOL VIA EMAR. D/T WEAKNESS AND IMMOBILITY HE WAS REPOSITIONED FREQUENTLY. HE DID USE 3L OF O2 MOST OF THE SHIFT, BUT WHEN CHECKING MORNING VITALS HIS SATS WERE LOW AND HE REQUIRED A BUMP UP TO 5L TO STAY >93%. WE'LL CONTINUE TO MONITOR THE REMAINDER OF THE SHIFT.
--- NOTE | 2022-02-09 14:49 | NUR ---
Case conference with RN. Pt is continuing to show decline in respiratory status and mentation. She has updated brother, who is still most concerned with nutritional intake. Per RN to call brother with an update today also.
--- NOTE | 2022-02-09 18:23 | NUR ---
SHIFT SUMMARY PATIENT MEDICATED FOR AIR HUNGER X1, PATIENT MEDICATED FOR AGITATION X2. PATIENT DENIES NAUSEA. EARLY IN SHIFT PATIENT DESATTING TO 85. RESP INCREASING, RT CALLED. O2 INCREASED TO 5L, BREATHING TREATMENT GIVEN, MEDICATED FOR AIR HUNGER. IN AFTERNOON, PATIENT FREQUENTLY YELLING OUT FOR HELP. UNABLE TO TELL STAFF WHAT HE NEEDED. ATTEMPTED TO GIVE PATIENT FLUIDS, REPOSITIONED, ETC. PATIENT STILL YELLED OUT. PATIENT DESATURATING TO 82. O2 INCREASED TO 6L. PATIENT CONTINUED TO PULL OXYGEN OFF, PULL AT CONTINUOUS MONITOR, PULL AT CATH, ATTEMPTING TO SWING LEGS OUT OF BED. DR. CABAN NOTIFIED. NEW ORDERS. PATIENTS BROTHER CALLED FOR UPDATE. INFORMED HIM OF EVENTS OF TODAY AND HOW PATIENT STRUGGLING TO BREATH. PATIENT BROTHER CONTINUED TO ASK ONLY ABOUT ARTIFICIAL NUTRITION. NOTIFIED DR. CABAN. TALKED TO PALLIATIVE CARE. SEE NOTE. PATIENT REFUSING MOST MEALS, ONLY WANTING TO EAT A FEW BITES. PATIENT ENCOURAGED TO EAT. ENSURE PROVIDED FREQUENTLY THROUGHOUT SHIFT.
--- NOTE | 2022-02-10 05:20 | NUR ---
SHIFT SUMMARY: PATIENT CONTINUES TO CALL OUT FOR HELP FROM ROOM DEPSITE ACKNOWLEDING HE KNOWS HOW TO USE CALL LIGHT. HE WILL YELL "HELP" WHILE STAFF ARE AT BEDSIDE. HE CANNOT VERBALIZE WHY HE NEEDS HELP STATES THINGS LIKE "WHEN WILL THIS ALL END?" "WHY WON'T THEY LET ME , WHY ARE DO THEY WANT TO KEEP ME ALIVE AND MAKE ME SUFFER?" PATIENT PROVIDED SCHEDULED MEDICATIONS AND PRN ROXINAL X1. DID SLEEP WELL S/P MED ADMINISTRATION. KYLEE MARTINEZ URINE WITH SEDIMENT, SAT > 92% ON 5L VIA NC. DIMINISHED LUNGS. SEE ASSSSMENT CHARTING FOR FURTHER DETAILS.
[2022-02-10 05:44] LABS: Vancomycin, Trough 22.3 ug/mL (5.0-10.0)
--- NOTE | 2022-02-10 17:55 | NUR ---
SHIFT SUMMARY PT RESTING QUIETLY AT START OF SHIFT. WAKES EASILY FOR CARE. PT NOT WANTING TO EAT MUCH AT ALL FOR BREAKFAST OR LUNCH. DID DRINK SOME OF HIS ENSURES. PT HAS TO BE FED ONE SPOONFUL AT A TIME; VERY SLOW AND TIME CONSUMING. PT UNABLE TO FEED HIMSELF AT ALL EITHER. PT IS VERY NEEDY. MOSTLY UNCOMFORTABLE AND MISERABLE, WANTING TO BE REPOSITIONED FREQUENTLY, BUT NOT WANTING TO STAY OFF OF BUTTOCKS. PT REPOSITIONED OFF BUTTOCKS WITH PILLOWS. INCONTINENT OF BOWELS. LUNGS T/O COARSE IN THE BASES. CALL LT IN REACH, BUT MOSTLY YELLS OUT FOR NEEDS. PT NOT WANTING TO PARTICIPATE WITH SP TX AGAIN TODAY.
[2022-02-10 22:58] LABS: PCO2 Arterial 65.2 mmHg (35-45); PO2 Arterial 75.7 mmHg (80-100); pH Blood Arterial 7.35 (7.35-7.45)
--- NOTE | 2022-02-11 05:42 | NUR ---
SHIFT SUMMARY: PATIENT REMOVED NASAL CANNULA AND DESAT 83%. TACHYPNEA RR 28, WITH ACCESORRY MUSCLE USE NOTED, AND SHALLOW BREATHS. NOTED DREIED BLOOD TO RIGHT NARES PATIENT STATED HE HAD EPITAXIS EARLY AFTERNOON. CANNULA REPLACED COACING PROVIED AND SAT >90%. PATIENT CONTINUED TO COMPLAIN OF SOB AND REQUESTED HIS MORPHINE TO HELP. PRN ROXINAL PROVIDED. PATIENT BIOX ALARM SOUNDING FOUND PATIENT SATURATIONS 78% CANNULA IN NARES. PATIENT MOUTH BREATHING THUS CANNULA PLACED INTO MOUTH, COULD NOT GET SAT > 82%. RT SUMMONED TO ROOM BREATHING TX PROVIDED AND PLACED ON HFLNC 12L FOR SAT > 90%. PATIENT IS AROUSABLE BUT VERY LETHARIGIC AND SLOW TO RESPOND. THIS IS A CHANGE FROM BASELINE. MD CONTACTED ABG ORDERED. PATIENT IS TO LEHARGIC TO SAFELY TAKE PO MEDICATIONS. 2100 MEDICATIONS HELD. 0545 PATIENT SAT REMIANED > 92% REMAINDER OF SHIFT, NO CHANGES TO PATIENTS MENTATION. REPOSITIONED Q2. DOES CALL OUT FROM TIME TO TIME.
--- NOTE | 2022-02-11 13:00 | NUR ---
Met with pt today; he has decided to begin comfort care, and stated, "I can't do this anymore". He requested assistance placing a call to his brother Kanu. I dialed the phone, and he told his brother, "I'm ready to go brother, I'm going on comfort care. I'm miserable. Please tell everyone I love them". I followed up with his brother and he is in agreement. Pt also tried to call his son Mckay, but couldn't reach him. I left a message for Mckay. Mckay did return the call and spoke to the pt and his bedside RN Glenna. He is also on board with comfort care. Dr. Laurent gave this RN telephone order to begin comfort care. Orders placed. This RN washed pt's hair, rubbed lotion on his skin, and provided therapeutic visit. He is now resting quietly, reports pain well controlled after receiving a larger dose of Roxanol than was previously ordered for him prior to comfort care. Request Roller Leveler Operator make a visit today, and Palliative care will continue with therapeutic visits.
--- NOTE | 2022-02-11 14:36 | NUR ---
SHIFT SUMMARY PT AWAKE AT START OF SHIFT, WITH RT AT BS. PT PLACED ON HIGHFLOW O2 D/T BIOX DECREASING. PT WITH LUNG CA, LUNG MASSES DECREASING LUNG CAPACITY, AND PLEURAL EFFUSION CAUSING AIR HUNGER AND ANXIETY. BP DECREASED THIS AM WELL, PT UNABLE TO TAKE IN PO D/T ASPIRATION AND CHOKING ON EVERYTHING. DR CABAN NOTIFIED AND UPDATED ON PT STATUS. NEW ORDERS PLACED. PT STATED THAT HE WAS TIRED OF BEING MISERABLE AND IN PAIN. PT WANTING TO BE COMFORTABLE AND STATED THAT HE WANTED TO BE MADE COMFORT CARE. PALLIATIVE CARE RN, HERE TO TALK WITH PT FOR A WHILE AND DISCUSS HIS WISHES AND PLAN OF CARE. PALLIATIVE CARE RN ASSISTED PT IN CALLING HIS BROTHER. PT TOLD HIM TO LET HIM BE MADE COMFORTABLE AND THAT HE WAS TIRED OF SUFFERING. PALLIATIVE CARE TALKED WITH BROTHER ALSO AND THEN CALLED PT'S SON WELL. PT AND FAMILY AGREED THAT PT SHOULD BE MADE COMFORT CARE. COMFORT CARE ORDERS PLACED AND PT MEDICATED PER EMAR AND PT REQUEST. PT HAS FINALLY BEEN RESTING QUIETLY, NOT AGITATED AND MISERABLE HE WAS THE FIRST PART OF THE DAY. WILL CONTINUE TO MONITOR.
--- NOTE | 2022-02-11 16:11 | NUR ---
Spiritual care visit conducted. Pt is resting when I enter the but opens his eyes at the sound of his name. He answers in one or two word sentences. He tells me that he is in less pain and that he is fearful. I ask of what and he says, "." He does not expand but just stares at me. I talk about the xiang elements that he mentioned weeks ago to me and so I simply reminded him of what he stated was meaningful to him at the time. This seemed to be of comfort to him. I also provided prayer which appeered to further the peace he was looking for, at least in that moment. Pt says "Amen" after the prayer and then slowly closed his eyes and drifted back to sleep. I allow pt to sleep but will remain available.
--- NOTE | 2022-02-12 04:39 | NUR ---
SHIFT SUMMARY PT CONFUSED AND TAKING OFF NASAL CANULA, DESATTING INTO THE 50'S. PT MEDICATED WITH ATIVAN AND HAS BEEN SLEEPING MUCH OF THE NIGHT AFTERWARDS, OXYGEN SATURATING IN HIGH 80'S/LOW 90'S. PT DOES NOT USE CALL LIGHT AND YELLS WHEN IN NEED OF ASSISTANCE. PT'S ROOM DOOR LEFT OPEN FOR THIS REASON.
--- NOTE | 2022-02-12 12:04 | NUR ---
Pt was placed on comfort care yesterday at his request. His brother was also consulted by phone by both pt and this RN. Pt's son also called and spoke to bedside RN Glenna yesterday and v/u. Pt has only required 2 doses of roxanol since then, and has used lorazepam for anxiety 3 times total. His respirations are even, unlabored. He is able to rest for longer periods now that he is adequately medicated. Palliative to continue supportive visits daily.
--- NOTE | 2022-02-12 15:41 | NUR ---
PATIENT IS ON COMFORT CARE. 1-2 PERSON ASST FOR CARE AND REPOSITIONING, REPOSITIONED Q2. PT DOES NOT USE CALL-LIGHT AND CALLS OUT FROM TIME TO TIME WHEN IN NEED OF ASSISTANCE. CURRENTLY ON AIRVO 60L/MIN 70%O2. THE PLAN IS TO PLACE HIM ON HIGHFLOW AND TITRATE O2 L RATE DOWN FOR BED PLACEMENT. PT IS GETTING ROXANOL AND LORAZEPAM NEEDED FOR PAIN AND ANXIETY. RESPIRATIONS EVEN AND UNLARBORED, ABLE TO REST FOR LONG PERIODS. BED IN LOWEST POSITION CALL-LIGHT IN REACH.
--- NOTE | 2022-02-12 23:50 | NUR ---
PT ON COMFORT CARE. WENT TO CHECK ON PT, FOUND PT WITH NO PULSE AND NO RESPIRATIONS. CONFIRMED WITH SUSAN MYERS. SON NOTIFIED OF PT PASSING. [facility] IS PREFERRED MORTUARY. MD AND NURSING FARM LOAN INSPECTOR MADE AWARE OF PT PASSING.
--- NOTE | 2022-02-13 01:33 | NUR ---
LINDA HWANG FROM MORTUARY ARRIVED AT 0126 TO TAKE PT. PT LEFT MEDICAL FLOOR AT 0133.
== END 2022-02-12 23:50 | DRG 698 ==
LOC: ER 13:51 → ICUW 22:09 → MEDS 22:09 → PCU 22:09 → MEDS 22:09 → PCU 12-10 00:26 → MEDS 12-12 14:44 → ICUW 02-04 01:25 → PCU 02-06 16:49 → MEDS 02-07 00:38
PROVIDERS: Family Medicine; Internal Medicine; Internal Medicine Critical Care Medicine; Pharmacist; Specialist; Student in an Organized Health Care Education/Training Program; ADMIT Internal Medicine
PROC: 0W993ZZ Drainage of Right Pleural Cavity, Percutaneous Approach (ICD-10-PCS; 2021-12-15)
PROC: 0W9930Z Drainage of Right Pleural Cavity with Drainage Device, Percutaneous Approach (ICD-10-PCS; principal; 2022-01-01)
PROC: 5A09457 Assistance with Respiratory Ventilation, 24-96 Consecutive Hours, Continuous Positive Airway Pressure (ICD-10-PCS; 2022-02-03)
DX: T83.510A Infection and inflammatory reaction due to cystostomy catheter, initial encounter (principal); J13 Pneumonia due to Streptococcus pneumoniae; I50.33 Acute on chronic diastolic (congestive) heart failure; J96.21 Acute and chronic respiratory failure with hypoxia; E43 Unspecified severe protein-calorie malnutrition; G92.8 Other toxic encephalopathy; C91.10 Chronic lymphocytic leukemia of B-cell type not having achieved remission; I48.20 Chronic atrial fibrillation, unspecified; J91.8 Pleural effusion in other conditions classified elsewhere; J98.11 Atelectasis; Z66 Do not resuscitate; Z51.5 Encounter for palliative care; K59.00 Constipation, unspecified; I25.10 Atherosclerotic heart disease of native coronary artery without angina pectoris; Z20.822 Contact with and (suspected) exposure to COVID-19; F41.8 Other specified anxiety disorders; G47.33 Obstructive sleep apnea (adult) (pediatric); I71.4 Abdominal aortic aneurysm, without rupture; Y84.6 Urinary catheterization as the cause of abnormal reaction of the patient, or of later complication, without mention of misadventure at the time of the procedure; N40.0 Benign prostatic hyperplasia without lower urinary tract symptoms; R04.0 Epistaxis; D64.9 Anemia, unspecified; F03.90 Unspecified dementia, unspecified severity, without behavioral disturbance, psychotic disturbance, mood disturbance, and anxiety; E11.51 Type 2 diabetes mellitus with diabetic peripheral angiopathy without gangrene; E78.5 Hyperlipidemia, unspecified; B95.2 Enterococcus as the cause of diseases classified elsewhere; N30.90 Cystitis, unspecified without hematuria; B96.1 Klebsiella pneumoniae [K. pneumoniae] as the cause of diseases classified elsewhere; I11.0 Hypertensive heart disease with heart failure; Z96.652 Presence of left artificial knee joint; Z68.27 Body mass index [BMI] 27.0-27.9, adult; Z98.890 Other specified postprocedural states; Z87.891 Personal history of nicotine dependence; Z88.8 Allergy status to other drugs, medicaments and biological substances; Z88.6 Allergy status to analgesic agent; Z79.01 Long term (current) use of anticoagulants; Z79.899 Other long term (current) drug therapy; Z78.1 Physical restraint status
CPT/HCPCS: 0241U; 32555; 36415; 36600; 51702; 71045; 71046; 71250; 71260; 73706; 74177; 74230; 80048; 80053; 80069; 80202; 81001; 82042; 82150; 82533; 82565; 82728; 82803; 82945; 82947; 83540; 83550; 83605; 83615; 83690; 83735; 83880; 83986; 84100; 84145; 84157; 84484; 84550; 85025; 85027; 85379; 85610; 85730; 87015; 87040; 87070; 87077; 87086; 87102; 87116; 87147; 87186; 87205; 87206; 87252; 87254; 88108; 88305; 88312; 89051; 92526; 92610; 92611; 93005; 93010; 93306; 93925; 93926; 93971; 94640; 94660; 94664; 94760; 94762; 96365; 96366; 96367; 96375; 97110; 97110-CQ; 97112; 97129; 97162; 97166; 97530; 97530-CQ; 97535; 99285-25; A9270; C1751; J0295; J0461; J0696; J1644; J1940; J2060; J2405; J2543; J3010; J3370; J7030; J7040; J7050; J7060; P9046; Q9967; U0004